=== PATIENT | female | born 1950 | race Caucasian/White ===

== ENCOUNTER 2024-07-15 12:23 | Observation (INO) ==
[2024-07-15 13:12] LABS: Basophils # (auto) 0.04 K/uL (0.00-0.20); Basophils % (auto) 0.5 %; Eosinophils # (auto) 0.05 K/uL (0.00-0.50); Eosinophils % (auto) 0.6 %; Hematocrit (blood only) 38.3 % (37.0-47.0); Hemoglobin 13.3 g/dl (12.0-16.0); Immature Granulocytes # (auto) 0.02 K/uL (0.01-0.20); Immature Granulocytes % (auto) 0.2 %; Lymphocytes # (auto) 1.52 K/uL (1.20-3.40); Lymphocytes % (auto) 17.3 %; Mean Corpuscular Hemoglobin 31.7 pg (25.0-34.0); Mean Corpuscular Hgb Conc 34.7 g/dL (32.0-36.0); Mean Corpuscular Volume 91.2 fL (80.0-100.0); Mean Platelet Volume 10.6 fL (9.4-12.4); Monocytes # (auto) 1.01 K/uL (0.11-0.59); Monocytes % (auto) 11.5 %; Neutrophils # (auto) 6.14 K/uL (1.40-6.50); Neutrophils % (auto) 69.9 %; Platelet Count 192 K/uL (130-400); RDW Coefficient of Variation 12.6 % (11.5-14.5); RDW Standard Deviation 42.3 fL (36.4-46.3); White Blood Count 8.78 K/ul (4.8-10.8)
[2024-07-15 13:28] LABS: Albumin Globulin Ratio 1.2 (0.9-2); Albumin Level 4.1 gm/dl (3.4-5.0); BUN Creatinine Ratio 14.1 (10-20); Bilirubin,Total 0.6 mg/dl (0.2-1.0); Creatinine Clr Calc Pharmacy 55.7 ml/min; Globulin 3.5 gm/dl (2.5-4.0); Potassium 3.6 mmol/L (3.5-5.1); Total Protein 7.6 gm/dl (6.0-8.3)
[2024-07-15 13:41] LABS: INR 0.9 (0.9-1.1); Partial Thromboplastin Time 26 Seconds (21-31); Prothrombin Time 10.1 Seconds (9.0-12.0)
[2024-07-15 13:54] LABS: Adenovirus PCR Not Detected (NotDetected); Bordetella parapertussis PCR Not Detected (NotDetected); Bordetella pertussis PCR Not Detected (NotDetected); Chlamydia pneumoniae PCR Not Detected (NotDetected); Coronavirus 229E PCR Not Detected (NotDetected); Coronavirus CoV-2 (COVID19)PCR Not Detected (NotDetected); Coronavirus HKU1 PCR Not Detected (NotDetected); Coronavirus NL63 PCR DETECTED (NotDetected); Coronavirus OC43PCR Not Detected (NotDetected); Human Metapneumovirus PCR Not Detected (NotDetected); Influenza A PCR Not Detected (NotDetected); Influenza B PCR Not Detected (NotDetected); Mycoplasma pneumoniae PCR Not Detected (NotDetected); Parainfluenza Virus 1 PCR Not Detected (NotDetected); Parainfluenza Virus 2 PCR Not Detected (NotDetected); Parainfluenza Virus 3 PCR Not Detected (NotDetected); Parainfluenza Virus 4 PCR Not Detected (NotDetected); Respiratory Syncytial VirusPCR Not Detected (NotDetected); Rhinovirus/Enterovirus PCR Not Detected (NotDetected)
--- NOTE | 2024-07-15 14:15 | XRay Report ---
XR chest 1V portable HISTORY: 73 years-old Female Chest pain, nonspecific COMPARISON: None TECHNIQUE: AP view of the chest FINDINGS: Cardiomediastinal and hilar silhouettes are within normal limits. No pneumothorax, pleural effusion, airspace consolidation or pulmonary edema. Bones of the chest appear grossly intact. IMPRESSION: No acute process. ACT 112: Negative or not required by law. The above report was generated using voice recognition software. It may contain grammatical, syntax o r spelling errors. Electronically signed by: Sincere Turner M.D. 07/15/2024 2:14 PM
--- NOTE | 2024-07-15 14:21 | Electrocardiogram Report ---
Test Reason : Blood Pressure : */* mmHG Vent. Rate : 123 BPM Atrial Rate : * BPM P-R Int : * ms QRS Dur : 80 ms QT Int : 310 ms P-R-T Axes : * 75 37 degrees QTcB Int : 443 ms Atrial flutter with rapid ventricular response with premature ventricular or aberrantly conducted com plexes Abnormal ECG When compared with ECG of 08-Sep-2021 11:02, Atrial flutter has replaced Sinus rhythm Vent. rate has increased by 47 bpm Confirmed by Gaudencio Leach ([id number]) on 07/15/2024 2:20:29 PM Referred By: REFERRED SELF Confirmed By: Gaudencio Leach
[2024-07-15] MEDS: OPTIRAY 320 125ml IV ONE (14:49)
--- NOTE | 2024-07-15 15:09 | CT Scan Report ---
CT ANGIOGRAM OF THE CHEST CLINICAL HISTORY: Syncope. COMPARISON STUDY: Chest radiograph performed earlier today. TECHNIQUE: Following the IV administration of 118 cc of Optiray 320, CT angiogram of the chest was pe rformed from the upper abdomen to the thoracic inlet utilizing the pulmonary embolus protocol. Images are reviewed in the axial, sagittal, and coronal planes. 3-D MIPS images are created and assessed. I V contrast was administered without complication. A dose lowering technique was utilized adhering to the principles of ALARA. CT DOSE: 273.47 mGy.cm FINDINGS: Thyroid: Unremarkable. Thoracic aorta: The caliber of the thoracic aorta is normal. No dissection is seen. Pulmonary vasculature: The caliber of the pulmonary trunk is normal. There are no filling defects elaine ntified in main, lobar, or segmental pulmonary branches to suggest pulmonary embolus. Heart: The heart is mildly enlarged. There is no pericardial effusion. Lungs and pleural spaces: The lungs and pleural spaces are clear. Subpleural biapical opacities repre sent scarring. Ground glass opacities within the lungs favor atelectasis. Mediastinum: There is no mediastinal lymphadenopathy. Arcelia: There is no hilar adenopathy. Axillae: There is no axillary lymphadenopathy. Upper abdomen: Visualized portions of the upper abdomen are unremarkable. Skeletal structures: No lytic or blastic bony lesions are seen. IMPRESSION: 1. No pulmonary emboli identified. 2. Mild cardiomegaly. 3. No acute traumatic findings within the chest. ACT 112: Negative or not required by law. Electronically signed by: Sreekanth Gonsalez M.D. 07/15/2024 3:08 PM
--- NOTE | 2024-07-15 15:29 | Emergency Department Note ---
Impression & Plan Syncope, Paroxysmal atrial fibrillation ED Provider Note NAME: KAMALJIT AVILA AGE: 73 SEX: F : 1950 ARRIVES VIA: Walk-In INFORMANT: Patient, ED PROVIDER(S): Vickie Lopez MD CHIEF COMPLAINT: Syncope x 3 HPI: This is 73-year-old female presenting for syncope. Patient states that she felt she had a cold starting Monday, 3 days ago. She started to feel better today. She went to the gym to go on the bicycle. She notes that she was barely able to do this. She came home and passed out for a total of 3 times. The last time her a catcher. She noted lightheaded and weak prior to each syncope. She does not think she hit her head. She is on blood thinners. She and her heart rate was elevated earlier as per her watch and feeling in her chest. She reports no shortness of breath at this time. Her Fitbit that she was in A-fib. The patient is never been in A-fib before. Patient notes that she went home and checked her blood pressure and it was in the 70s. She did drink k water order in an attempt to improve this. ROS: See above HPI for pertinent positives & negatives. A total of 10 systems reviewed and were otherwise negative. PAST MEDICAL HISTORY: See Below PAST SURGICAL HISTORY: See Below FAMILY HISTORY: See Below SOCIAL HISTORY: See Below HOME MEDICATIONS: See Below ALLERGIES: See Below VITALS: See Below PHYSICAL EXAMINATION: General: resting comfortably in no acute distress Head: Normocephalic and atraumatic Eyes: Normal inspection, extraocular muscles intact Ear, nose, throat: Normal external exam Neck: Normal range of motion Respiratory: lungs clear to auscultation bilaterally Cardiovascular: Regular rate/rhythm, no murmur GI: soft, nontender, no guarding or rebound Extremities: nontender, moves all extremities Neuro: The patient awake and alert, appropriately conversive, no focal deficits, symmetric faces Skin: Warm, dry, and intact this is MEDICAL DECISION MAKING: This is a 73-year-old female presenting for syncope. Patient has syncope 3 separate times today. She is felt ill with URI prodrome. Improved today but then had syncope x3. -First EKG here does show atrial fibrillation with RVR. -Patient's troponin which was sent at triage is slightly elevated at over 36 -With patient's symptoms of atrial fibrillation, troponin, syncope, will do a PE rule out however low likelihood of this without chest pain, hypoxia -Second EKG does show patient is now in sinus rhythm again. -Patient's PE scan is currently negative for pulm embolism. -No leukocytosis, anemia noted. Sodium is 131. Otherwise patient is positive for coronavirus NL 63 -At this time with patient having prodrome of URI, new onset of paroxysmal atrial fibrillation, syncope x 3, low blood pressure and elevated troponins, will discuss for admission with [facility] hospitalist team under Dr. Bushra Vladovinos for further workup. Differential diagnosis: Cardiogenic syncope, PE, dehydration, atrial fibrillation Independent History obtained from: Diagnostics interpreted by me: First ECG: ECG independently interpreted by me with atrial fibrillation with RVR at a rate of 123, QRS 80, QTc 433, no ST segment elevation consistent for STEMI Second ECG independently interpreted by me with normal sinus rhythm, rate of 69, normal axis, normal MN, normal QRS, normal QTc, no ST segment elevations consistent with STEMI criteria Cardiac Monitoring: An order was placed for continuous cardiac monitoring. The monitor shows a rate of 77 with sinus rhythm. Past Med/Surg History Problem List (Updated 07/15/24 @ 18:33 by Vickie Lopez MD) Paroxysmal atrial fibrillation (Acute) Syncope (Acute) Medical History (Updated 07/15/24 @ 18:33 by Vickie Lopez MD) History of basal cell carcinoma Age related osteoporosis Age-related macular degeneration Hyperlipidemia LDL goal <100 Primary open angle glaucoma Osteoporosis Surgical History (Updated 07/15/24 @ 16:57 by Nanci Alvarado PA-C) History of tubal ligation History of Mohs micrographic surgery for skin cancer History of hand surgery Family History (Updated 07/15/24 @ 16:58 by Nanci Alvarado PA-C) Other Glaucoma Rheumatoid arthritis Stroke Social History Smoking Status: Former smoker Preferred Language: [place] Feels Safe at Home: Yes Allergies Allergies Allergy/AdvReac Type Severity Reaction Status Date / Time Penicillins Allergy Hives Verified 07/15/24 16:55 Home Meds Home Medications Medication Instructions Recorded Confirmed alendronate 70 mg tablet 70 mg PO WK 07/15/24 07/15/24 brimonidine 0.15 % eye drops 1 drp ophthalmic (eye) TID 07/15/24 07/15/24 brinzolamide 1 %-brimonidine 0.2 % See Rx Instructions .Route .COMPLEX 07/15/24 07/15/24 eye drops,suspension (Simbrinza) eszopiclone 2 mg tablet 2 mg PO HS PRN Insomnia 07/15/24 07/15/24 latanoprostene bunod 0.024 % eye 1 drp ophthalmic (eye) HS 07/15/24 07/15/24 drops (Vyzulta) mv-mn-folic 200 mcg-vit K 15 1 cap PO BID 07/15/24 07/15/24 mcg-lutein 5 mg-zeaxanthin 1 mg capsule (PreserVision AREDS 2 Plus Multivit) rosuvastatin 5 mg tablet 5 mg PO DAILY 07/15/24 07/15/24 Previous Rx's Medication Instructions Recorded apixaban 5 mg tablet (Eliquis) 5 mg PO BID #60 tabs 07/15/24 metoprolol tartrate 25 mg tablet 12.5 mg (1/2 x 25 mg) PO BID 30 07/15/24 days #30 tabs Results & Data (ED) Vital Signs Vital Signs - 24 hr 07/15/24 12:26 07/15/24 14:02 07/15/24 14:45 Temperature 36.7 C Temperature Source Temporal Artery Scan Pulse Rate 94 H 73 Pulse Rate [Finger] 73 Respiratory Rate 19 18 Respiratory Effort / Characteristics Spontaneous Labored Non-Labored Spontaneous Respiratory Depth Normal Normal Respiratory Pattern Regular Regular Blood Pressure 105/71 Blood Pressure [Right Arm] 117/80 Blood Pressure Mean 82 Blood Pressure Mean [Right Arm] 92 Pulse Oximetry 99 100 Oxygen Delivery Method Room Air Room Air Sepsis Recent Fever Within 48 Hours No Sepsis New/Unexplained Change in Mental Status N/A Sepsis Action Taken by Nursing No Action Required 07/15/24 16:04 Temperature Temperature Source Pulse Rate Pulse Rate [Finger] 77 Respiratory Rate 18 Respiratory Effort / Characteristics Non-Labored Respiratory Depth Normal Respiratory Pattern Blood Pressure Blood Pressure [Right Arm] 137/84 Blood Pressure Mean Blood Pressure Mean [Right Arm] 101 Pulse Oximetry 95 Oxygen Delivery Method Room Air Sepsis Recent Fever Within 48 Hours Sepsis New/Unexplained Change in Mental Status Sepsis Action Taken by Nursing Laboratory Data 07/15/24 12:49 07/15/24 12:49 Lab Results 07/15/24 07/15/24 Range/Units 12:49 14:29 WBC 8.78 (4.8-10.8) K/ul RBC 4.20 (4.20-5.40) M/uL Hgb 13.3 (12.0-16.0) g/dl Hct 38.3 (37.0-47.0) % MCV 91.2 (80.0-100.0) fL MCH 31.7 (25.0-34.0) pg MCHC 34.7 (32.0-36.0) g/dL RDW Std Deviation 42.3 (36.4-46.3) fL RDW Coeff of Stephania 12.6 (11.5-14.5) % Plt Count 192 (130-400) K/uL MPV 10.6 (9.4-12.4) fL Immature Gran % (Auto) 0.2 % Neut % (Auto) 69.9 % Lymph % (Auto) 17.3 % [place] % (Auto) 11.5 % Eos % (Auto) 0.6 % Baso % (Auto) 0.5 % Neut # (Auto) 6.14 (1.40-6.50) K/uL Lymph # (Auto) 1.52 (1.20-3.40) K/uL [place] # (Auto) 1.01 H (0.11-0.59) K/uL Eos # (Auto) 0.05 (0.00-0.50) K/uL Baso # (Auto) 0.04 (0.00-0.20) K/uL Immature Gran # (Auto) 0.02 (0.01-0.20) K/uL PT 10.1 (9.0-12.0) Seconds INR 0.9 (0.9-1.1) APTT 26 (21-31) Seconds PTT Ratio 1.0 Sodium 131 L (136-145) mmol/L Potassium 3.6 (3.5-5.1) mmol/L Chloride 98 (98-107) mmol/L Carbon Dioxide 24 (21-32) mmol/L Anion Gap 9 (3-11) BUN 11 (6-23) mg/dl Creatinine 0.78 (0.6-1.2) mg/dl Est Cr Clr Drug Dosing 55.7 ml/min eGFR 80.65 BUN/Creatinine Ratio 14.1 (10-20) Glucose 146 H (70-99(Fasting)) mg/dl Calcium 9.0 (8.6-10.3) mg/dl Magnesium 2.3 (1.7-2.4) mg/dl Total Bilirubin 0.6 (0.2-1.0) mg/dl AST 30 (13-39) U/L ALT 28 (7-52) U/L Alkaline Phosphatase 62 (34-104) U/L Troponin I High Sens 36.0 H 33.4 H (0-14) pg/ml Total Protein 7.6 (6.0-8.3) gm/dl Albumin 4.1 (3.4-5.0) gm/dl Globulin 3.5 (2.5-4.0) gm/dl Albumin/Globulin Ratio 1.2 (0.9-2) TSH 2.374 (0.300-4.500) uIu/ml Adenovirus (PCR) Not Detected (NotDetected) B. pertussis DNA (PCR) Not Detected (NotDetected) B.parapertussis DNA PCR Not Detected (NotDetected) C. pneumoniae DNA (PCR) Not Detected (NotDetected) Coronavirus OC43 (PCR) Not Detected (NotDetected) Coronavirus HKU1 (PCR) Not Detected (NotDetected) Coronavirus 229E (PCR) Not Detected (NotDetected) SARS-CoV-2 (PCR) Not Detected (NotDetected) Coronavirus NL63 (PCR) DETECTED A (NotDetected) Human Metapneumovir PCR Not Detected (NotDetected) Influenza Type A (PCR) Not Detected (NotDetected) Influenza Type B (PCR) Not Detected (NotDetected) M. pneumoniae (PCR) Not Detected (NotDetected) Parainfluenza 1 (PCR) Not Detected (NotDetected) Parainfluenza 2 (PCR) Not Detected (NotDetected) Parainfluenza 3 (PCR) Not Detected (NotDetected) Parainfluenza 4 (PCR) Not Detected (NotDetected) RSV (PCR) Not Detected (NotDetected) Entero/Rhino (PCR) Not Detected (NotDetected) Administered Medications Discontinued Medications Ioversol (Optiray 320 125ml) 118 ml IV ONCE ONE Stop: 07/15/24 14:50 Last Admin: 07/15/24 14:49 Dose: 118 ml Documented By: [facility] Imaging Data Radiologist's Impression: Chest X-Ray 07/15/24 12:33 XR chest 1V portable HISTORY: 73 years-old Female Chest pain, nonspecific COMPARISON: None TECHNIQUE: AP view of the chest FINDINGS: Cardiomediastinal and hilar silhouettes are within normal limits. No pneumothorax, pleural effusion, airspace consolidation or pulmonary edema. Bones of the chest appear grossly intact. IMPRESSION: No acute process. ACT 112: Negative or not required by law. The above report was generated using voice recognition software. It may contain grammatical, syntax or spelling errors. Electronically signed by: Sincere Turner M.D. 07/15/2024 2:14 PM Chest CTA 07/15/24 14:21 CT ANGIOGRAM OF THE CHEST CLINICAL HISTORY: Syncope. COMPARISON STUDY: Chest radiograph performed earlier today. TECHNIQUE: Following the IV administration of 118 cc of Optiray 320, CT angiogram of the chest was performed from the upper abdomen to the thoracic inlet utilizing the pulmonary embolus protocol. Images are reviewed in the axial, sagittal, and coronal planes. 3-D MIPS images are created and assessed. IV contrast was administered without complication. A dose lowering technique was utilized adhering to the principles of ALARA. CT DOSE: 273.47 mGy.cm FINDINGS: Thyroid: Unremarkable. Thoracic aorta: The caliber of the thoracic aorta is normal. No dissection is seen. Pulmonary vasculature: The caliber of the pulmonary trunk is normal. There are no filling defects identified in main, lobar, or segmental pulmonary branches to suggest pulmonary embolus. Heart: The heart is mildly enlarged. There is no pericardial effusion. Lungs and pleural spaces: The lungs and pleural spaces are clear. Subpleural biapical opacities represent scarring. Ground glass opacities within the lungs favor atelectasis. Mediastinum: There is no mediastinal lymphadenopathy. Arcelia: There is no hilar adenopathy. Axillae: There is no axillary lymphadenopathy. Upper abdomen: Visualized portions of the upper abdomen are unremarkable. Skeletal structures: No lytic or blastic bony lesions are seen. IMPRESSION: 1. No pulmonary emboli identified. 2. Mild cardiomegaly. 3. No acute traumatic findings within the chest. ACT 112: Negative or not required by law. Electronically signed by: Sreekanth Gonsalez M.D. 07/15/2024 3:08 PM Carotid Doppler Study 07/15/24 16:04 EXAM: US Duplex Bilateral Extracranial Arteries INDICATION: Syncope TECHNIQUE: Real-time duplex ultrasound scan of the extracranial arteries integrating B-mode two-dimensional vascular structure, Doppler spectral analysis and color flow Doppler imaging. COMPARISON: No relevant prior studies available. FINDINGS: Right common carotid artery: Mild intimal thickening. Peak systolic velocity 84 cm/s. No occlusion or segmental stenosis on color flow and spectral Doppler imaging. Right internal carotid artery: Minimal plaque and intimal thickening. Peak systolic velocity 117 cm/s. No occlusion or segmental stenosis on color flow and spectral Doppler imaging. Right external carotid artery: No abnormality noted. No occlusion or segmental stenosis on color flow and spectral Doppler imaging. Right vertebral artery: No abnormality noted. Antegrade flow. Right ICA/CCA ratio: 1.4. Within normal limits. Left common carotid artery: Mild intimal thickening. Peak systolic velocity 84 cm/s. No occlusion or segmental stenosis on color flow and spectral Doppler imaging. Left internal carotid artery: Mild plaque noted. Peak systolic velocity 106 cm/s. No occlusion or segmental stenosis on color flow and spectral Doppler imaging. Left external carotid artery: No abnormality noted. No occlusion or segmental stenosis on color flow and spectral Doppler imaging. Left vertebral artery: No abnormality noted. Antegrade flow. Left ICA/CCA ratio: 1.1. Within normal limits. Lymph nodes: No abnormality noted. No lymphadenopathy. CAROTID STENOSIS REFERENCE USING IAC CRITERIA: Mild - <50% stenosis. ICA PSV is less than 180 cm/s and plaque or intimal thickening is visible. Moderate - 50-69% stenosis. ICA PSV is 180 to 230 cm/s and plaque is visible. Severe - 70-94% stenosis. ICA PSV is more than 230 cm/s and visible plaque with lumen narrowing is seen. Near occlusion - 95-99% stenosis. ICA PSV is variable and significant plaque with luminal narrowing is seen. Occluded - 100% stenosis. No flow identified. IMPRESSION: There is no hemodynamically significant internal carotid stenosis. ACT 112: N/A Electronically signed by Sol Gregorio 07-15-2024 5:11 PM Discharge Plan Visit Data Chief Complaint: Syncope Stated Complaint: SYNCOPE, AFIB, HYPOTENSION ED Provider: Vickie Lopez Discharge Problem: Syncope, Paroxysmal atrial fibrillation Patient Disposition: Admitted As Inpatient Condition: Good Discharge Instructions Interventions: ED Discharge Assessment Last Done: 07/15/24 18:13 Discharge Problem: Syncope Qualifiers: Syncope type: unspecified Qualified Code(s): R55 - Syncope and collapse
--- NOTE | 2024-07-15 16:31 | History & Physical Report ---
Date of Service July 15, 2024 Assessment & Plan (1) Syncope: (2) Paroxysmal atrial fibrillation: Admission and Anticipated Discharge Date Admission Date: This is a 73 y/o female with hyperlipidemia, primary open angle glaucoma, prior basal cell carcinoma, osteoporosis, and macular degeneration who presents for evaluation of syncope. Syncope likely secondary to episode of atrial fibrillation with RVR, triggered by current viral illness. Initial troponin mildly elevated at 36.0, repeat 33.4. Negative stress test one year ago. #Syncope #Paroxysmal atrial fibrillation - presented in atrial fibrillation with RVR, now in NSR - Check carotid duplex - Check orthostatics - TSH w/ reflex T4, mag If work-up negative, pt would prefer to be discharged for outpatient, which seems reasonable as no additional testing would be indicated at this time. Would discharge on metoprolol BID and Eliquis until seen by cardiology. Possible d/c later today pending above. Pt seen and reviewed with collaborating physician, Dr. Valdovinos. Plan of care discussed and as outlined above. Thom Alvarado PA-C History of Present Illness Chief Complaint: syncope Primary Care Provider: Mary Kenyon, This is a 73 y/o female with hyperlipidemia, primary open angle glaucoma, prior basal cell carcinoma, osteoporosis, and macular degeneration who presents for evaluation of syncope. Pt reports that she is typically very active at baseline reportedly having walked 6 million steps last year without chest pain or dyspnea. Over the last several days, she's had a bad cold but was starting to feel better. This morning, when she got up, she felt like she was dizzy then had a syncopal episode. Her caught her and reported that she was out for around 15 seconds. Attributes symptoms today to being sick. Has been drinking water to stay hydrated. Of note, she had a stress test last year with a hypertensive response so recommended to start on lisinopril. That night, she started with cold symptoms so thought elevated BP may be related to that. When she started the lisinopril, she developed episodes of low BP so her dose was decreased before ultimately being stopped. She is on a statin for hyperlipidemia. Saw cardiology 04/28/23 for LAIRD and abnormal EKG - recommended exercise stress echo. Stress Echo 07/28/23 - negative for inducible ischemia, exercise test terminated due to hypertensive BP response (peak 230/96) with patient having achieved target heart rate Resting Echo 07/28/23 - normal LV wall thickness and wall motion, LVEF 55-59%, LV diastolic dysfunction is moderately abnormal (grade II), no significant valvular heart disease. Allergies Allergy/AdvReac Type Severity Reaction Status Date / Time Penicillins Allergy Hives Verified 07/15/24 16:55 Home Medications Medication Instructions Recorded Confirmed Type alendronate 70 mg tablet 70 mg PO WK 07/15/24 07/15/24 History brimonidine 0.15 % eye drops 1 drp ophthalmic (eye) TID 07/15/24 07/15/24 History brinzolamide 1 %-brimonidine 0.2 % See Rx Instructions .Route .COMPLEX 07/15/24 07/15/24 History eye drops,suspension (Simbrinza) eszopiclone 2 mg tablet 2 mg PO HS PRN Insomnia 07/15/24 07/15/24 History latanoprostene bunod 0.024 % eye 1 drp ophthalmic (eye) HS 07/15/24 07/15/24 History drops (Vyzulta) mv-mn-folic 200 mcg-vit K 15 1 cap PO BID 07/15/24 07/15/24 History mcg-lutein 5 mg-zeaxanthin 1 mg capsule (PreserVision AREDS 2 Plus Multivit) rosuvastatin 5 mg tablet 5 mg PO DAILY 07/15/24 07/15/24 History Past Med/Surg History Problem List (Updated 07/15/24 @ 17:29 by Nanci Alvarado PA-C) Paroxysmal atrial fibrillation Syncope Medical History (Updated 07/15/24 @ 17:29 by Nanci Alvarado PA-C) History of basal cell carcinoma Age related osteoporosis Age-related macular degeneration Hyperlipidemia LDL goal <100 Primary open angle glaucoma Osteoporosis Surgical History (Updated 07/15/24 @ 16:57 by Nanci Alvarado PA-C) History of tubal ligation History of Mohs micrographic surgery for skin cancer History of hand surgery Family History (Updated 07/15/24 @ 16:58 by Nanci Alvarado PA-C) Other Glaucoma Rheumatoid arthritis Stroke Social History Smoking Status: Former smoker Preferred Language: Belgian Feels Safe at Home: Yes Review of Systems Review of Systems: All systems reviewed & are unremarkable except as noted in Subjective Physical Exam Physical Exam: Please see physician note for details of the physical exam. Results & Data Results & Data Vital Signs (Past 12 Hours) Vital Signs Temp Pulse Pulse Resp BP BP Pulse Ox 07/15/24 16:04 77 18 137/84 95 07/15/24 14:45 73 07/15/24 14:02 73 18 117/80 100 07/15/24 12:26 36.7 C 94 H 19 105/71 99 O2 Del Method 07/15/24 16:04 Room Air 07/15/24 14:45 07/15/24 14:02 Room Air 07/15/24 12:26 Room Air Laboratory Results Lab Results 07/15/24 07/15/24 Range/Units 12:49 14:29 WBC 8.78 (4.8-10.8) K/ul RBC 4.20 (4.20-5.40) M/uL Hgb 13.3 (12.0-16.0) g/dl Hct 38.3 (37.0-47.0) % MCV 91.2 (80.0-100.0) fL MCH 31.7 (25.0-34.0) pg MCHC 34.7 (32.0-36.0) g/dL RDW Std Deviation 42.3 (36.4-46.3) fL RDW Coeff of Stephania 12.6 (11.5-14.5) % Plt Count 192 (130-400) K/uL MPV 10.6 (9.4-12.4) fL Immature Gran % (Auto) 0.2 % Neut % (Auto) 69.9 % Lymph % (Auto) 17.3 % Alfalfa % (Auto) 11.5 % Eos % (Auto) 0.6 % Baso % (Auto) 0.5 % Neut # (Auto) 6.14 (1.40-6.50) K/uL Lymph # (Auto) 1.52 (1.20-3.40) K/uL Alfalfa # (Auto) 1.01 H (0.11-0.59) K/uL Eos # (Auto) 0.05 (0.00-0.50) K/uL Baso # (Auto) 0.04 (0.00-0.20) K/uL Immature Gran # (Auto) 0.02 (0.01-0.20) K/uL PT 10.1 (9.0-12.0) Seconds INR 0.9 (0.9-1.1) APTT 26 (21-31) Seconds PTT Ratio 1.0 Sodium 131 L (136-145) mmol/L Potassium 3.6 (3.5-5.1) mmol/L Chloride 98 (98-107) mmol/L Carbon Dioxide 24 (21-32) mmol/L Anion Gap 9 (3-11) BUN 11 (6-23) mg/dl Creatinine 0.78 (0.6-1.2) mg/dl Est Cr Clr Drug Dosing 55.7 ml/min eGFR 80.65 BUN/Creatinine Ratio 14.1 (10-20) Glucose 146 H (70-99(Fasting)) mg/dl Calcium 9.0 (8.6-10.3) mg/dl Total Bilirubin 0.6 (0.2-1.0) mg/dl AST 30 (13-39) U/L ALT 28 (7-52) U/L Alkaline Phosphatase 62 (34-104) U/L Troponin I High Sens 36.0 H 33.4 H (0-14) pg/ml Total Protein 7.6 (6.0-8.3) gm/dl Albumin 4.1 (3.4-5.0) gm/dl Globulin 3.5 (2.5-4.0) gm/dl Albumin/Globulin Ratio 1.2 (0.9-2) Adenovirus (PCR) Not Detected (NotDetected) B. pertussis DNA (PCR) Not Detected (NotDetected) B.parapertussis DNA PCR Not Detected (NotDetected) C. pneumoniae DNA (PCR) Not Detected (NotDetected) Coronavirus OC43 (PCR) Not Detected (NotDetected) Coronavirus HKU1 (PCR) Not Detected (NotDetected) Coronavirus 229E (PCR) Not Detected (NotDetected) SARS-CoV-2 (PCR) Not Detected (NotDetected) Coronavirus NL63 (PCR) DETECTED A (NotDetected) Human Metapneumovir PCR Not Detected (NotDetected) Influenza Type A (PCR) Not Detected (NotDetected) Influenza Type B (PCR) Not Detected (NotDetected) M. pneumoniae (PCR) Not Detected (NotDetected) Parainfluenza 1 (PCR) Not Detected (NotDetected) Parainfluenza 2 (PCR) Not Detected (NotDetected) Parainfluenza 3 (PCR) Not Detected (NotDetected) Parainfluenza 4 (PCR) Not Detected (NotDetected) RSV (PCR) Not Detected (NotDetected) Entero/Rhino (PCR) Not Detected (NotDetected) Diagnostic Findings Chest X-Ray 07/15/24 12:33 XR chest 1V portable HISTORY: 73 years-old Female Chest pain, nonspecific COMPARISON: None TECHNIQUE: AP view of the chest FINDINGS: Cardiomediastinal and hilar silhouettes are within normal limits. No pneumothorax, pleural effusion, airspace consolidation or pulmonary edema. Bones of the chest appear grossly intact. IMPRESSION: No acute process. ACT 112: Negative or not required by law. The above report was generated using voice recognition software. It may contain grammatical, syntax or spelling errors. Electronically signed by: Sincere Turner M.D. 07/15/2024 2:14 PM Chest CTA 07/15/24 14:21 CT ANGIOGRAM OF THE CHEST CLINICAL HISTORY: Syncope. COMPARISON STUDY: Chest radiograph performed earlier today. TECHNIQUE: Following the IV administration of 118 cc of Optiray 320, CT angiogram of the chest was performed from the upper abdomen to the thoracic inlet utilizing the pulmonary embolus protocol. Images are reviewed in the axial, sagittal, and coronal planes. 3-D MIPS images are created and assessed. IV contrast was administered without complication. A dose lowering technique was utilized adhering to the principles of ALARA. CT DOSE: 273.47 mGy.cm FINDINGS: Thyroid: Unremarkable. Thoracic aorta: The caliber of the thoracic aorta is normal. No dissection is seen. Pulmonary vasculature: The caliber of the pulmonary trunk is normal. There are no filling defects identified in main, lobar, or segmental pulmonary branches to suggest pulmonary embolus. Heart: The heart is mildly enlarged. There is no pericardial effusion. Lungs and pleural spaces: The lungs and pleural spaces are clear. Subpleural biapical opacities represent scarring. Ground glass opacities within the lungs favor atelectasis. Mediastinum: There is no mediastinal lymphadenopathy. Arcelia: There is no hilar adenopathy. Axillae: There is no axillary lymphadenopathy. Upper abdomen: Visualized portions of the upper abdomen are unremarkable. Skeletal structures: No lytic or blastic bony lesions are seen. IMPRESSION: 1. No pulmonary emboli identified. 2. Mild cardiomegaly. 3. No acute traumatic findings within the chest. ACT 112: Negative or not required by law. Electronically signed by: Sreekanth Gonsalez M.D. 07/15/2024 3:08 PM Medications Administered Discontinued Medications Ioversol (Optiray 320 125ml) 118 ml IV ONCE ONE Stop: 07/15/24 14:50 Last Admin: 07/15/24 14:49 Dose: 118 ml Documented By: KSF Supervising Physician Co-Signing Physician Notes I have seen and discussed the case with the collaborating advanced practitioner. I agree with the above H&P. I have reviewed and confirmed the patients medical history, the findings on physical examination, and the patients diagnosis and treatment plan with Jenny NICOLAS and agree with the information documented. Ms. Parker is a 73 yo woman admitted for syncope evaluation. Patient was noted to have a fib rvr with rates up to 120-140s but spontaneously converted to NSR Patient reports dealing with bad "cold" for over a week and feeling somewhat better until her syncopal episodes which have since resolved. PAtient denies LAIRD, SOB, palpitations GENERAL APPEARANCE: AxOx4, generally well-appearing f, no acute distress. HEENT: NC, AT. MMM. EOMI, clear conjunctiva on left, erythematous (chronic) on right, oropharynx clear. NECK: Supple without lymphadenopathy. No stiffness or restricted ROM. HEART: Normal rate and regular rhythm, normal S1/S1, no m/r/g LUNGS: CTAB, moving air well. No crackles or wheezes are heard. ABDOMEN: Soft, nontender, nondistended with good bowel sounds heard. BACK: No CVAT, no obvious deformity. EXTREMITIES: Without cyanosis, clubbing or edema. NEUROLOGICAL: Grossly nonfocal. Alert and oriented, moving all 4 extremities. CN not formally tested but appear grossly intact. Skin: Warm and dry without any rash. #New onset a fib rvr, now NSR no episodes previously reported Start metoprolol 12.5mg bid Start Apixban 5mg for CHadsVASC 2 with plan for discussion with pcp and cardiology as an op after holter monitor ECHO from 2023 without LVOT or valvular disease, stress test 2023 negative symptomatic management for coronavirus rest of plan as above I spent a total of 15 minutes coordinating, documenting, and providing care for this patient excluding time spent in the performance of separately billed services. All of the aforementioned completed outside of collaborating with the assigned advanced practitioner for a full treatment plan. I have reviewed the advanced practitioner's documentation, and I agree with, and take responsibility for the plan of care (1) Syncope Syncope type: unspecified Qualified Code(s): R55 - Syncope and collapse
--- NOTE | 2024-07-15 17:11 | Ultrasound Report ---
EXAM: US Duplex Bilateral Extracranial Arteries INDICATION: Syncope TECHNIQUE: Real-time duplex ultrasound scan of the extracranial arteries integrating B-mode two-dimensional vascular structure, Doppler spectral analysis and color flow Doppler imaging. COMPARISON: No relevant prior studies available. FINDINGS: Right common carotid artery: Mild intimal thickening. Peak systolic velocity 84 cm/s. No occlusion or segmental stenosis on color flow and spectral Doppler imaging. Right internal carotid artery: Minimal plaque and intimal thickening. Peak systolic velocity 117 cm/s. No occlusion or segmental stenosis on color flow and spectral Doppler imaging. Right external carotid artery: No abnormality noted. No occlusion or segmental stenosis on color flow and spectral Doppler imaging. Right vertebral artery: No abnormality noted. Antegrade flow. Right ICA/CCA ratio: 1.4. Within normal limits. Left common carotid artery: Mild intimal thickening. Peak systolic velocity 84 cm/s. No occlusion or segmental stenosis on color flow and spectral Doppler imaging. Left internal carotid artery: Mild plaque noted. Peak systolic velocity 106 cm/s. No occlusion or segmental stenosis on color flow and spectral Doppler imaging. Left external carotid artery: No abnormality noted. No occlusion or segmental stenosis on color flow and spectral Doppler imaging. Left vertebral artery: No abnormality noted. Antegrade flow. Left ICA/CCA ratio: 1.1. Within normal limits. Lymph nodes: No abnormality noted. No lymphadenopathy. CAROTID STENOSIS REFERENCE USING IAC CRITERIA: Mild - <50% stenosis. ICA PSV is less than 180 cm/s and plaque or intimal thickening is visible. Moderate - 50-69% stenosis. ICA PSV is 180 to 230 cm/s and plaque is visible. Severe - 70-94% stenosis. ICA PSV is more than 230 cm/s and visible plaque with lumen narrowing is seen. Near occlusion - 95-99% stenosis. ICA PSV is variable and significant plaque with luminal narrowing is seen. Occluded - 100% stenosis. No flow identified. IMPRESSION: There is no hemodynamically significant internal carotid stenosis. ACT 112: N/A Electronically signed by Sol Gregorio 07-15-2024 5:11 PM
[2024-07-15 17:44] LABS: Magnesium 2.3 mg/dl (1.7-2.4)
[2024-07-15] MEDS ORDERED: ACETAMINOPHEN 325 MG TAB PO PRN (18:12)
--- NOTE | 2024-07-15 18:16 | Discharge Summary ---
Date of Service July 15, 2024 Admission HPI Per Admitting Provider This is a 73 y/o female with hyperlipidemia, primary open angle glaucoma, prior basal cell carcinoma, osteoporosis, and macular degeneration who presents for evaluation of syncope. Pt reports that she is typically very active at baseline reportedly having walked 6 million steps last year without chest pain or dyspnea. Over the last several days, she's had a bad cold but was starting to feel better. This morning, when she got up, she felt like she was dizzy then had a syncopal episode. Her caught her and reported that she was out for around 15 seconds. Attributes symptoms today to being sick. Has been drinking water to stay hydrated. Of note, she had a stress test last year with a hypertensive response so recommended to start on lisinopril. That night, she started with cold symptoms so thought elevated BP may be related to that. When she started the lisinopril, she developed episodes of low BP so her dose was decreased before ultimately being stopped. She is on a statin for hyperlipidemia. Saw cardiology 04/28/23 for LAIRD and abnormal EKG - recommended exercise stress echo. Stress Echo 07/28/23 - negative for inducible ischemia, exercise test terminated due to hypertensive BP response (peak 230/96) with patient having achieved target heart rate Resting Echo 07/28/23 - normal LV wall thickness and wall motion, LVEF 55-59%, LV diastolic dysfunction is moderately abnormal (grade II), no significant valvular heart disease. Admission Exam Per Admitting Provider GENERAL APPEARANCE: AxOx4, generally well-appearing f, no acute distress. HEENT: NC, AT. MMM. EOMI, clear conjunctiva on left, erythematous (chronic) on right, oropharynx clear. NECK: Supple without lymphadenopathy. No stiffness or restricted ROM. HEART: Normal rate and regular rhythm, normal S1/S1, no m/r/g LUNGS: CTAB, moving air well. No crackles or wheezes are heard. ABDOMEN: Soft, nontender, nondistended with good bowel sounds heard. BACK: No CVAT, no obvious deformity. EXTREMITIES: Without cyanosis, clubbing or edema. NEUROLOGICAL: Grossly nonfocal. Alert and oriented, moving all 4 extremities. CN not formally tested but appear grossly intact. Skin: Warm and dry without any rash. Principal Diagnosis Syncope Discharge Data Allergies Allergy/AdvReac Type Severity Reaction Status Date / Time Penicillins Allergy Hives Verified 07/15/24 16:55 Consultations 07/15/24 15:58 ED Decision to Admit Stat Ordered Studies 07/15/24 14:21 CT for pulmonary embolism PE [CT angio chest PE protocol] Stat 07/15/24 16:04 US carotid doppler BI Stat Hospital Course (1) Syncope: Pt presented to the ED after syncopal event at home. She notes recent URI - [employer] in the ED was positive for coronavirus NL63. On initial presentation to the ED, pt was noted to be in atrial fibrillation with rate in the 120s to 140s but spontaneously converted to NSR. Carotid duplex were negative for stenosis. Orthostatics in the ED were normal. Syncope presumed secondary to transient atrial fibrillation with RVR likely triggered by viral URI. Initial troponin minimally elevated, decreased on repeat. Negative outpatient stress test in 2023 noted. (2) Paroxysmal atrial fibrillation: Likely triggered by viral URI. Spontaneously converted to NSR. Started metoprolol 12.5 mg bid. Starting apixaban 5 mg BID due to elevated [id number] score of 2. Will need to f/u with PCP and cardiology as outpatient for Zio patch or Holter. Total Time Total Time Spent Total Time Spent (In Minutes): 36 minutes Discharge Plan Discharge Items Patient Disposition: Home - Self-Care Reason For Visit: SYNCOPE Discharge Diagnosis: Paroxysmal atrial fibrillation Condition on Discharge: Good Activity: Resume your previous activity Bathing: No limitations Non-emergency contact: Primary Care Provider Call non-emergency contact if: you have any medication questions Follow-up/Referrals: Mary Kenyon, [Primary Care Provider] - Diet: Heart Healthy Addtl Attending Provider Instructions: You were admitted for syncope (passing out) and noted to have atrial fibrillation with rapid rate. Your heart rates went back to normal rhythm. Your evaluation was otherwise normal. You were started on Metoprolol 12.5 mg two times a day, your next dose is this evening You were started on Apixaban 5mg two times a day, your first dose is this evening You will need follow up with your PCP and Cardiology for continued evaluation of atrial fibrillation Pending Studies at Discharge: No Stand-Alone Forms: My [employer] [place] [employer] [place], Smoking Cessation Medications and DC Order Prescriptions: New metoprolol tartrate 25 mg Tablet 12.5 mg PO BID 30 Days Qty: 30 0RF Eliquis 5 mg tablet 5 mg PO BID Qty: 60 0RF Continued alendronate 70 mg tablet 70 mg PO WK brimonidine 0.15 % drops 1 drp ophthalmic (eye) TID rosuvastatin 5 mg tablet 5 mg PO DAILY eszopiclone 2 mg tablet 2 mg PO HS PRN (Reason: Insomnia) Simbrinza 1-0.2 % drops,suspension See Rx Instructions .ROUTE .COMPLEX Rx Instructions: take as directed by ophthalmology Vyzulta 0.024 % drops 1 drp ophthalmic (eye) HS PreserVision AREDS 2 Plus MV 200 mcg-15 mcg- 5 mg-1 mg Capsule 1 cap PO BID Discharge Orders: Discharge Order (Routine); Ordered 07/15/24 Ordered By: Bushra Valdovinos Admission Data Admit Date/Time: 07/15/24 16:49 Attending Provider: Bushra Valdovinos Admit Provider: Bushra Valdovinos Primary Care Provider: Mary Kenyon Other Providers: Bushra Valdovinos Supervising Physician Co-Signing Physician Notes I have seen and discussed the case with the collaborating advanced practitioner. I agree with the above DS. I have reviewed and confirmed the patients medical history, the findings on physical examination, and the patients diagnosis and treatment plan with DON NICOLAS and agree with the information documented. Patient with normal carotid US, history of recent normal ECHO, orthostats negative. elevated trop iso a fib rvr Discharge with PO metorpolol BID and apixaban bid. Follow up with pcp and cards. EXAM unchanged since admission, CV with RRR no MRG, lungs CTABL I spent a total of 10 minutes coordinating, documenting, and providing care for this patient excluding time spent in the performance of separately billed services. All of the aforementioned completed outside of collaborating with the assigned advanced practitioner for a full treatment plan. I have reviewed the advanced practitioner's documentation, and I agree with, and take responsibility for the plan of care
[2024-07-15 18:19] LABS: Thyroid Stimulating Hormone 2.374 uIu/ml (0.300-4.500)
--- OUTSIDE RECORDS SUMMARY | 2024-07-15 20:40 | External Medical Summary | Summary of Care ---
Author Name Unknown Organization [facility] [address] [facility] [address] Phone [phone] Care Team Providers Care Elastic Attacher Chainstitch Name Role Phone Mary Kenyon DO Primary Care Provider Encounter Details Date Type Department Care Team (Late st Contact Info) Description 05/09/2024 Population Health External Data Unspecified Department Allergies Active Allergy Reactions Criticality Noted Date Comments Amoxicillin 06/27/2023 Other Reaction(s): rash Penicillins Hives 04/26/2018 documented as of this encounter (statuses as of 05/09/2024) Medications Multiple Vitamins-Mineral s (MULTIVITAMIN ADULT) TABSIndications: Postmenopausal status, age-related Take 1 Tab by mouth daily. Active Calcium Citrate-Vitamin D 315-250 MG-UNIT Oral TabletIndication s:Postmenopausal status, age-related Take 1 Tab by mouth daily. Active Estradiol 0.1 MG/GM vaginal creamIndications :Vaginal dryness Administer 2 g into the vagina as needed. Active fluconazole (DIFLUCAN) 150 MG Tablet Take 1 Tablet by mouth as needed for Other (yeast infection). Active ibuprofen (MOTRIN) 200 MG Tablet Take 1 Tablet by mouth every 4 hours as needed for Pain. Active Latanoprostene Bunod 0.024 % Ophthalmic Solution 1 Drop at bedtime . 1 drop both eyes 9 Active Brimonidine Tartrate 0.15 % Ophthalmic Solution (Alphagan P) 1 Drop in the morning and 1 Drop at noon and 1 Drop before bedtime. R eye only. Active PreserVision AREDS 2+Multi Vit Oral Capsule Take 1 Capsule by mouth 2 times a day. Active Eszopiclone 2 MG Oral TabletIndication s:Primary insomnia Take 1 Tablet by mouth at bedtime as needed for Sleep. 30 Tablet 1 4 Active Alendronate Sodium 70 MG Oral Tablet (Fosamax)Indicat ions:Age-related osteoporosis without current pathological fracture TAKE 1 TABLET BY MOUTH ONCE WEEKLY FIRST THING IN THE MORNING ON AN EMPTY STOMACH WITH 8 OUNCES OF WATER WAIT 30 MINUTES BEFORE EATING, DRINKING OR TAKING OTHER MEDICATIONS 12 Tablet 2 4 Active Penciclovir 1 % External Cream (Denavir) Apply 1 Application topically to affected area every 2 hours while awake. Apply to shingles lesions as needed for outbreak 1.5 g 1 4 Active valACYclovir HCl 1 GM Oral Tablet (Valtrex) Take 0.5 Tablets by mouth in the morning and 0.5 Tablets before bedtime. For HSV outbreak. 20 Tablet 1 4 Active Lisinopril 10 MG Oral Tablet (Prinivil) Take 1 Tablet by mouth in the morning. 90 Tablet 1 4 Active LORazepam 0.5 MG Oral Tablet (Ativan)Indicati ons:Primary insomnia Take 0.5 Tablets by mouth daily as needed for Insomnia. 30 Tablet 1 4 Active Simbrinza 1-0.2 % Ophthalmic Suspension (Brinzolamide-Br imonidine) Instill into eye. Active Rosuvastatin Calcium 5 MG Oral Tablet (Crestor) Take 1 Tablet by mouth in the morning. 90 Tablet 3 5 Active Hospital, Clinic, or Other Facility Administered Medication Ordered Dose Route Frequency Start Date End Date Status lidocaine 2 % inj 6 mgIndications:Exudative age-related macular degeneration of left eye with active choroidal neovascularization (HCC) 6 mg IJ PRN 08/23/2022 Active Faricimab-svoa (Vabysmo) intravitreal inj 6 mgIndications:Exudative age-related macular degeneration of left eye with active choroidal neovascularization (HCC),Intermediate stage 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 6 mg IZ PRN 09/05/2023 09/04/2024 Active ROPivacaine (Naropin) inj 1.5 mgIndications:Exudative age-related macular degeneration of left eye with active choroidal neovascularization (HCC),Intermediate stage 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 1.5 mg IJ PRN 09/05/2023 09/04/2024 Active Faricimab-svoa (Vabysmo) prefilled syringe inj 6 mgIndications:Exudative age-related macular degeneration of left eye with active choroidal neovascularization (HCC) 6 mg IZ PRN 02/27/2024 02/26/2025 Active documented as of this encounter (statuses as of 05/09/2024) Active Problems Problem Noted Date Diagnosed Date Hyperlipidemia with target LDL less than 100 03/2024 Exudative age-related macula r degeneration of left eye with active choroidal neovascularization 04/25/2022 Exudative age-related macula r degeneration of left eye with active choroidal neovascularization 04/25/2022 Primary open angle glaucoma 04/25/2022 Persistent insomnia 04/07/2020 Postmenopausal atrophic vaginitis 04/07/2020 Age related osteoporosis 04/07/2020 BMI less than 19,adult 04/07/2020 Basal cell carcinoma (BCC) of ala nasi 9 documented as of this encounter (statuses as of 05/09/2024) Resolved Problems Problem Noted Date Diagnosed Date Resolved Date Encounter for examination fo r normal comparison and control in clinical research program 03/12/2018 11/18/2019 Overview (08/03/2020): DO NOT DELETE [facility] DETECT Study: Project # [id number], Sales Department Clerk: Beltran Gann, PhD. SUMMARY: Goal: Establish test characteristics (sensitivity, specificity, PPV, NPV) of a circulating tumor DNA (ctDNA)-based test for cancer. Hypothesis: Circulating tumor DNA (ctDNA) and elevated protein biomarkers (together, the marker panel) can be detected in asymptomatic individuals with early cancer. Specific Aim 1: Determine the prevalence of a positive marker panel test in a prospective clinical cohort of 10,000 asymptomatic women ages 65 to 75 years. Specific Aim 2: Determine the sensitivity, specificity, positive predictive value (PPV) and negative predictive value (NPV) of a marker panel test to identify histologically proven cancers that develop within 5-years of the marker panel evaluation. CONTACTS: During normal business hours, contact study staff at ; after hours Sales Department Clerk via the [facility] electric fork operator . Please contact study team before resolving/deleting from patients problem list. Study phone number: [phone]. Diagnosis changed due to Research Module. Go to Snapshot for study details. Encounter for examination fo r normal comparison and control in clinical research program 03/12/2018 12/16/2021 Overview (08/03/2020): DO NOT DELETE - [facility] Study: Project # [id number], Sales Department Clerk: Yonas Yates, MS, MPH. SUMMARY: Goal: Establish test characteristics (sensitivity, specificity, PPV, NPV) of a circulating tumor DNA (ctDNA)-based test for cancer. - Hypothesis: Circulating tumor DNA (ctDNA) and elevated protein biomarkers (together, the marker panel) can be detected in asymptomatic individuals with early cancer. - Specific Aim 1: Determine the prevalence of a positive marker panel test in a prospective clinical cohort of 10,000 asymptomatic women ages 65 to 75 years. - Specific Aim 2: Determine the sensitivity, specificity, positive predictive value (PPV) and negative predictive value (NPV) of a marker panel test to identify histologically proven cancers that develop within 5-years of the marker panel evaluation. - CONTACTS: During normal business hours, contact study staff at ; after hours Sales Department Clerk via the [facility] hospital electric fork operator . - Please contact study team before resolving/deleting from patients problem list. Study phone number: [phone]. Diagnosis changed due to Research Module. Go to Snapshot for study details. documented as of this encounter (statuses as of 05/09/2024) Immunizations Name Administration Dates Next Due COVID-19 mRNA, LNP-s, No Pre serve, 2-Dose Series (Moderna) 01/06/2023 COVID-19 mRNA, LNP-s, No Pre serve, 2-Dose Series (Entelo) 01/09/2021,06/01/2020,05/08/2020 COVID-19, LNP-s, No Preserve , Sandro-sucrose, Ages 12+ (Pfizer) 07/20/2021 COVID-19, MRNA-LNP, 24-25, P R, 30MCG/0.3ML, IM, 12YRS AND ABOVE (Pfizer-Comirnaty) 01/04/2024 COVID-19, MRNA-LNP, PF, 30 M CG/0.3 mL, 12 YRS AND ABOVE, IM (PFIZER-Comirnaty) 07/07/2023 COVID-19, mRNA, LNP-s, PF, B ooster, 100mcg/0.5mg (Moderna) 01/07/2023,12/24/2021 COVID-19, mRNA, LNR-S, Bival ent, PF, 10mcg/0.2 ml (Moderna) 6m to 5 years 12/24/2021 Pneumococcal Conjugate Vacc, 13 Valent (Prevnar) 02/23/2017 Pneumococcal Polysaccharide PPV23 (Pneumovax) 06/13/2018 Season Influenza, Quad, PF, Adjuvanted, 65+ Yrs, IM (FLUAD) 01/07/2020 Seasonal Influenza Virus Vac cine, Unspecified Formulation 01/21/2019 Seasonal Influenza, High Dos e, Trivalent, PF, IM (Fluzone HD) 01/31/2024 Seasonal Influenza, PF, 6 M & above, IM , (FluLaval or Fluzone) 02/01/2018 Seasonal Influenza, Quadriva lent Hd (Fluzone Hd) 01/02/2023,01/24/2022,01/04/2021 Seasonal Influenza, Trivalen t, Adjuvanted, 65+ YRS, PF, (Fluad) 01/21/2019 TDAP (age 10 and older)(Boostrix) 06/13/2018 Zoster Vaccine Recombinant (Shingrix) 09/17/2019 ,04/24/2019 documented as of this encounter Social History Tobacco Use Types Packs/Day Years Used Date Smoking Tobacco: Former Cigarettes Q uit: 04/26/1974 Smokeless Tobacco: Never Alcohol Use Standard Drinks/Week Comments Not Currently 0 (1 standard drink = 0.6 oz pur e alcohol) rare (maybe 3 drinks a year) PHQ-2 Answer Date Recorded PHQ Adult Total Score 1 01/05/2024 Hunger Vital Sign Answer Date Recorded Within the past 12 months, y ou worried that your food would run out before you got the money to buy more. Never true 05/01/19 25 Within the past 12 months, t he food you bought just didn't last and you didn't have money to get more. Never true 05/01/2024 Childcare Answer Date Recorded Do you feel overwhelmed with taking care of a child, family member or friend? No 05/01/2024 Does your family need help f inding childcare? (Household - for ages 0-17 years) Not on file 05/01/2024 Clothing Answer Date Recorded Have you been unable to get clothing when it was really needed? No 05/01/2024 Is your family able to get c lothes or diapers when needed? (Household - for ages 0-17 years) Not on file 05/01/2024 Personal Safety Answer Date Recorded Do you feel unsafe or have concerns for your saf ety? No 05/01/2024 Do you have concerns for you r family's safety? (Household - for ages 0-17 years) Not on file 05/01/2024 Utilities Answer Date Recorded Do you have trouble paying y our heating, water, or electric bill? No 05/01/2024 Is your family able to pay t he heat, water, or electric bill? (Household - for ages 0-17 years) Not on file 05/01/2024 Does your family have access to good internet? (Household - for ages 0-17 years) Not on file 05/01/2024 Employment Status Answer Date Recorded Are you unemployed or without regular income? No 05/01/2024 Does the household have a re gular source of income? (Household - for ages 0-17 years) Not on file 05/01/2024 Social Connections Answer Date Recorded How often do you feel lonely or isolated from th ose around you? Rarely 05/01/2024 Financial Resource Strain Answer Date R ecorded Do you have any trouble payi ng for your medications, or do you think you might in the future? No 05/01/2024 Does your family have troubl e paying for medicine? (Household - for ages 0-17 years) Not on file 05/01/2024 Transportation Needs Answer Date Record ed Do you have trouble getting a ride to medical visits or work? (Adult - for ages 18 years and over) Not on file 05/01/2024 Does your family have a hard time getting a ride to doctors visits? (Household - for ages 0-17 years) Not on file 05/01/2024 Has lack of transportation k ept you from medical appointments, meetings, work, or from getting things needed for daily living? Check all that apply. No 05/01/2024 Do you (or your family) have trouble finding or paying for a ride (transportation)? (Household - for ages 0-17 years) Not on file 05/01/2024 Housing Stability Answer Date Recorded Do you currently live in a s helter or have no steady place to sleep at night? No 05/01/2024 Do you think you are at risk of becoming homeless? (Adult - for ages 18 years and over) Not on file 05/01/2024 Does your family worry about paying for your home or becoming homeless? (Household - for ages 0-17 years) Not on file 0 05/01/2024 Are you homeless or worried that you might be in the future? No 05/01/2024 Are you (or your family) maris eless or worried that you might be in the future? (Household - for ages 0-17 years) Not on file Food Insecurity Answer Date Recorded Do you need food for this week? No 05/01/2024 Are you able to get enough f ood for your family? (Household - for ages 0-17 years) Not on file 05/01/2024 Does your family need food t his week? (Household - for ages 0-17 years) Not on file 05/01/2024 Do you always have enough fo od for your family? (Household - for ages 0-17 years) Not on file 05/01/2024 Comments No Sex and Gender Information Value Date Recorded Sex Assigned at Female 01/04/2021 3:18 AM EDT Legal Sex Female 6:55 AM EST Gender Identity Female 01/04/2021 3:18 AM EDT Sexual Orientation Straight 01/04/2021 3: 18 AM EDT documented as of this encounter Plan of Treatment Upcoming Encounters Date Type Department Care Team (Late st Contact Info) Description 05/28/2024 7:40 AM EST Office Visit Family Practice [facility] [address] [place] [address] Mary Kenyon DO [address] [facility] [place] [address] 06/03/2024 2:15 PM EST Office Visit Ophthalmology, [facility] [address] [place] [address] Dimitry Schneider DO [address] [place] [address] 06/19/2024 8:30 AM EST Imaging Radiology [facility] [address] [place] [id number] Scheduled Procedures Name Priority Associated Diagnoses Date/Ti me COLONOSCOPY FLEXIBLE PROXIMAL DIAGNOSTIC Recall History of colon polyps Health Maintenance Due Date Last Done Comments Cologuard 09/09/1996 Fecal Occult Blood Test 09/09/1996 Sigmoidoscopy 09/09/1996 DXA Scan 12/28/2023 12/27/2021, 12/16, 05/01/2019 COVID-19 Vaccine ( season) 2024 01/04/2024, 07/07/2023, 01/07/2023, Additional history exists Adult Wellness Visit 01/04/2025 01/05/2024, 01/02/2023, 11/24/2020 Depression Screening 01/04/2025 01/05/2024 Mammogram 02/06/2025 02/07/2024, 01/16, 02/01/2023, Additional history exists Lipid Panel 05/03/2028 05/03/2023, 04/17, 06/16/2020, Additional history exists DTap/Tdap Vaccines (2 - Td or Tdap) 06/13/2028 06/13/2018 Colonoscopy 07/14/2031 07/13/2021, 06/16, 04/05/2011 Colorectal Cancer Screening 07/14/2031 Pneumococcal Vaccine: 50+ Years Completed 06/13/2018, 02/23/2017 Zoster Vaccines Completed 09/17/2019, 04/24/2019 VITAMIN D LEVEL ONCE IN A LIFETIME-USE SMARTSET# [id number] Completed 12/24/2019, 04/27/2018 Influenza Vaccine (FLU shot) Completed , 01/02/2023, 01/24/2022, Additional history exists HPV (Gardasil) Vaccine Aged Out No lo nger eligible based on patient's age to complete this topic Hepatitis B Vaccine Aged Out No longe r eligible based on patient's age to complete this topic MENINGOCOCCAL (MENACTRA/MENVEO) Aged Out No longer eligible based on patient's age to complete this topic documented as of this encounter Medical Devices Implanted Type Area Dictaphone Operator Device Identifier Shelf Expiration Date Model / Serial / Lot Clip Quick 2.8mm 230cm - [id number] Implanted:Qty: 2 on 07/13/2021 by Tr Kim MD at [facility] [employer] [facility] 11/15/2023 [id number] / / Description:ascending colon documented as of this encounter Advance Directives Documents on File Type Date Recorded Patient Stoneworking Belt Sander Expl anation Advance Directives and Living Will 06/15/2022 ADVANCE DIRECTIVE / LIVING WILL Power of Separating Machine Operator 06/15/2022 POWER OF A TTORNEY Care Teams Elastic Attacher Chainstitch Relationship Specialty Start Date End Date Mary Kenyon DO [address] [place] [address] PCP - General Family Medicine 11/27/17 documented as of this encounter
--- OUTSIDE RECORDS SUMMARY | 2024-07-15 20:40 | External Medical Summary | Summary of Care ---
Author Name Unknown Organization [facility] Address [address] [facility] [place] [address] Phone [phone] Care Team Providers Care Chief Safety Officer Name Role Phone Mary Kenyon DO Primary Care Provider Encounter Details Date Type Department Care Team (Late st Contact Info) Description 07/15/2024 Orders Only Outcomes Research Department [address], [place] [id number] Loree Spicer CHRA MyCode Research Other*[id number] Allergies Active Allergy Reactions Criticality Noted Date Comments Amoxicillin 06/27/2023 Other Reaction(s): rash Penicillins Hives 04/26/2018 documented as of this encounter (statuses as of 07/15/2024) Medications Multiple Vitamins-Mineral s (MULTIVITAMIN ADULT) TABSIndications: [...] by mouth 2 times a day. Active Penciclovir 1 % External Cream (Denavir) Apply 1 Application topically to affected area every 2 hours while awake. Apply to shingles lesions as needed for outbreak 1.5 g 1 4 Active valACYclovir HCl 1 GM Oral Tablet (Valtrex) Take 0.5 Tablets by mouth in the morning and 0.5 Tablets before bedtime. For HSV outbreak. 20 Tablet 1 4 Active LORazepam 0.5 MG Oral Tablet (Ativan)Indicati ons:Primary insomnia Take 0.5 Tablets by mouth daily as needed for Insomnia. 30 Tablet 1 4 Active Simbrinza 1-0.2 % Ophthalmic Suspension (Brinzolamide-Br imonidine) Instill into eye. Active Rosuvastatin Calcium 5 MG Oral Tablet (Crestor) Take 1 Tablet by mouth in the morning. 90 Tablet 3 5 Active Alendronate Sodium 70 MG Oral Tablet (Fosamax)Indicat ions:Age-related osteoporosis without current pathological fracture TAKE 1 TABLET BY MOUTH ONCE WEEKLY FIRST THING IN THE MORNING ON AN EMPTY STOMACH WITH 8 OUNCES OF WATER WAIT 30 MINUTES BEFORE EATING, DRINKING OR TAKING OTHER MEDICATIONS 12 Tablet 3 5 Active Eszopiclone 2 MG Oral TabletIndication s:Primary insomnia Take 1 Tablet by mouth at bedtime as needed for Sleep. 30 Tablet 1 5 Active Hospital, Clinic, or Other Facility [...] as of this encounter (statuses as of 07/15/2024) Active Problems Problem Noted Date Diagnosed Date History of basal cell carcinoma (BCC) 05/28/2024 Hyperlipidemia with target LDL less than 100 03/2024 Exudative age-related macula r degeneration of left eye with active choroidal neovascularization 04/25/2022 Primary open angle glaucoma 04/25/2022 Persistent insomnia 04/07/2020 Postmenopausal atrophic vaginitis 04/07/2020 Age related osteoporosis 04/07/2020 BMI less than 19,adult 04/07/2020 documented as of this encounter (statuses as of 07/15/2024) Resolved Problems Problem Noted Date Diagnosed Date Resolved Date Exudative age-related macula r degeneration of left eye with active choroidal neovascularization 04/25/2022 05/28/2024 Basal cell carcinoma (BCC) of ala nasi 04/26/2018 05/28/2024 Encounter for examination fo r normal comparison and control in clinical research program 03/12/2018 11/18/2019 Overview (08/03/2020): DO NOT DELETE [facility] DETECT Study: Project # [id number], [employer]le[employer] Technical Operator: Beltran Gann, PhD. SUMMARY: Goal: Establish test [...] contact study staff at ; after hours Radiotelephone Technical Operator via the [facility] electric tripper machine operator . Please contact study team before resolving/deleting from patients problem list. Study phone number: [phone]. Diagnosis changed due to Research Module. Go to [employer] for study details. Encounter for examination fo r normal comparison and control in clinical research program 03/12/2018 12/16/2021 Overview (08/03/2020): DO NOT DELETE - [facility] DETECT Study: Project # [id number], [employer]le[employer] Technical Operator: Yonas Yates, MS, MPH. SUMMARY: Goal: Establish [...] contact study staff at ; after hours Radiotelephone Technical Operator via the [facility] hospital electric tripper machine operator . - Please contact study team before resolving/deleting from patients problem list. Study phone number: [phone]. Diagnosis changed due to Research Module. Go to [employer] for study details. documented as of this encounter (statuses as of 07/15/2024) Immunizations Name Administration Dates Next Due COVID-19 mRNA, LNP-s, No Pre serve, 2-Dose Series (Moderna) 01/06/2023 COVID-19 mRNA, LNP-s, No Pre serve, 2-Dose Series (Pfizer) 01/09/2021,06/01/2020,05/08/2020 COVID-19, LNP-s, No Preserve , Sandro-sucrose, Ages 12+ (Pfizer) 07/20/2021 COVID-19, MRNA-LNP, 24-25, P R, 30MCG/0.3ML, IM, 12YRS AND ABOVE ([facility]) 01/04/2024 COVID-19, MRNA-LNP, PF, 30 M CG/0.3 mL, 12 YRS AND ABOVE, IM ([facility]) 07/07/2023 COVID-19, mRNA, LNP-s, PF, B ooster, [...] ages 0-17 years) Not on file 05/01/2024 Food Insecurity Answer Date Recorded Within the past 12 months, y ou worried that your food would run out before you got the money to buy more. Never true 05/01/19 25 Within the past 12 months, t he food you bought just didn't last and you didn't have money to get more. Never true 05/01/2024 Do you need food for this week? No 05/01/2024 Comments No Sex and Gender Information Value Date Recorded Sex Assigned at Female 01/04/2021 3:18 AM EDT Legal Sex Female 6:55 AM EST Gender Identity Female 01/04/2021 3:18 AM EDT Sexual Orientation Straight 01/04/2021 3: 18 AM EDT documented as of this encounter Plan of Treatment Upcoming Encounters Date Type Department Care Team (Late st Contact Info) Description 07/23/2024 8:15 AM EDT Office Visit Ophthalmology, [facility] [address] [place] [id number] Dimitry Schneider, DO [address] [place] [address] 05/30/2025 7:20 AM EST Office Visit Family Practice [facility] [address] [facility] [place] [address] Mary Kenyon, DO [address] [facility] [place] [address] Scheduled Orders Name Type Priority Associated Diagnoses Orde r Schedule MYCODE SUBSEQUENT ADULT Lab Routine MyCode Research Other*[id number] Every 6 Months for 2 Occurrences starting 07/15/2024 until 08/04/2025 Scheduled Procedures Name Priority Associated Diagnoses Date/Ti me COLONOSCOPY FLEXIBLE PROXIMAL DIAGNOSTIC Recall History of colon polyps Health Maintenance Due Date Last Done Comments Cologuard 09/09/1996 Fecal Occult Blood Test 09/09/1996 Sigmoidoscopy 09/09/1996 COVID-19 Vaccine ( season) 2024 01/04/2024, 07/07/2023, 01/07/2023, Additional history exists Adult Wellness Visit 01/04/2025 01/05/2024, 01/02/2023, 11/24/2020 Depression Screening 01/04/2025 01/05/2024 Mammogram 02/06/2025 02/07/2024, 01/16, 02/01/2023, Additional history exists DXA Scan 06/19/2026 06/19/2024, 12/16, 12/27/2021, Additional history exists DTap/Tdap Vaccines (2 - Td or Tdap) 06/13/2028 06/13/2018 Lipid Panel 05/29/2029 05/29/2024, 04/17, 04/26/2022, Additional history exists Colonoscopy 07/14/2031 07/13/2021, 06/16, 04/05/2011 Colorectal Cancer Screening 07/14/2031 Pneumococcal Vaccine: 50+ Years Completed 06/13/2018, 02/23/2017 Zoster Vaccines Completed 09/17/2019, 04/24/2019 VITAMIN D LEVEL ONCE IN A LIFETIME-USE SMARTSET# [id number] Completed 12/24/2019, 04/27/2018 Influenza Vaccine (FLU shot) Completed , 01/02/2023, 01/24/2022, Additional history exists HPV (Gardasil) Vaccine Aged Out No lo nger eligible based on patient's age to complete this topic Hepatitis B Vaccine Aged Out No longe r eligible based on patient's age to complete this topic MENINGOCOCCAL (MENACTRA/MENVEO) Aged Out No longer eligible based on patient's age to complete this topic Meningitis B Vaccine (Bexsero/Trumemba) Aged Out No longer eligible based on patient's age to complete this topic documented as of this encounter Medical Devices Implanted Type Area Wet Char Conveyor Tender Device Identifier Shelf Expiration Date Model / Serial / Lot Clip Quick 2.8mm 230cm - [id number] Implanted:Qty: 2 on 07/13/2021 by Tr Kim MD at ENDOSCOPY [facility] 11/15/2023 -[id number] / / Description:ascending colon documented as of this encounter Visit Diagnoses Diagnosis MyCode Research Other*[id number] documented in this encounter Advance Directives Documents on File Type Date Recorded Patient Neon Sign Worker Expl anation Advance Directives and Living Will 06/15/2022 ADVANCE DIRECTIVE / LIVING WILL Power of Turbine Assembler 06/15/2022 POWER OF A TTORNEY Care Teams Chief Safety Officer Relationship Specialty Start Date End Date Mary Kenyon DO [address] [place] [address] PCP - General Family Medicine 11/27/17 documented as of this encounter
--- OUTSIDE RECORDS SUMMARY | 2024-07-15 20:40 | External Medical Summary | Summary of Care ---
Author Name Unknown Organization [facility] Address [address] [place] [address] Phone [phone] Care Team Providers Care Assembly Worker Name Role Phone Mary Kenyon DO Primary Care Provider Reason for Visit * Reason Comments eRx-Medication Refill Encounter Details Date Type Department Care Team (Late st Contact Info) Description 04/20/2024 Refill Family Practice [facility] [address] [facility] [place] [address] Mary Kenyon DO [address] [facility] [place] [address] Allergies Active Allergy Reactions Criticality Noted Date Comments Amoxicillin 06/27/2023 Other Reaction(s): rash Penicillins Hives 04/26/2018 documented as of this encounter (statuses as of 04/22/2024) Medications Multiple Vitamins-Mineral s (MULTIVITAMIN ADULT) TABSIndications: [...] for Insomnia. 30 Tablet 1 4 Active Rosuvastatin Calcium 5 MG Oral Tablet (Crestor) TAKE 1 TABLET BY MOUTH EVERY DAY IN THE MORNING 30 Tablet 1 4 Active Simbrinza 1-0.2 % Ophthalmic Suspension (Brinzolamide-Br imonidine) Instill into eye. Active Hospital, Clinic, or Other Facility Administered [...] as of this encounter (statuses as of 04/22/2024) Active Problems Problem Noted Date Diagnosed Date [...] as of this encounter (statuses as of 04/22/2024) Resolved Problems Problem Noted Date Diagnosed Date Resolved Date Encounter for examination fo r normal comparison and control in clinical research program 03/12/2018 11/18/2019 Overview (08/03/2020): DO NOT DELETE [facility] DETECT Study: Project # [id number], [employer] Executive Director: Beltran Gann, PhD. SUMMARY: Goal: Establish test [...] contact study staff at ; after hours [employer] Executive Director via the [facility] arc welding machine operator . Please contact study team before resolving/deleting from patients problem list. Study phone number: [phone]. Diagnosis changed due to Research Module. Go to [employer] for study details. Encounter for examination fo r normal comparison and control in clinical research program 03/12/2018 12/16/2021 Overview (08/03/2020): DO NOT DELETE - [facility] [place] Study: Project # [id number], [employer] Executive Director: Yonas Yates, MS, MPH. SUMMARY: Goal: Establish [...] contact study staff at ; after hours [employer] Executive Director via the [facility] arc welding machine operator . - Please contact study team before resolving/deleting from patients problem list. Study phone number: [phone]. Diagnosis changed due to Research Module. Go to [employer] for study details. documented as of this encounter (statuses as of 04/22/2024) Immunizations Name Administration Dates Next Due COVID-19 mRNA, LNP-s, No Pre serve, 2-Dose Series (Moderna) 01/06/2023 COVID-19 mRNA, LNP-s, No Pre serve, 2-Dose Series (Pfizer) 01/09/2021,06/01/2020,05/08/2020 COVID-19, LNP-s, No Preserve , Sandro-sucrose, Ages 12+ (Pfizer) 07/20/2021 COVID-19, MRNA-LNP, 24-25, P R, 30MCG/0.3ML, IM, 12YRS AND ABOVE ([facility]) 01/04/2024 COVID-19, MRNA-LNP, PF, 30 M CG/0.3 mL, 12 YRS AND ABOVE, IM ([facility]) 07/07/2023 COVID-19, mRNA, LNP-s, PF, B ooster, [...] the money to buy more. Never true 12/27/19 23 Within the past 12 months, t he food you bought just didn't last and you didn't have money to get more. Never true 12/26/2022 Childcare Answer Date Recorded Do you feel overwhelmed with taking care of a child, family member or friend? No 12/26/2022 Does your family need help f inding childcare? (Household - for ages 0-17 years) Not on file 12/26/2022 Clothing Answer Date Recorded Have you been unable to get clothing when it was really needed? No 12/26/2022 Is your family able to get c lothes or diapers when needed? (Household - for ages 0-17 years) Not on file 12/26/2022 Personal Safety Answer Date Recorded Do you feel unsafe or have concerns for your saf ety? No 12/26/2022 Do you have concerns for you r family's safety? (Household - for ages 0-17 years) Not on file 12/26/2022 Utilities Answer Date Recorded Do you have trouble paying y our heating, water, or electric bill? No 12/26/2022 Is your family able to pay t he heat, water, or electric bill? (Household - for ages 0-17 years) Not on file 12/26/2022 Does your family have access to good internet? (Household - for ages 0-17 years) Not on file 12/26/2022 Employment Status Answer Date Recorded Are you unemployed or without regular income? No 12/26/2022 Does the household have a re gular source of income? (Household - for ages 0-17 years) Not on file 12/26/2022 Social Connections Answer Date Recorded How often do you feel lonely or isolated from th ose around you? Rarely 12/26/2022 Financial Resource Strain Answer Date R ecorded Do you have any trouble payi ng for your medications, or do you think you might in the future? No 12/26/2022 Does your family have troubl e paying for medicine? (Household - for ages 0-17 years) Not on file 12/26/2022 Transportation Needs Answer Date Record ed READ ONLY Do you have troubl e getting a ride to medical visits or work? Never True 12/26/2022 Does your family have a hard time getting a ride to doctors visits? (Household - for ages 0-17 years) Not on file 12/26/2022 Has lack of transportation k ept you from medical appointments, meetings, work, or from getting things needed for daily living? Check all that apply. (Adult - for ages 18 years and over) Not on file 12/26/2022 Do you (or your family) have trouble finding or paying for a ride (transportation)? (Household - for ages 0-17 years) Not on file 12/26/2022 Housing Stability Answer Date Recorded Do you currently live in a s helter or have no steady place to sleep at night? No 12/26/2022 READ ONLY Do you think you a re at risk of becoming homeless? No 12/26/2022 Does your family worry about paying for your home or becoming homeless? (Household - for ages 0-17 years) Not on file 0 12/26/2022 Are you homeless or worried that you might be in the future? (Adult - for ages 18 years and over) Not on file Are you (or your family) maris eless or worried that you might be in the future? (Household - for ages 0-17 years) Not on file Food Insecurity Answer Date Recorded Do you need food for this week? No 12/26/2022 Are you able to get enough f ood for your family? (Household - for ages 0-17 years) Not on file 12/26/2022 Does your family need food t his week? (Household - for ages 0-17 years) Not on file 12/26/2022 Do you always have enough fo od for your family? (Household - for ages 0-17 years) Not on file 12/26/2022 Comments No Sex and Gender Information Value Date Recorded Sex Assigned at Female 01/04/2021 3:18 AM EDT Legal Sex Female 6:55 AM EST Gender Identity Female 01/04/2021 3:18 AM EDT Sexual Orientation Straight 01/04/2021 3: 18 AM EDT documented as of this encounter Miscellaneous Notes * Telephone Encounter - Adri Lloyd NA - 04/22/2024 12:13 PM ESTRefused Prescriptions: Disp Refills Rosuvastatin Calcium 5 MG Oral Tablet [Pha*30 Tab*1 Sig: TAKE 1TABLET BY MOUTH EVERY DAY IN THE MORNINGRefused By: JOS LLOYDeason for Refusal: Duplicate Request documented in this encounter Plan of Treatment Upcoming Encounters Date Type Department Care Team (Late st Contact Info) Description 06/19/2024 8:30 AM EST Imaging Radiology [facility] [address] [place] [address] Scheduled Procedures Name Priority Associated Diagnoses Date/Ti [...] D LEVEL ONCE IN A LIFETIME-USE SMARTSET# [id number] Completed 12/24/2019, 04/27/2018 Influenza Vaccine (FLU shot) [...] this encounter Medical Devices Implanted Type Area Slice Cutting Machine Operator Helper Device Identifier Shelf Expiration Date Model / Serial / Lot Clip Quick 2.8mm 230cm - [id number] Implanted:Qty: 2 on 07/13/2021 by Tr Kim MD at ENDOSCOPY [facility] [employer] 11/15/2023 [id number] / / Description:ascending colon documented as of this encounter Advance Directives Documents on File Type Date Recorded Patient Wet Wash Assembler Expl anation Advance Directives and Living Will 06/15/2022 ADVANCE DIRECTIVE / LIVING WILL Power of Animal Laboratory Helper 06/15/2022 POWER OF A TTORNEY Care Teams Assembly Worker Relationship Specialty Start Date End Date Mary Kenyon DO [address] [place] [address] PCP - General Family Medicine 11/27/17 documented as of this encounter
--- OUTSIDE RECORDS SUMMARY | 2024-07-15 20:40 | External Medical Summary | Summary of Care ---
Author Name Unknown Organization [facility] Address [address] [facility] [address] Phone [phone] Care Team Providers Care Hand Sizer Name Role Phone Mary Kenyon DO Primary Care Provider Encounter Details Date Type Department Care Team (Late st Contact Info) Description 06/04/2024 Orders Only Family Practice [facility] [address] [facility] [place] [address] Mary Kenyon DO [address] [facility] [place] [address] Allergies Active Allergy Reactions Criticality Noted Date Comments Amoxicillin 06/27/2023 Other Reaction(s): rash Penicillins Hives 04/26/2018 documented as of this encounter (statuses as of 06/04/2024) Medications Multiple Vitamins-Mineral s (MULTIVITAMIN ADULT) TABSIndications: [...] as of this encounter (statuses as of 06/04/2024) Active Problems Problem Noted Date Diagnosed Date [...] as of this encounter (statuses as of 06/04/2024) Resolved Problems Problem Noted Date Diagnosed Date Resolved Date Exudative age-related macula r degeneration of left eye with active choroidal neovascularization 04/25/2022 05/28/2024 Basal cell carcinoma (BCC) of ala nasi 04/26/2018 05/28/2024 Encounter for examination fo r normal comparison and control in clinical research program 03/12/2018 11/18/2019 Overview (08/03/2020): DO NOT DELETE [facility] DETECT Study: Project # [id number], Administrative Support Technician: Beltran Gann, PhD. SUMMARY: Goal: Establish test [...] contact study staff at ; after hours Administrative Support Technician via the [facility] double cut off saw operator . Please contact study team before resolving/deleting from patients problem list. Study phone number: [phone]. Diagnosis changed due to Research Module. Go to [employer] for study details. Encounter for examination fo r normal comparison and control in clinical research program 03/12/2018 12/16/2021 Overview (08/03/2020): DO NOT DELETE - [facility] Study: Project # [id number], Administrative Support Technician: Yonas Yates, MS, MPH. SUMMARY: Goal: Establish [...] contact study staff at ; after hours Administrative Support Technician via the [facility] double cut off saw operator . - Please contact study team before resolving/deleting from patients problem list. Study phone number: [phone]. Diagnosis changed due to Research Module. Go to [employer] for study details. documented as of this encounter (statuses as of 06/04/2024) Immunizations Name Administration Dates Next Due COVID-19 mRNA, LNP-s, No Pre serve, 2-Dose Series (Moderna) 01/06/2023 COVID-19 mRNA, LNP-s, No Pre serve, 2-Dose Series (Pfizer) 01/09/2021,06/01/2020,05/08/2020 COVID-19, LNP-s, No Preserve , Sandro-sucrose, Ages 12+ (Pfizer) 07/20/2021 COVID-19, MRNA-LNP, 24-25, P R, 30MCG/0.3ML, IM, 12YRS AND ABOVE ([facility]) 01/04/2024 COVID-19, MRNA-LNP, PF, 30 M CG/0.3 mL, 12 YRS AND ABOVE, IM ([facility]) 07/07/2023 COVID-19, mRNA, LNP-s, PF, B ooster, [...] No 05/01/2024 Does the household have a [facility] source of income? (Household - for ages [...] Description 06/19/2024 8:30 AM EST Imaging Radiology [facility] [address] [place] [phone] 07/23/2024 8:15 AM EDT Office Visit Ophthalmology, [facility] [address] [place] [address] Dimitry Schneider, DO [address] [place] [address] 05/30/2025 7:20 AM EST Office Visit Family Practice [facility] [address] [facility] [place] [address] Mary Kenyon, DO [address] [facility] [place] [address] Scheduled Procedures Name Priority Associated Diagnoses Date/Ti [...] 02/06/2025 02/07/2024, 01/16, 02/01/2023, Additional history exists DTap/Tdap Vaccines (2 - Td or Tdap) 06/13/2028 06/13/2018 Lipid Panel 05/29/2029 05/29/2024, 04/17, 04/26/2022, Additional history exists Colonoscopy 07/14/2031 07/13/2021, 06/16, 04/05/2011 Colorectal Cancer Screening 07/14/2031 Pneumococcal Vaccine: 50+ Years Completed 06/13/2018, 02/23/2017 Zoster Vaccines Completed 09/17/2019, 04/24/2019 VITAMIN D LEVEL ONCE IN A LIFETIME-USE SMARTSET# [id number] Completed 12/24/2019, 04/27/2018 Influenza Vaccine (FLU shot) [...] this encounter Medical Devices Implanted Type Area Stone Repairer Device Identifier Shelf Expiration Date Model / Serial / Lot Clip Quick 2.8mm 230cm - [id number] Implanted:Qty: 2 on 07/13/2021 by Tr Kim MD at ENDOSCOPY [facility] [facility] 11/15/2023 [id number] / / Description:ascending colon documented as of this encounter Procedures Procedure Name Priority Date/Time Associated Diagnosis Comments CHEMISTRY-OUTSIDE Routine 05/29/2024 documented in this encounter Results * (ABNORMAL) CHEMISTRY-OUTSIDE (05/29/2024) Not all results display below - see scan for full detail OUTSIDE LAB (SEE SCANNED REPORT) Comment:SCAN INCL: LIPIDS, A POLIPOPROTEIN B,CMP,LIPOPROTEIN CREATININE 0.57(A) 0.60 - 1.00 MG/DL OUTSIDE LAB (SEE SCANNED REPORT) EGFR 96 OUTSIDE LA B (SEE SCANNED REPORT) POTASSIUM 4.3 3.5 - 5.3 MMOL/L OUTSIDE LAB (SEE SCANNED REPORT) GLUCOSE 91 65 - 99 MG/DL OUTSIDE LAB (SEE SCANNED REPORT) HOURS FASTING OUTSID E LAB (SEE SCANNED REPORT) TRIGLYCERIDES-OUTS CHRISSY LAB 85 <150 MG/DL OUTSIDE LAB (SEE SCANNED REPORT) CHOLESTEROL-OUTSID E LAB 172 <200 MG/DL OUTSIDE LAB (SEE SCANNED REPORT) HDL-OUTSIDE LAB 65 OUTS CHRISSY LAB (SEE SCANNED REPORT) CHOL/HDL RATIO-OUTSIDE LAB 2.6 OUTSIDE LA B (SEE SCANNED REPORT) LDL (CALCULATED)-OUTSI DE LAB 89 <100 MG/DL OUTSIDE LAB (SEE SCANNED REPORT) LDL (DIRECT MEASURE)-OUTSIDE LAB OUTSIDE LAB (SEE SCANNED REPORT) HEMOGLOBIN, G1C-QNGBSMU LAB OUTSIDE LAB (SEE SCANNED REPORT) PHOSPHORUS-OUTSIDE LAB OUTSIDE LAB (SEE SCANNED REPORT) PTH-OUTSIDE LAB OUTS CHRISSY LAB (SEE SCANNED REPORT) MICROALBUMIN RATIO-OUTSIDE LAB OUTSIDE LA B (SEE SCANNED REPORT) PROTEIN, UA-OUTSIDE LAB OUTSIDE LAB (SEE SCANNED REPORT) HGB OUTSIDE LA B (SEE SCANNED REPORT) 05/29/2024 us Mary Kenyon DO LABORATORY Final R esult OUTSIDE LAB (SEE SCANNED REPORT) documented in this encounter Advance Directives Documents on File Type Date Recorded Patient Retail Special Event Associate Expl anation Advance Directives and Living Will 06/15/2022 ADVANCE DIRECTIVE / LIVING WILL Power of Court Recording Monitor 06/15/2022 POWER OF A TTORNEY Care Teams Hand Sizer Relationship Specialty Start Date End Date Mary Kenyon DO [address] [place] [address] PCP - General Family Medicine 11/27/17 documented as of this encounter
--- OUTSIDE RECORDS SUMMARY | 2024-07-15 20:40 | External Medical Summary | Summary of Care ---
Author Name Unknown Organization [facility] [address] [facility] [address] Phone [phone] Care Team Providers Care Spray Gunner Name Role Phone Mary Kenyon DO Primary Care Provider Encounter Details Date Type Department Care Team (Late st Contact Info) Description 05/30/2024 Orders Only PATIENT PORTAL DO NOT DELETE THIS DEPT USED BY DANIEL MARTINEZ [id number] Allergies Active Allergy Reactions Criticality Noted Date Comments Amoxicillin 06/27/2023 Other Reaction(s): rash Penicillins Hives 04/26/2018 documented as of this encounter (statuses as of 05/30/2024) Medications Multiple Vitamins-Mineral s (MULTIVITAMIN ADULT) TABSIndications: [...] as of this encounter (statuses as of 05/30/2024) Active Problems Problem Noted Date Diagnosed Date [...] as of this encounter (statuses as of 05/30/2024) Resolved Problems Problem Noted Date Diagnosed Date Resolved Date Exudative age-related macula r degeneration of left eye with active choroidal neovascularization 04/25/2022 05/28/2024 Basal cell carcinoma (BCC) of ala nasi 04/26/2018 05/28/2024 Encounter for examination fo r normal comparison and control in clinical research program 03/12/2018 11/18/2019 Overview (08/03/2020): DO NOT DELETE [facility] DETECT Study: Project # [id number], Cheese Cooker: Beltran Gann, PhD. SUMMARY: Goal: Establish test [...] contact study staff at ; after hours Cheese Cooker via the [facility] quick print operator . Please contact study team before resolving/deleting from patients problem list. Study phone number: [phone]. Diagnosis changed due to Research Module. Go to Snapshot for study details. Encounter for examination fo r normal comparison and control in clinical research program 03/12/2018 12/16/2021 Overview (08/03/2020): DO NOT DELETE - [facility] DETECT Study: Project # [id number], Cheese Cooker: Yonas Yates, MS, MPH. SUMMARY: Goal: Establish [...] contact study staff at ; after hours Cheese Cooker via the [facility] quick print operator . - Please contact study team before resolving/deleting from patients problem list. Study phone number: [phone]. Diagnosis changed due to Research Module. Go to Snapshot for study details. documented as of this encounter (statuses as of 05/30/2024) Immunizations Name Administration Dates Next Due COVID-19 mRNA, LNP-s, No Pre serve, 2-Dose Series (Moderna) 01/06/2023 COVID-19 mRNA, LNP-s, No Pre serve, 2-Dose Series (Pfizer) 01/09/2021,06/01/2020,05/08/2020 COVID-19, LNP-s, No Preserve , Sandro-sucrose, Ages 12+ (Pfizer) 07/20/2021 COVID-19, MRNA-LNP, 24-25, P R, 30MCG/0.3ML, IM, 12YRS AND ABOVE ([employer]-ComirnatHuman[employer]ric Performance) 01/04/2024 COVID-19, MRNA-LNP, PF, 30 M CG/0.3 mL, 12 YRS AND ABOVE, IM ([employer]-Comirnaty) 07/07/2023 COVID-19, mRNA, LNP-s, PF, B ooster, [...] Care Team (Late st Contact Info) Description 06/03/2024 2:15 PM EST Office Visit Ophthalmology, [facility] [address] [place] [phone] Dimitry Schneider, DO [address] [place] [address] 06/19/2024 8:30 AM EST Imaging Radiology [facility] [address] [place] [phone] 05/30/2025 7:20 AM EST Office Visit [facility] [address] [facility] [place] [address] Mary Kenyon, [address] [facility] [place] [address] Scheduled Procedures Name Priority Associated Diagnoses Date/Ti [...] D LEVEL ONCE IN A LIFETIME-USE SMARTSET# [id number] Completed 12/24/2019, 04/27/2018 Influenza Vaccine (FLU shot) [...] this encounter Medical Devices Implanted Type Area Dry Cleaning Checker Device Identifier Shelf Expiration Date Model / Serial / Lot Clip Quick 2.8mm 230cm - [id number] Implanted:Qty: 2 on 07/13/2021 by Tr Kim MD at ENDOSCOPY [facility] [employer] 11/15/2023 [id number] / / Description:ascending colon documented as of this encounter Advance Directives Documents on File Type Date Recorded Patient Long Term Acute Care Registered Nurse Expl anation Advance Directives and Living Will 06/15/2022 ADVANCE DIRECTIVE / LIVING WILL Power of Warehouse Logistics Coordinator 06/15/2022 POWER OF A TTORNEY Care Teams Spray Gunner Relationship Specialty Start Date End Date Mary Kenyon DO [address] [place] [address] PCP - General Family Medicine 11/27/17 documented as of this encounter
--- OUTSIDE RECORDS SUMMARY | 2024-07-15 20:40 | External Medical Summary | Summary of Care ---
Author Name Unknown Organization [facility] Address [address] [place] [place] [place] [address] Phone [phone] Care Team Providers Care Estate Planning Counselor Name Role Phone Mary Kenyon DO Primary Care Provider Reason for Visit * Reason Comments Physical-Exam Encounter Details Date Type Department Care Team (Latest Contact Info) Description 05/28/2024 7:40 AM EST Office Visit Family [facility] [place] [address] [facility] [place] [address] Mary Kenyon DO [address] [facility] [place] [address] Age-related osteoporosis without current pathological fracture*; Exudative age-related macular degeneration of left eye with active choroidal neovascularization (HCC); Hyperlipidemia with target LDL less than 100; Persistent insomnia; Primary open angle glaucoma (POAG) of both eyes, moderate stage; Postmenopausal atrophic vaginitis; History of basal cell carcinoma (BCC) Allergies Active Allergy Reactions Criticality Noted Date Comments Amoxicillin 06/27/2023 Other Reaction(s): rash Penicillins Hives 04/26/2018 documented as of this encounter (statuses as of 05/28/2024) Medications Multiple Vitamins-Mineral s (MULTIVITAMIN ADULT) TABSIndications: [...] at bedtime . 1 drop both eyes 09/27/19 19 Active Brimonidine Tartrate 0.15 % Ophthalmic Solution [...] as needed for Sleep. 30 Tablet 1 09/18/19 24 Active Alendronate Sodium 70 MG Oral Tablet (Fosamax)Indicat ions:Age-related osteoporosis without current pathological fracture TAKE 1 TABLET BY MOUTH ONCE WEEKLY FIRST THING IN THE MORNING ON AN EMPTY STOMACH WITH 8 OUNCES OF WATER WAIT 30 MINUTES BEFORE EATING, DRINKING OR TAKING OTHER MEDICATIONS 12 Tablet 2 10/23/19 24 Active Penciclovir 1 % External Cream (Denavir) Apply 1 Application topically to affected area every 2 hours while awake. Apply to shingles lesions as needed for outbreak 1.5 g 1 01/05/20 24 Active valACYclovir HCl 1 GM Oral Tablet (Valtrex) Take 0.5 Tablets by mouth in the morning and 0.5 Tablets before bedtime. For HSV outbreak. 20 Tablet 1 01/05/20 24 Active LORazepam 0.5 MG Oral Tablet (Ativan)Indicati ons:Primary insomnia Take 0.5 Tablets by mouth daily as needed for Insomnia. 30 Tablet 1 03/06/20 24 Active Simbrinza 1-0.2 % Ophthalmic Suspension (Brinzolamide-Br imonidine) Instill into eye. Active Rosuvastatin Calcium 5 MG Oral Tablet (Crestor) Take 1 Tablet by mouth in the morning. 90 Tablet 3 04/23/19 25 Active Lisinopril 10 MG Oral Tablet (Prinivil) Take 1 Tablet by mouth in the morning. 90 Tablet 1 01/13/20 24 025 Discontin ued(Medic ation List Clean Up) Hospital, Clinic, or Other Facility Administered Medication [...] as of this encounter (statuses as of 05/28/2024) Active Problems Problem Noted Date Diagnosed Date [...] as of this encounter (statuses as of 05/28/2024) Resolved Problems Problem Noted Date Diagnosed Date Resolved Date Exudative age-related macula r degeneration of left eye with active choroidal neovascularization 04/25/2022 05/28/2024 Basal cell carcinoma (BCC) of ala nasi 04/26/2018 05/28/2024 Encounter for examination fo r normal comparison and control in clinical research program 03/12/2018 11/18/2019 Overview (08/03/2020): DO NOT DELETE [facility] DETECT Study: Project # [id number], Researcher: Beltran Gann, PhD. SUMMARY: Goal: Establish test [...] contact study staff at ; after hours Researcher via the [facility] web press operator assistant . Please contact study team before resolving/deleting from patients problem list. Study phone number: [phone]. Diagnosis changed due to Research Module. Go to Snapshot for study details. Encounter for examination fo r normal comparison and control in clinical research program 03/12/2018 12/16/2021 Overview (08/03/2020): DO NOT DELETE - [facility] DETECT Study: Project # [id number], Researcher: Yonas Yates, MS, MPH. SUMMARY: Goal: Establish [...] contact study staff at ; after hours Researcher via the [facility] web press operator assistant . - Please contact study team before resolving/deleting from patients problem list. Study phone number: [phone]. Diagnosis changed due to Research Module. Go to Snapshot for study details. documented as of this encounter (statuses as of 05/28/2024) Immunizations Name Administration Dates Next Due COVID-19 mRNA, LNP-s, No Pre serve, 2-Dose Series (Moderna) 01/06/2023 COVID-19 mRNA, LNP-s, No Pre serve, 2-Dose Series (Pfizer) 01/09/2021,06/01/2020,05/08/2020 COVID-19, LNP-s, No Preserve , Sandro-sucrose, Ages 12+ (Pfizer) 07/20/2021 COVID-19, MRNA-LNP, 24-25, P R, 30MCG/0.3ML, IM, 12YRS AND ABOVE ([employer]-Comirnaty) 01/04/2024 COVID-19, MRNA-LNP, PF, 30 M CG/0.3 mL, 12 YRS AND ABOVE, IM ([employer]-Comirnaty) 07/07/2023 COVID-19, mRNA, LNP-s, PF, B ooster, [...] money to buy more. Never true 05/01/19 Within the past 12 months, t he [...] AM EDT documented as of this encounter Last Filed Vital Signs Vital Sign Reading Time Taken Comments Blood Pressure 124/76 05/28/2024 7:50 AM EST Pulse 66 05/28/2024 7:50 AM EST Temperature 35.7 C (96.3 F) 05/28/2024 7:50 AM ES T Respiratory Rate 16 05/28/2024 7:50 AM EST Oxygen Saturation 100% 05/28/2024 7:50 AM EST Inhaled Oxygen Concentration - - Weight 52.8 kg (116 lb 6.4 oz) 05/28/2024 7:50 A M EST Height 168 cm (5' 6.14") 05/28/2024 7:50 AM EST Body Mass Index 18.71 05/28/2024 7:50 AM EST documented in this encounter Progress Notes * Mary Kenyon, - 05/28/2024 7:56 AM EST Images from the original note were not included. Subjective Joyce Parker is a 73 year old female that presents for Physical-Exam Patient's past medical, surgical, family, and social history were reviewed. Medications, allergies, immunizations, and health care maintenance screenings were also reviewed. History of Present Illness Joyce Parker is a 73 year old female with hypertension who presents with concerns about blood pressure management. She initially started blood pressure medication after experiencing lightheadedness and a treadmill test that was stopped due to her blood pressure reaching 230/90 mmHg. She recalls feeling unwell with a heavy cold following the test, which may have contributed to the elevated readings. Currently, she does not experience lightheadedness or dizziness when standing, except during episodes of low blood pressure readings. Initially, she was on 10 mg of lisinopril, which was reduced to 5 mg after a Medicare wellness check suggested the higher dose might be excessive. She monitors her blood pressure at home using an Omron cuff. On 10 mg, her readings were stable, but after reducing to 5 mg, she experienced occasional low readings, such as 'seventy something over fifty or forty something', particularly at night whilerelaxing. She stopped the medication at the end of April to observe her blood pressure without it, noting it was 'sort of normal' but would occasionally drop when sitting down. She resumed the medication upon returning from a trip. Her blood pressure is 'really salt sensitive', and she has been consuming more salt while on medication, assuming it would not affect her due to the medication. She is conscious of her hydration and exercise, attending the gym three times a week, where she rides a bike and uses a treadmill. Her family history includes a younger sister with severe heart disease and multiple coronary arteryblockages, attributed to genetic factors, and a sister with Meniere's disease and recent meningitis. Her mother had rheumatoid arthritis and lupus, and her father had glaucoma. Objective Vitals: 05/28/24 0750 Temp: 96.3 F (35.7 C) Pulse: 66 Resp: 16 SpO2: 100% BP: 124/76 BMI: 18.71 Physical Exam VITALS: BP- 125/81 CHEST: Normal breath sounds General: alert, healthy, and no distress Head: Normocephalic, No masses, lesions, tenderness or abnormalities Eye Exam: PERRLA, extraocular movements intact, conjunctiva are pink and non- injected, sclera clear Ears: External ears normal, Canals clear, TM's Normal Nose: no mucosal erythema, no mucosal edema, no purulent discharge Oropharynx: no exudate, no erythema, lips, buccal mucosa, and tongue normal, and mucous membranes are moist Neck: supple, no adenopathy, no bruits, thyroid normal size, non-tender, without nodularity Lymph: no palpable lymphadenopathy Heart: regular rate & rhythm, no murmur, and no gallops Lungs: chest symmetric with normal AP diameter, no chest deformities noted, no chest wall tenderness, lungs clear to auscultation Pulses: carotid=2/4 w/o bruits Abdomen: abdomen soft, non-tender, normal bowel sounds, and no masses or organomegaly Extremities: less than 2 second capillary refill, no joint deformities, effusion, or inflammation Neuro Exam: alert & oriented x 3 with fluent speech, no focal motor/sensory deficits, gait normal, reflexes normal and symmetric I have reviewed the following results: Results DIAGNOSTIC Treadmill stress test: Blood pressure reached 230/90 mmHg Echocardiogram: Diastolic dysfunction, normal EF Latest Reference Range & Units 04/26/22 07:47 02/01/23 09:04 04/25/23 09:47 05/03/23 07:14 07/28/23 09:16 07/28/23 10:26 08/28/23 12:46 02/07/24 08:18 Triglycerides <=174 mg/dL 74 92 Cholesterol <200 mg/dL 229 (H) 239 (H) Non-HDL Cholesterol <=159 mg/dL 151 163 (H) HDL Cholesterol >49 mg/dL 78 76 LDL Cholesterol <=129 mg/dL 136 (H) 145 (H) SODIUM 135 - 146 mmol/L 137 136 POTASSIUM 3.5 - 5.1 mmol/L 4.4 4.2 CHLORIDE 98 - 107 mmol/L 98 99 CO2 22 - 32 mmol/L 27 26 BUN 6 - 20 mg/dL 12 17 CREATININE 0.5 - 1.0 mg/dL 0.6 0.7 EGFR >=60 mL/min >90 >90 ANION GAP 7 - 15 mmol/L 12 11 GLUCOSE 70 - 120 mg/dL 90 89 CALCIUM 8.4 - 10.2 mg/dL 9.4 9.2 Protein 6.0 - 8.3 g/dL 6.9 CBC Rpt WBC 4.00 - 10.80 K/uL 5.04 RBC 3.85 - 5.15 M/uL 4.23 HGB 12.0 - 15.3 g/dL 13.3 HCT 36.0 - 45.2 % 39.8 MCV 81.5 - 97.5 fL 94.1 MCH 27.0 - 34.0 pg 31.4 MCHC 32.0 - 36.0 g/dL 33.4 RDW 11.5 - 15.5 % 12.9 PLT 140 - 400 K/uL 234 MPV 6.6 - 11.1 fL 9.4 CBC WITH WBC DIFFERENTIAL Rpt ! Absolute Neutrophils 1.80 - 7.70 K/uL 2.30 Absolute Lymphocytes 1.00 - 4.80 K/ul 1.98 Absolute Monocytes 0.00 - 1.10 K/uL 0.57 Absolute Eosinophils 0.00 - 0.70 K/uL 0.16 Absolute Basophils 0.00 - 0.20 K/uL 0.03 Albumin 3.8 - 5.0 g/dL 4.4 AST 10 - 35 U/L 22 ALT 10 - 35 U/L 17 Alkaline Phosphatase 35 - 130 U/L 67 Bilirubin, Total <=1.2 mg/dL 0.4 MAMMOGRAM SCREENING LATRICE BILATERAL Rpt Rpt EKG Rpt ECHO, STRESS (EXERCISE) W/ PHYSICIAN Rpt US AAA SCREEN, VASCULAR LAB Rpt Assessment and Plan Assessment & Plan Hypertension Patient was previously on Lisinopril 10mg daily, but reduced to 5mg due to concerns of low blood pressure readings at home. Patient has since stopped the medication and reports occasional readings inthe 120s/80s. No symptoms of lightheadedness or dizziness reported. -Discontinue Lisinopril given the patient's normal blood pressure readings and episodes of low blood pressure. -Encourage patient to continue monitoring blood pressure at home. Hyperlipidemia Patient is currently on Rosuvastatin. No reported issues with the medication. -Continue Rosuvastatin. -Order lipid panel to assess current control. Family History of Coronary Artery Disease Patient's sister has severe heart disease with multiple coronary artery blockages. Patient inquiredabout LPA testing. -Consider LPA testing given the family history of severe coronary artery disease. Osteoporosis Patient has been on Fosamax for 5 years and has a DEXA scan scheduled for June. -Continue Fosamax until DEXA scan results are available. -Plan treatment based on DEXA scan results. Preventive Health Patient inquired about RSV vaccine. -Recommend RSV vaccine, timing to be determined based on vaccine availability and RSV season. General Health Maintenance -Continue regular exercise, focusing on safe activities given the patient's glaucoma and wet AMD. -Continue regular follow-ups with dermatology. -Order routine blood work, patient to fast for 12 hours prior to testing. Age-related osteoporosis without current pathological fracture (Primary) Exudative age-related macular degeneration of left eye with active choroidal neovascularization (HCC) Hyperlipidemia with target LDL less than 100 - LIPID PANEL WITH DIRECT LDL IF TG IS HIGH; Future; Expected date: 05/28/2024 - COMPREHENSIVE METABOLIC PANEL; Future; Expected date: 05/28/2024 - LIPOPROTEIN (A); Future; Expected date: 05/28/2024 - APOLIPOPROTEIN B; Future; Expected date: 05/28/2024 Persistent insomnia Primary open angle glaucoma (POAG) of both eyes, moderate stage Postmenopausal atrophic vaginitis History of basal cell carcinoma (BCC) Wrap-Up Follow-up: Return in about 1 year (around 05/28/2025). | Check-out note: Print lab orders Time: I spent a total of 30-39 minutes (exact time 30 mins) on the date of service in preparation, delivery, and documentation of the care provided to Joyce Parker excluding any time spent in the performance of separately billed services. Text in this note was generated using an ambient documentation service. I discussed the use of a device to record and summarize our discussion today. All persons present during the encounter consented to its use. Mary Kenyon DO documented in this encounter Nursing Notes * Bina Reid LPN - 05/28/2024 7:50 AM EST Joyce Parker presents for annual physical exam and to discuss BP. Stopped taking Lisinopril because BP's were running low. Medications & HM reviewed. documented in this encounter Plan of Treatment Upcoming Encounters Date Type Department Care Team (Late st Contact Info) Description 06/03/2024 2:15 PM EST Office Visit Ophthalmology, [facility] [address] [place] [address] Dimitry Schneider DO [address] [place] [address] 06/19/2024 8:30 AM EST Imaging Radiology [facility] [address] [place] [phone] 05/30/2025 7:20 AM EST Office Visit Family Practice [facility] [place] [address] [facility] [place] [address] Mary Kenyon, [address] [facility] [place] [address] Scheduled Orders Name Type Priority Associated Diagnoses Orde r Schedule LIPID PANEL WITH DIRECT LDL IF TG IS HIGH Lab Routine Hyperlipidemia with target LDL less than 100 Expected: 05/28/2024, Expires: 05/28/2025 COMPREHENSIVE METABOLIC PANEL Lab Routine Hyperlipidemia with target LDL less than 100 Expected: 05/28/2024 (Approximate), Expires: 05/28/2025 LIPOPROTEIN (A) Lab Routine Hyperlipidemia with target LDL less than 100 Expected: 05/28/2024, Expires: 05/28/2025 APOLIPOPROTEIN B Lab Routine Hyperlipidemia with target LDL less than 100 Expected: 05/28/2024, Expires: 05/28/2025 Scheduled Procedures Name Priority Associated Diagnoses Date/Ti [...] D LEVEL ONCE IN A LIFETIME-USE SMARTSET# [id number] Completed 12/24/2019, 04/27/2018 Influenza Vaccine (FLU shot) [...] this encounter Medical Devices Implanted Type Area Fertilizing Machine Operator Device Identifier Shelf Expiration Date Model / Serial / Lot Clip Quick 2.8mm 230cm - [id number] Implanted:Qty: 2 on 07/13/2021 by Tr Kim MD at ENDOSCOPY [facility] [employer] [facility] 11/15/2023 [id number] / / Description:ascending colon documented as of this encounter Visit Diagnoses Diagnosis Age-related osteoporosis without current pathological fracture- Primary Senile osteoporosis Exudative age-related macular degeneration of left eye with active choroidal neovascularization (HCC) Hyperlipidemia with target LDL less than 100 Other and unspecified hyperlipidemia Persistent insomnia Persistent disorder of initiating or maintaining sleep Primary open angle glaucoma (POAG) of both eyes, moderate stage Postmenopausal atrophic vaginitis History of basal cell carcinoma (BCC) documented in this encounter Advance Directives Documents on File Type Date Recorded Patient Banking Specialist Expl anation Advance Directives and Living Will 06/15/2022 ADVANCE DIRECTIVE / LIVING WILL Power of Filtration Operator 06/15/2022 POWER OF A TTORNEY Care Teams Estate Planning Counselor Relationship Specialty Start Date End Date Mary Kenyon DO [address] [place] [address] PCP - General Family Medicine 11/27/17 documented as of this encounter
--- OUTSIDE RECORDS SUMMARY | 2024-07-15 20:40 | External Medical Summary | Summary of Care ---
Author Name Unknown Organization [facility] Address [address] [place] [address] Phone [phone] Care Team Providers Care Wrapper Layer Name Role Phone Mary Kenyon DO Primary Care Provider Reason for Visit * Reason Onset Date Comments Appointment 04/29/2024 Encounter Details Date Type Department Care Team (Late st Contact Info) Description 04/29/2024 Telephone Ophthalmology, [facility] [address] [facility] [place] [address] Services, Scheduling [address] [place] [address] Appointment Allergies Active Allergy Reactions Criticality Noted Date Comments Amoxicillin 06/27/2023 Other Reaction(s): rash Penicillins Hives 04/26/2018 documented as of this encounter (statuses as of 04/29/2024) Medications Multiple Vitamins-Mineral s (MULTIVITAMIN ADULT) TABSIndications: [...] as of this encounter (statuses as of 04/29/2024) Active Problems Problem Noted Date Diagnosed Date [...] as of this encounter (statuses as of 04/29/2024) Resolved Problems Problem Noted Date Diagnosed Date Resolved Date Encounter for examination fo r normal comparison and control in clinical research program 03/12/2018 11/18/2019 Overview (08/03/2020): DO NOT DELETE [facility] DETECT Study: Project # [id number], Architectural Renderer: Beltran Gann, PhD. SUMMARY: Goal: Establish test [...] contact study staff at ; after hours Architectural Renderer via the [facility] coin wrapping machine operator . Please contact study team before resolving/deleting from patients problem list. Study phone number: [phone]. Diagnosis changed due to Research Module. Go to Snapshot for study details. Encounter for examination fo r normal comparison and control in clinical research program 03/12/2018 12/16/2021 Overview (08/03/2020): DO NOT DELETE - [facility] Study: Project # [id number], Architectural Renderer: Yonas Yates, MS, MPH. SUMMARY: Goal: Establish [...] contact study staff at ; after hours Architectural Renderer via the [facility] coin wrapping machine operator . - Please contact study team before resolving/deleting from patients problem list. Study phone number: [phone]. Diagnosis changed due to Research Module. Go to [employer] for study details. documented as of this encounter (statuses as of 04/29/2024) Immunizations Name Administration Dates Next Due COVID-19 mRNA, LNP-s, No Pre serve, 2-Dose Series (Moderna) 01/06/2023 COVID-19 mRNA, LNP-s, No Pre serve, 2-Dose Series (Pfizer) 01/09/2021,06/01/2020,05/08/2020 COVID-19, LNP-s, No Preserve , Sandro-sucrose, Ages 12+ (Pfizer) 07/20/2021 COVID-19, MRNA-LNP, 24-25, P R, 30MCG/0.3ML, IM, 12YRS AND ABOVE ([facility]) 01/04/2024 COVID-19, MRNA-LNP, PF, 30 M CG/0.3 mL, 12 YRS AND ABOVE, IM ([facility]) 07/07/2023 COVID-19, mRNA, LNP-s, PF, B ooster, [...] No 12/26/2022 Does the household have a [facility] hospit[facility] source of income? (Household - for [...] encounter Miscellaneous Notes * Telephone Encounter - Mirta Trammell, TOL[facility] - 04/29/2024 12:10 PM EST Spoke with patient she is scheduled for 06/03/24 @ 2:15pm * Telephone Encounter - Chelsea Acosta OSA - 04/29/2024 10:21 AM EST Pt calling to schedule her 5-[address] Schneider pt stated around May 23 documented in this encounter Plan of Treatment Upcoming Encounters Date Type Department Care Team (Late st Contact Info) Description 05/20/2024 10:40 AM EST Office Visit Family Practice [facility] [address] [place] [address] Mary Kenyon DO [address] [facility] [place] [address] 06/03/2024 2:15 PM EST Office Visit Ophthalmology, [facility] [address] [place] [address] Dimitry Schneider, DO [address] [place] [address] 06/19/2024 8:30 AM EST Imaging Radiology [facility] [address] [place] [id number] Scheduled Procedures Name Priority Associated Diagnoses Date/Ti [...] D LEVEL ONCE IN A LIFETIME-USE SMARTSET# 70080 Completed 12/24/2019, 04/27/2018 Influenza Vaccine (FLU shot) [...] this encounter Medical Devices Implanted Type Area Rental Sales Associate Device Identifier Shelf Expiration Date Model / Serial / Lot Clip Quick 2.8mm 230cm - [id number] Implanted:Qty: 2 on 07/13/2021 by Tr Kim MD at ENDOSCOPY [facility] [employer] 11/15/2023 [id number] / / Description:ascending colon documented as of this encounter Advance Directives Documents on File Type Date Recorded Patient Mains And Service Supervisor Expl anation Advance Directives and Living Will 06/15/2022 ADVANCE DIRECTIVE / LIVING WILL Power of Evening Anchor 06/15/2022 POWER OF A TTORNEY Care Teams Wrapper Layer Relationship Specialty Start Date End Date Mary Kenyon DO [address] [place] [address] PCP - General Family Medicine 11/27/17 documented as of this encounter
--- OUTSIDE RECORDS SUMMARY | 2024-07-15 20:40 | External Medical Summary | Summary of Care ---
Author Name Unknown Organization [facility] Address [address] [place] [address] Phone [phone] Care Team Providers Care Assistant County Engineer Name Role Phone Mary Kenyon DO Primary Care Provider Encounter Details Date Type Department Care Team (Late st Contact Info) Description 06/04/2024 Orders Only Family Practice [facility] [address] [facility] [place] [address] Mary Kenyon DO [address] [facility] [place] [address] Allergies Active Allergy Reactions Criticality Noted Date Comments Amoxicillin 06/27/2023 Other Reaction(s): rash Penicillins Hives 04/26/2018 documented as of this encounter (statuses as of 06/13/2024) Medications Multiple Vitamins-Mineral s (MULTIVITAMIN ADULT) TABSIndications: [...] as of this encounter (statuses as of 06/13/2024) Active Problems Problem Noted Date Diagnosed Date [...] as of this encounter (statuses as of 06/13/2024) Resolved Problems Problem Noted Date Diagnosed Date Resolved Date Exudative age-related macula r degeneration of left eye with active choroidal neovascularization 04/25/2022 05/28/2024 Basal cell carcinoma (BCC) of ala nasi 04/26/2018 05/28/2024 Encounter for examination fo r normal comparison and control in clinical research program 03/12/2018 11/18/2019 Overview (08/03/2020): DO NOT DELETE [facility] DETECT Study: Project # [id number], Diet Aide: Beltran Gann, PhD. SUMMARY: Goal: Establish test [...] contact study staff at ; after hours Diet Aide via the [facility] turn machine operator . Please contact study team before resolving/deleting from patients problem list. Study phone number: [phone]. Diagnosis changed due to Research Module. Go to Snapshot for study details. Encounter for examination fo r normal comparison and control in clinical research program 03/12/2018 12/16/2021 Overview (08/03/2020): DO NOT DELETE - [facility] Study: Project # [id number], Diet Aide: Yonas Yates, MS, MPH. SUMMARY: Goal: Establish [...] contact study staff at ; after hours Diet Aide via the [facility] turn machine operator . - Please contact study team before resolving/deleting from patients problem list. Study phone number: [phone]. Diagnosis changed due to Research Module. Go to [employer] for study details. documented as of this encounter (statuses as of 06/13/2024) Immunizations Name Administration Dates Next Due COVID-19 mRNA, LNP-s, No Pre serve, 2-Dose Series (Moderna) 01/06/2023 COVID-19 mRNA, LNP-s, No Pre serve, 2-Dose Series (Pfizer) 01/09/2021,06/01/2020,05/08/2020 COVID-19, LNP-s, No Preserve , Sandro-sucrose, Ages 12+ (Pfizer) 07/20/2021 COVID-19, MRNA-LNP, 24-25, P R, 30MCG/0.3ML, IM, 12YRS AND ABOVE ([facility]) 01/04/2024 COVID-19, MRNA-LNP, PF, 30 M CG/0.3 mL, 12 YRS AND ABOVE, IM ([facility]) 07/07/2023 COVID-19, mRNA, LNP-s, PF, B ooster, [...] No 05/01/2024 Does the household have a [facility] source of income? (Household - for [...] Description 06/19/2024 8:30 AM EST Imaging Radiology [facility] [address] [place] [id number] 07/23/2024 8:15 AM EDT Office Visit Ophthalmology, [facility] [address] [place] [address] Dimitry Schneider, DO [address] [place] [address] 05/30/2025 7:20 AM EST Office Visit Family Practice [facility] [address] [facility] [place] [address] Mary Kenyon, DO [address] [facility] [place] [address] Scheduled Procedures Name Priority Associated Diagnoses Date/Ti [...] D LEVEL ONCE IN A LIFETIME-USE SMARTSET# 99477 Completed 12/24/2019, 04/27/2018 Influenza Vaccine (FLU shot) [...] this encounter Medical Devices Implanted Type Area Shingles Roofer Helper Device Identifier Shelf Expiration Date Model / Serial / Lot Clip Quick 2.8mm 230cm - [id number] Implanted:Qty: 2 on 07/13/2021 by Tr Kim MD at ENDOSCOPY [facility] [employer] [facility] 11/15/2023 [id number] / / Description:ascending colon documented [...] LAB OUTSIDE LAB (SEE SCANNED REPORT) HEMOGLOBIN, [id number] LAB OUTSIDE LAB (SEE SCANNED REPORT) PHOSPHORUS-OUTSIDE [...] Documents on File Type Date Recorded Patient Manager Medicare Marketing Expl anation Advance Directives and Living Will 06/15/2022 ADVANCE DIRECTIVE / LIVING WILL Power of Ballistics Tester 06/15/2022 POWER OF A TTORNEY Care Teams Assistant County Engineer Relationship Specialty Start Date End Date Mary Kenyon DO [address] [place] [address] PCP - General Family Medicine 11/27/17 documented as of this encounter
--- OUTSIDE RECORDS SUMMARY | 2024-07-15 20:40 | External Medical Summary | Summary of Care ---
Author Name Unknown Organization [facility] Address [address] [place] [address] Phone [phone] Care Team Providers Care Photographic Processor Name Role Phone Mary Kenyon DO Primary Care Provider Reason for Visit * Reason Comments eRx-Medication Refill Encounter Details Date Type Department Care Team (Late st Contact Info) Description 04/22/2024 Refill Family Practice [facility] [address] [facility] [place] [address] Mary Kenyon DO [address] [facility] [place] [address] Allergies Active Allergy Reactions Criticality Noted Date Comments Amoxicillin 06/27/2023 Other Reaction(s): rash Penicillins Hives 04/26/2018 documented as of this encounter (statuses as of 04/24/2024) Medications Multiple Vitamins-Mineral s (MULTIVITAMIN ADULT) TABSIndications: [...] as of this encounter (statuses as of 04/24/2024) Active Problems Problem Noted Date Diagnosed Date [...] as of this encounter (statuses as of 04/24/2024) Resolved Problems Problem Noted Date Diagnosed Date Resolved Date Encounter for examination fo r normal comparison and control in clinical research program 03/12/2018 11/18/2019 Overview (08/03/2020): DO NOT DELETE [facility] DETECT Study: Project # [id number], Field Contact Technician: Beltran Gann, PhD. SUMMARY: Goal: Establish [...] contact study staff at ; after hours Field Contact Technician via the [facility] slurry plant operator . Please contact study team before resolving/deleting from patients problem list. Study phone number: [phone]. Diagnosis changed due to Research Module. Go to Snapshot for study details. Encounter for examination fo r normal comparison and control in clinical research program 03/12/2018 12/16/2021 Overview (08/03/2020): DO NOT DELETE - [facility] [place] Study: Project # [id number], Field Contact Technician: Yonas Yates, MS, MPH. SUMMARY: Goal: [...] contact study staff at ; after hours Field Contact Technician via the [facility] slurry plant operator . - Please contact study team before resolving/deleting from patients problem list. Study phone number: [phone]. Diagnosis changed due to Research Module. Go to [employer] for study details. documented as of this encounter (statuses as of 04/24/2024) Immunizations Name Administration Dates Next Due COVID-19 mRNA, LNP-s, No Pre serve, 2-Dose Series (Moderna) 01/06/2023 COVID-19 mRNA, LNP-s, No Pre serve, 2-Dose Series (Pfizer) 01/09/2021,06/01/2020,05/08/2020 COVID-19, LNP-s, No Preserve , Sandro-sucrose, Ages 12+ (Pfizer) 07/20/2021 COVID-19, MRNA-LNP, 24-25, P R, 30MCG/0.3ML, IM, 12YRS AND ABOVE ([facility]) 01/04/2024 COVID-19, MRNA-LNP, PF, 30 M CG/0.3 mL, 12 YRS AND ABOVE, IM ([facility]) 07/07/2023 COVID-19, mRNA, LNP-s, [...] encounter Miscellaneous Notes * Telephone Encounter - Fernando Armendariz, [facility] - 04/24/2024 11:44 AM EST Refused Prescriptions: Disp Refills Rosuvastatin Calcium 5 MG Oral Tablet (Cre*30 Tab*1 Sig: TAKE 1TABLET BY MOUTH EVERY DAY IN THE MORNINGRefused By: FERNANDO ARMENDARIZReason for Refusal: Too soonReason for Refusal Comment: refills sent 04/23/24 90 DSx 3 rfs Electronically signed by Fernando Armendariz, [facility] at 04/24/2024 11:44 AM EST documented in this encounter Plan of Treatment Upcoming Encounters Date Type Department Care Team (Late st Contact Info) Description 06/19/2024 8:30 AM EST Imaging Radiology [facility] [address] [place] [address] Scheduled Procedures Name Priority Associated [...] D LEVEL ONCE IN A LIFETIME-USE SMARTSET# [id number] Completed 12/24/2019, 04/27/2018 Influenza Vaccine (FLU shot) [...] this encounter Medical Devices Implanted Type Area Vest Presser Device Identifier Shelf Expiration Date Model / Serial / Lot Clip Quick 2.8mm 230cm - [id number] Implanted:Qty: 2 on 07/13/2021 by Tr Kim MD at [facility]COPY [facility] [employer] [facility] 11/15/2023 -[id number] / / Description:ascending colon documented as of this encounter Advance Directives Documents on File Type Date Recorded Patient Parking Meter Mechanic Expl anation Advance Directives and Living Will 06/15/2022 ADVANCE DIRECTIVE / LIVING WILL Power of Patient Svcs Mgr 06/15/2022 POWER OF A TTORNEY Care Teams Photographic Processor Relationship Specialty Start Date End Date Mary Kenyon DO [address] [place] [address] PCP - General Family Medicine 11/27/17 documented as of this encounter
--- OUTSIDE RECORDS SUMMARY | 2024-07-15 20:40 | External Medical Summary | Summary of Care ---
Author Name Unknown Organization [facility] Address [address] [place] [address] Phone [phone] Care Team Providers Care Women'S Garment Fitter Name Role Phone Mary Kenyon DO Primary Care Provider Reason for Visit * Reason Comments Follow Up 6-8 week follow up * Clinic-administered Medications (Within 10 days (routine)) - Authorized Specialty Diagnoses / Procedures Referred By Apollo sylvester Referred To Contact Ophthalmology Diagnoses Exudative age-related macular degeneration, left eye, with active choroidal neovascularization (HCC) Procedures MA INJECTION, FARICIMAB-SVOA, 0.1 MG MA INTRAVITREAL NJX PHARMACOLOGIC AGT SPX Dimitry Schneider DO [address] [address] Phone: tel: fax: Ophthalmology, [facility] [address] [facility] [place] [address] Phone: tel: fax: Referral ID Status Reason Start Date Expiration Date V isits Requested Visits Authorized [id number] Authorized Precert 05/13/2024 05/12/2025 [id number] Encounter Details Date Type Department Care Team (Late st Contact Info) Description 06/03/2024 2:15 PM EST Office Visit Ophthalmology, [facility] [address] [facility] [place] [address] Dimitry Schneider DO [address] [place] [address] Exudative age-related macular degeneration of left eye with active choroidal neovascularization (HCC)* Allergies Active Allergy Reactions Criticality Noted Date [...] 04/25/2022 05/28/2024 Basal cell carcinoma (BCC) of jewels urrutiai 04/26/2018 05/28/2024 Encounter for examination fo r normal comparison and control in clinical research program 03/12/2018 11/18/2019 Overview (08/03/2020): DO NOT DELETE [employer] DETECT Study: Project # [id number], Boiler Washer: Beltran Gann, PhD. SUMMARY: Goal: Establish test [...] contact study staff at ; after hours Boiler Washer via the [facility] hospital single ending machine operator . Please contact study team before resolving/deleting from patients problem list. Study phone number: [phone]. Diagnosis changed due to Research Module. Go to Snapshot for study details. Encounter for examination fo r normal comparison and control in clinical research program 03/12/2018 12/16/2021 Overview (08/03/2020): DO NOT DELETE - [employer] DETECT Study: Project # [id number], Boiler Washer: Yonas Yates, MS, MPH. SUMMARY: Goal: Establish [...] contact study staff at ; after hours Boiler Washer via the [facility] hospital single ending machine operator . - Please contact study team before resolving/deleting from patients problem list. Study phone number: [phone]. Diagnosis changed due to Research Module. Go [...] P R, 30MCG/0.3ML, IM, 12YRS AND ABOVE (Cream Style-Comirnaty) 01/04/2024 COVID-19, MRNA-LNP, PF, 30 M CG/0.3 mL, 12 YRS AND ABOVE, IM (ArmedZilla-Comirnaty) 07/07/2023 COVID-19, mRNA, LNP-s, PF, B ooster, [...] 05/01/2024 Does the household have a re lar source of income? (Household - for ages [...] AM EDT documented as of this encounter Progress Notes * Dimitry Schneider, DO - 06/03/2024 2:15 PM EST [facility] [place] Nursing Notes: Adri Brunson LPN 06/03/24 1417 Signed Joyce Parker is a 73 year old year old female who presents for AMD. Last Office Visit: 04/11/2024 (in office), Visit date not found (telemedicine) Patient currently states "The right eye has more impingement on the vision with glaucoma. Saw time recorder on Monday" Are you diabetic? No Do you drive? yes OCT image(s) of left eye acquired and filed/scanned into chart. Base Eye Exam Visual Acuity (Snellen - Linear) Right Left Dist sc 20/20 -1 20/30 -1 Tonometry (Tonopen, 2:16 PM) Right Left Pressure 22 19 Tonometry #2 (Tonopen, 2:16 PM) Right Left Pressure 19 Pupils Pupils APD Right PERRL None Left PERRL None Visual Brown (Counting fingers) Right Left Full Full Extraocular Movement Right Left Full, Ortho Full, Ortho Neuro/Psych Oriented x3: Yes Dilation Both eyes: 0.5% Proparacaine @ 2:15 PM Dilation #2 Left eye: 1.0% Mydriacyl, 2.5% Phenylephrine @ 2:15 PM Dilation Comments Patient cautioned that effects of dilation may last 2-7 hours dependant upon individual reaction. It was discussed that driving while dilated is not recommended. EXTERNAL: The ocular adnexae are unremarkable. SLE: Lids/Lashes: wnl OU Conjunctiva/Sclera: quiet OU Cornea: clear OU Anterior Chamber: deep and quiet OU Iris: normal OU; no NVI OU Lens: PCIOL OU; yag cap OU Dilated fundus exam OD: 11/22/2023 : vitreous: clear optic nerve: 0.6, no edema/pallor/NVD macula: drusen vessels: wnl periphery: wnl, no RT/RD Dilated fundus exam OS: vitreous: clear, large floater optic nerve: 0.6, no edema/pallor/NVD macula: drusen; srgrey membrane vessels: wnl periphery: wnl, no RT/RD OCT Interpretation: OD: 11/22/2023: drusen, no cme/srfluid--stable OS: drusen, +PED w/ trace trace fluid--improved, prior prior STABLE, prior STABLE, prior no sig change, prior improved 33um prior mild worse, prior STABLE, prior no change, prior improved 38um prior worse 54um prior improved 119um, prior worse 94um, prior improved 131um A/P: 1. Age-Related Macular Degeneration OD: dry -recommend AREDS2 MVI as directed and Amsler grid qday OS: wet -Avastin OS (05/30/22, 04/20/22, 03/15/22) -worse at 5.5 weeks -can only go 4 weeks on Avastin -Eylea 06/27/22 -worse at 4 weeks -Avastin (07/26/22) -Vabysmo 04/11/24, 02/27/24, 01/08/24, 11/22/23, 10/11/23, 09/05/23, 08/07/13, 06/27/23, 05/23/23, 04/21/23, 03/14/23, 02/14/23, 01/05/23, 12/08/22, 11/09/22, 09/27/22, 08/23/2022 --mildly improved -6 weeks, trace persistent fluid 2. Glaucoma OU -on drop, followed by Dr. Tang 3. Pseudophakia OU -stable F/u 6-8 weeks dilate and OCT OS Dimitry Schneider DO CC: PARS CC: Schuyler Tang, OD CC: PCP: Mary Kenyon, TIMEOUT PROCEDURE: correct patient identity-YES correct procedure and consent-YES verified side and site-YES correct patient position-YES all necessary equipment/prior studies present-YES reviewed special requirements of this patient-YES PROCEDURE: Intravitreal injection of Vabysmo (faricimab) 6mg OS INFORMED CONSENT: Risks, benefits and alternatives have been discussed with the patient. Risks include, but are not limited to: retinal tears, detachments, hemorrhage, glaucoma, infection, cataracts, need for more procedures and the potential risk of arterial thromboembolic events following use of intravitreal VEGF inhibitors defined as nonfatal stroke, nonfatal myocardial infarction or vascular . Patient is aware of these risks and consents to the procedure. DESCRIPTION OF PROCEDURE: The procedure site was confirmed. Topical proparacaine was applied to the surface of the eye after which subconjunctival anesthetic was administered. The area was prepped in the standard aseptic manner with 5% Betadine solution. An eyelid speculum was placed and 6mg (0.05 ml) of Vabysmo was injected 3.75 mm posterior to the limbus into the midvitreous cavity with a 30 gauge short needle. The eye speculum was removed, Betadine was flushed from the eye and optic nerve perfusion was insured. The patient tolerated the procedure without difficulty and was given followup instructions and instructedto use ophthalmic ointment 3x/day as needed. Dimitry Schneider DO, performed the procedure in its entirety. documented in this encounter Nursing Notes * Adri Brunson LPN - 06/03/2024 2:34 PM EST Joyce Parker to receive 18 Vabysmo 6mg Injection of the Left eye. Correct eye confirmed with patient and marked by Dimitry Schneider DO Vabysmo 6mg lot # [id number] Exp. Date: 07/2025 * Adri Brunson LPN - 06/03/2024 2:06 PM EST Joyce Parker is a 73 year old year old female who presents for AMD. Last Office Visit: 04/11/2024 (in office), Visit date not found (telemedicine) Patient currently states "The right eye has more impingement on the vision with glaucoma. Saw time recorder on Monday" Are you diabetic? No Do you drive? yes OCT image(s) of left eye acquired and filed/scanned into chart. documented in this encounter Plan of Treatment Upcoming Encounters Date Type Department Care Team (Late st Contact Info) Description 06/19/2024 8:30 AM EST Imaging Radiology [facility] [address] [place] [address] 07/23/2024 8:15 AM EDT Office Visit Ophthalmology, [facility] [address] [place] [address] Dimitry Schneider, DO [address] [place] [address] 05/30/2025 7:20 AM EST Office Visit Family Practice [facility] [address] [facility] [place] [address] Mary Kenyon DO [address] [facility] [place] [address] Scheduled Orders Name Type Priority Associated Diagnoses Orde r Schedule RETINA SCAN DIAGNOSTIC IMAGE, POSTERIOR Procedures Routine Exudative age-related macular degeneration of left eye with active choroidal neovascularization (HCC) Ordered: 06/03/2024 Scheduled Procedures Name Priority Associated Diagnoses Date/Ti [...] D LEVEL ONCE IN A LIFETIME-USE SMARTSET# [id number] Completed 12/24/2019, 04/27/2018 Influenza Vaccine (FLU shot) [...] this encounter Medical Devices Implanted Type Area Hand Fur Cleaner Device Identifier Shelf Expiration Date Model / Serial / Lot Clip Quick 2.8mm 230cm - [id number] Implanted:Qty: 2 on 07/13/2021 by Tr Kim MD at ENDOSCOPY [facility] [employer] 11/15/2023 [id number] / / Description:ascending colon documented as of this encounter Visit Diagnoses Diagnosis Exudative age-related macular degeneration of left eye with active choroidal neovascularization (HCC)- Primary documented in this encounter Administered Medications Active Administered Medications - up to 3 most recent administrations Medication Order MAR Action Action Date Dose Rate Site Faricimab-svoa (Vabysmo) prefilled syringe inj 6 mg 6 mg, Intravitreal, PRN Other, Starting on Mon02/27/24 at 0832, Until Mon02/26/25 at 0831, For 365 days, Each syringe should only be used for the treatment of a single eye. Only use the provided injection filter needle for the administration. Syringe must be stored under refrigeration and away from light. Syringe must reach room temperature prior to administration. May be kept at room temperature for up to 24 hours.Indications:Exudative age-related macular degeneration of left eye with active choroidal neovascularization (HCC) Given 06/03/2024 2:36 PM EST 6 mg Eye Left Given 04/11/2024 3:00 PM EST 6 mg Ey e Left Given 02/27/2024 8:36 AM EST 6 mg Ey e Left ROPivacaine (Naropin) inj 1.5 mg 1.5 mg, Injection, PRN Other, Starting on Mon09/05/23 at 0856, Until Mon09/04/24 at 0855, For 365 daysIndications:Exudative age-related macular degeneration of left eye with active choroidal neovascularization (HCC),Intermediate stage 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 Given 06/03/2024 2:35 PM EST 1.5 mg Eye L eft Given 04/11/2024 3:00 PM EST 1.5 mg Ey e Left Given 02/27/2024 8:22 AM EST 1.5 mg Ey e Left documented in this encounter Advance Directives Documents on File Type Date Recorded Patient Library Specialist Expl anation Advance Directives and Living Will 06/15/2022 ADVANCE DIRECTIVE / LIVING WILL Power of Roofer Assistant 06/15/2022 POWER OF A TTORNEY Care Teams Women'S Garment Fitter Relationship Specialty Start Date End Date Mary Kenyon DO [address] [place] [address] PCP - General Family Medicine 11/27/17 documented as of this encounter
--- OUTSIDE RECORDS SUMMARY | 2024-07-15 20:41 | External Medical Summary | Summary of Care ---
Author Name Unknown Organization [facility] Address [address] [facility] [place] [address] Phone [phone] Care Team Providers Care Printing Press Machinist Name Role Phone Mary Kenyon DO Primary Care Provider Reason for Visit * Reason Comments Follow Up 6-8 week follow up * Precert (Within 10 days (routine)) - Authorized Specialty Diagnoses / Procedures Referred By Apollo sylvester Referred To Contact Ophthalmology Diagnoses Exudative age-related macular degeneration, left eye, with active choroidal neovascularization (HCC) Procedures CO INJECTION, FARICIMAB-SVOA, 0.1 MG CO INTRAVITREAL NJX PHARMACOLOGIC AGT SPX Dimitry Schneider DO Phone: tel: fax: Referral ID Status Reason Start Date Expiration Date V isits Requested Visits Authorized [id number] Authorized Precert 07/29/2022 04/16/2099 [id number] Encounter Details Date Type Department Care Team (Late st Contact Info) Description 02/27/2024 8:00 AM EST Office Visit Ophthalmology, [facility] [address] [facility] [place] [address] Dimitry Schneider DO [address] [place] [address] Exudative age-related macular degeneration of left eye with active choroidal neovascularization (HCC)* Allergies Active Allergy Reactions Criticality Noted Date Comments Amoxicillin 06/27/2023 Other Reaction(s): rash Penicillins Hives 04/26/2018 documented as of this encounter (statuses as of 02/27/2024) Medications Multiple Vitamins-Mineral s (MULTIVITAMIN ADULT) TABSIndications: [...] by mouth 2 times a day. Active LORazepam 0.5 MG Oral Tablet (Ativan)Indicati ons:Primary insomnia Take 0.5 Tablets (0.25 mg) by mouth daily as needed for Insomnia. 30 Tablet 1 2 Active Rosuvastatin Calcium 5 MG Oral Tablet (Crestor) Take 1 Tablet by mouth in the morning. 30 Tablet 11 4 Active Eszopiclone 2 MG Oral TabletIndication s:Primary [...] the morning. 90 Tablet 1 4 Active Hospital, Clinic, or Other Facility Administered [...] as of this encounter (statuses as of 02/27/2024) Active Problems Problem Noted Date Diagnosed Date [...] as of this encounter (statuses as of 02/27/2024) Resolved Problems Problem Noted Date Diagnosed Date Resolved Date Encounter for examination fo r normal comparison and control in clinical research program 03/12/2018 11/18/2019 Overview (08/03/2020): DO NOT DELETE [facility] DETECT Study: Project # [id number], Bracelet Form Coverer: Beltran Gann, PhD. SUMMARY: Goal: Establish test [...] contact study staff at ; after hours Bracelet Form Coverer via the [facility] hospital automatic shirring machine operator . Please contact study team before resolving/deleting from patients problem list. Study phone number: [phone]. Diagnosis changed due to Research Module. Go to Snapshot for study details. Encounter for examination fo r normal comparison and control in clinical research program 03/12/2018 12/16/2021 Overview (08/03/2020): DO NOT DELETE - [facility] DETECT Study: Project # [id number], Bracelet Form Coverer: Yonas Yates, MS, MPH. SUMMARY: Goal: Establish [...] contact study staff at ; after hours Bracelet Form Coverer via the [facility] hospital automatic shirring machine operator . - Please contact study team before resolving/deleting from patients problem list. Study phone number: [phone]. Diagnosis changed due to Research Module. Go to Snapshot for study details. documented as of this encounter (statuses as of 02/27/2024) Immunizations Name Administration Dates Next Due COVID-19 [...] y our heating, water, or electric bill? (Adult - for ages 18 years and over) Not on file 12/27/2023 Is your family able to pay t he heat, water, or electric bill? (Household - for ages 0-17 years) Not on file 12/27/2023 Does your family have access to good internet? (Household - for ages 0-17 years) Not on file 12/27/2023 Employment Status Answer Date Recorded Are you unemployed or without regular income? No 12/26/2022 Does the household have a re gular source of income? (Household - for ages 0-17 years) Not on file 12/26/2022 Social Connections Answer Date Recorded How often do you feel lonely or isolated from those around you? (Adult - for ages 18 years and over) Not on file 12/27/2023 Financial Resource Strain Answer Date R ecorded [...] Progress Notes * Dimitry Schneider, DO - 02/27/2024 8:00 AM EST [facility] [place] Nursing Notes: Luis Alberto Palmer LPN 02/27/24 0804 Signed Joyce Parker is a 73 year old year old female who presents for AMD. Last Office Visit: 01/08/2024 (in office), Visit date not found (telemedicine) Patient currently states no change in vision. Are you diabetic? No Do you drive? yes OCT image(s) of left eye acquired and filed/scanned into chart. Base Eye Exam Visual Acuity (Snellen - Linear) Right Left Dist sc 20/30 -1 20/20 +1 Tonometry (Tonopen, 8:03 AM) Right Left Pressure 14 13 Pupils Pupils APD Right PERRL None Left PERRL None Visual Brown (Counting fingers) Right Left Full Full Extraocular Movement Right Left Full, Ortho Full, Ortho Neuro/Psych Oriented x3: Yes Dilation Both eyes: 0.5% Proparacaine @ 8:03 AM Dilation #2 Left eye: 1.0% Mydriacyl, 2.5% Phenylephrine @ 8:03 AM Dilation Comments Patient cautioned that effects of [...] cme/srfluid--stable OS: drusen, +PED w/ trace trace fluid--STABLE, prior STABLE, prior no sig change, prior improved 33um prior mild worse, prior STABLE, prior no change, prior improved 38um prior worse 54um prior improved 119um, prior worse 94um, prior improved 131um A/P: 1. Age-Related Macular Degeneration OD: dry -recommend AREDS2 MVI as directed and Amsler grid qday OS: wet -Avastin OS (05/30/22, 04/20/22, 03/15/22) -4 weeks--worse at 5.5 weeks -can only go 4 weeks on Avastin -Eylea 06/27/22 -worse at 4 weeks -Avastin (07/26/22) -Vabysmo 01/08/24, 11/22/23, 10/11/23, 09/05/23, 08/07/13, 06/27/23, 05/23/23, 04/21/23, 03/14/23, 02/14/23, 01/05/23, 12/08/22, 11/09/22, 09/27/22, 08/23/2022 --mildly improved -7 weeks, trace persistent fluid 2. Glaucoma OU -on drop, followed by Dr. Tang 3. Pseudophakia OU -stable F/u 6-8 weeks dilate and OCT OS Dimitry Schneider DO CC: Schuyler Tang, OD CC: PCP: Mary Kenyon DO TIMEOUT PROCEDURE: correct patient identity-YES correct procedure [...] documented in this encounter Nursing Notes * Luis Alberto Palmer LPN - 02/27/2024 8:20 AM EST Joyce Parker to receive 16 Vabysmo 6mg Injection of the Left eye. Correct eye confirmed with patient and marked by Dimitry Schneider DO Vabysmo 6mg lot # [id number] Exp. Date: 06/2025 * Luis Alberto Palmer LPN - 02/27/2024 7:56 AM EST Joyce Parker is a 73 year old year old female who presents for AMD. Last Office Visit: 01/08/2024 (in office), Visit date not found (telemedicine) Patient currently states no change in vision. Are you diabetic? No Do you drive? yes OCT image(s) of left eye acquired and filed/scanned into chart. documented in this encounter Miscellaneous Notes * Addendum Note - Luis Alberto Palmer LPN - 02/27/2024 8:25 AM ESTAddended by: LUIS ALBERTO PALMER on: 02/27/2024 08:25 AM Modules accepted: Orders * Addendum Note - Dimitry Schneider DO - 02/27/2024 8:00 AM ESTAddended by: DIMITRY SCHNEIDER on: 02/27/2024 08:32 AM Modules accepted: Orders documented in this encounter Plan of Treatment Upcoming Encounters Date Type Department Care Team (Late st Contact Info) Description 05/03/2024 8:40 AM EST Office Visit Family Practice [facility] [address] [facility] [place] [address] Mary Kenyon DO [address] [facility] [place] [address] 06/19/2024 8:30 AM EST Imaging Radiology, [facility] [address] [facility] [place] [address] Scheduled Orders Name Type Priority Associated Diagnoses Orde r Schedule RETINA SCAN DIAGNOSTIC IMAGE, POSTERIOR Procedures Routine Exudative age-related macular degeneration of left eye with active choroidal neovascularization (HCC) Ordered: 02/27/2024 Scheduled Procedures Name Priority Associated Diagnoses Date/Ti [...] Depression Screening 01/04/2025 01/05/2024 Mammogram 02/06/2025 02/07/2024, 01/15, 02/01/2023, Additional history exists Lipid Panel 05/03/2028 05/03/2023, 04/17, 06/16/2020, Additional history exists DTap/Tdap Vaccines (2 - Td or Tdap) 06/13/2028 06/13/2018 Colonoscopy 07/14/2031 07/13/2021, 06/16, 04/05/2011 Colorectal Cancer Screening 07/14/2031 Pneumococcal Vaccine: 65+ Years Completed 06/13/2018, 02/23/2017 Zoster Vaccines Completed 09/17/2019, 04/24/2019 VITAMIN D LEVEL ONCE IN A LIFETIME-USE SMARTSET# [id number] Completed 12/24/2019, 04/27/2018 Influenza Vaccine (FLU shot) [...] this encounter Medical Devices Implanted Type Area General Office Dispatcher Device Identifier Shelf Expiration Date Model / Serial / Lot Clip Quick 2.8mm 230cm - [id number] Implanted:Qty: 2 on 07/13/2021 by Tr Kim MD at [facility]COPY [facility] [employer] [facility] 11/15/2023 [id number] / / Description:ascending colon [...] 6 mg, Intravitreal, PRN Other, Starting on Tu02/27/24 at 0832, Until Mon02/26/25 at 0831, For [...] eye with active choroidal neovascularization (HCC) Given 02/27/2024 8:36 AM EST 6 mg Eye Left ROPivacaine (Naropin) inj 1.5 mg 1.5 mg, Injection, PRN Other, Starting on Mon09/05/23 at 0856, Until Mon09/04/24 at 0855, For 365 daysIndications:Exudative age-related macular degeneration of left eye with active choroidal neovascularization (HCC),Intermediate stage 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 Given 02/27/2024 8:22 AM EST 1.5 mg Eye Left Given 01/08/2024 9:34 AM EDT 1.5 mg Ey e Left Given 11/22/2023 2:00 PM EDT 1.5 mg Ey e Left documented in this encounter Advance Directives Documents on File Type Date Recorded Patient Visitor Use Assistant Expl anation Advance Directives and Living Will 06/15/2022 ADVANCE DIRECTIVE / LIVING WILL Power of Habilitation Worker 06/15/2022 POWER OF A TTORNEY Care Teams Printing Press Machinist Relationship Specialty Start Date End Date Mary Kenyon DO [address] [place] [address] PCP - General Family Medicine 11/27/17 documented as of this encounter
--- OUTSIDE RECORDS SUMMARY | 2024-07-15 20:41 | External Medical Summary | Summary of Care ---
Author Name Unknown Organization [facility] Address [address] [place] [address] Phone [phone] Care Team Providers Care Online Program Coordinator Name Role Phone Mary Kenyon DO Primary Care Provider Reason for Visit * Reason Comments Follow Up 6-8 week follow up * Precert (Within 10 days (routine)) - Authorized Specialty Diagnoses / Procedures Referred By Apollo sylvester Referred To Contact Ophthalmology Diagnoses Exudative age-related macular degeneration, left eye, with active choroidal neovascularization (HCC) Procedures [place] INJECTION, FARICIMAB-SVOA, 0.1 MG [place] INTRAVITREAL NJX PHARMACOLOGIC AGT SPX Dimitry Schneider DO Phone: tel: fax: Referral ID Status Reason Start Date Expiration Date V isits Requested Visits Authorized [id number] Authorized Precert 07/29/2022 04/16/2099 [id number] Encounter Details Date Type Department Care Team (Late st Contact Info) Description 04/11/2024 2:30 PM EST Office Visit Ophthalmology, [facility] [address] [facility] [place] [address] Dimitry Schneider DO [address] [place] [address] Exudative age-related macular degeneration of left eye with active choroidal neovascularization (HCC)* Allergies Active Allergy Reactions Criticality Noted Date Comments Amoxicillin 06/27/2023 Other Reaction(s): rash Penicillins Hives 04/26/2018 documented as of this encounter (statuses as of 04/11/2024) Medications Multiple Vitamins-Mineral s (MULTIVITAMIN ADULT) TABSIndications: [...] as of this encounter (statuses as of 04/11/2024) Active Problems Problem Noted Date Diagnosed Date [...] as of this encounter (statuses as of 04/11/2024) Resolved Problems Problem Noted Date Diagnosed Date Resolved Date Encounter for examination fo r normal comparison and control in clinical research program 03/12/2018 11/18/2019 Overview (08/03/2020): DO NOT DELETE [facility] [place] Study: Project # [id number], Business Team Leader: Beltran Gann, PhD. SUMMARY: Goal: Establish test [...] contact study staff at ; after hours Business Team Leader via the [facility] hospital cross cut saw operator . Please contact study team before resolving/deleting from patients problem list. Study phone number: [phone]. Diagnosis changed due to Research Module. Go to Snapshot for study details. Encounter for examination fo r normal comparison and control in clinical research program 03/12/2018 12/16/2021 Overview (08/03/2020): DO NOT DELETE - [facility] DETECT Study: Project # [id number], Business Team Leader: Yonas Yates, MS, MPH. SUMMARY: Goal: Establish [...] contact study staff at ; after hours Business Team Leader via the [facility] hospital cross cut saw operator . - Please contact study team before resolving/deleting from patients problem list. Study phone number: [phone]. Diagnosis changed due to Research Module. Go to Snapshot for study details. documented as of this encounter (statuses as of 04/11/2024) Immunizations Name Administration Dates Next Due COVID-19 [...] Progress Notes * Dimitry Schneider, DO - 04/11/2024 2:30 PM EST [facility] [place] Nursing Notes: Adri Brunson LPN 04/11/24 1437 Signed Joyce Parker is a 73 year old year old female who presents for AMD. Last Office Visit: 02/27/2024 (in office), Visit date not found (telemedicine) Patient currently states "Last time I was here my pressure was good but I went to my adjunct sociology professor a week later and the pressure was up and that's when they changed medications" Are you diabetic? No Do you drive? yes OCT image(s) of left eye acquired and filed/scanned into chart. Base Eye Exam Visual Acuity (Snellen - Linear) Right Left Dist sc 20/15 -2 20/40 +2 Dist ph sc 20/30 -1 Tonometry (Tonopen, 2:36 PM) Right Left Pressure 14 19 Pupils Pupils APD Right PERRL None Left PERRL None Visual Brown (Counting fingers) Right Left Full Full Extraocular Movement Right Left Full, Ortho Full, Ortho Neuro/Psych Oriented x3: Yes Dilation Both eyes: 0.5% Proparacaine @ 2:36 PM Dilation #2 Left eye: 1.0% Mydriacyl, 2.5% Phenylephrine @ 2:36 PM Dilation Comments Patient cautioned that effects [...] -worse at 4 weeks -Avastin (07/26/22) -Vabysmo 02/27/24, 01/08/24, 11/22/23, 10/11/23, 09/05/23, 08/07/13, 06/27/23, 05/23/23, 04/21/23, 03/14/23, 02/14/23, 01/05/23, 12/08/22, 11/09/22, 09/27/22, 08/23/2022 --mildly improved -6 weeks, trace persistent fluid 2. Glaucoma OU -on drop, followed by Dr. Tang 3. Pseudophakia OU -stable F/u 6-8 weeks dilate and OCT OS (will follow up w/ [facility] due to Insurance changes) Dimitry Schneider DO CC: PARS CC: Schuyler [...] documented in this encounter Nursing Notes * Nasrin Rivera RN - 04/11/2024 2:59 PM EST Joyce Parker to receive 17 Vabysmo 6mg Injection of the Left eye. Correct eye confirmed with patient and marked by Dimitry Schneider DO Vabysmo 6mg lot # [id number] Exp. Date: 01/2025 * Adri Brunson LPN - 04/11/2024 2:27 PM EST Joyce Parker is a 73 year old year old female who presents for AMD. Last Office Visit: 02/27/2024 (in office), Visit date not found (telemedicine) Patient currently states "Last time I was here my pressure was good but I went to my adjunct sociology professor a week later and the pressure was up and that's when they changed medications" Are you diabetic? No Do you drive? yes OCT image(s) of left eye acquired and filed/scanned into chart. documented in this encounter Plan of Treatment Upcoming Encounters Date Type Department Care Team (Late st Contact Info) Description 06/19/2024 8:30 AM EST Imaging Radiology [facility] [address] [place] [id number] Scheduled Orders Name Type Priority Associated Diagnoses Orde r Schedule RETINA SCAN DIAGNOSTIC IMAGE, POSTERIOR Procedures Routine Exudative age-related macular degeneration of left eye with active choroidal neovascularization (HCC) Ordered: 04/11/2024 Scheduled Procedures Name Priority Associated Diagnoses Date/Ti [...] D LEVEL ONCE IN A LIFETIME-USE SMARTSET# 20989 Completed 12/24/2019, 04/27/2018 Influenza Vaccine (FLU shot) [...] this encounter Medical Devices Implanted Type Area Retail Loan Originator Device Identifier Shelf Expiration Date Model / Serial / Lot Clip Quick 2.8mm 230cm - [id number] Implanted:Qty: 2 on 07/13/2021 by Tr Kim MD at ENDOSCOPY [facility] [employer] [facility] 11/15/2023 [id number] / / Description:ascending colon [...] eye with active choroidal neovascularization (HCC) Given 04/11/2024 3:00 PM EST 6 mg Eye Left Given 02/27/2024 8:36 AM EST 6 mg Ey e Left ROPivacaine (Naropin) inj 1.5 mg 1.5 mg, Injection, PRN Other, Starting on Mon09/05/23 at 0856, Until Mon09/04/24 at 0855, For 365 daysIndications:Exudative age-related macular degeneration of left eye with active choroidal neovascularization (HCC),Intermediate stage 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 Given 04/11/2024 3:00 PM EST 1.5 mg Eye L eft Given 02/27/2024 8:22 AM EST 1.5 mg Ey e Left Given 01/08/2024 9:34 AM EDT 1.5 mg Ey e Left documented in this encounter Advance Directives Documents on File Type Date Recorded Patient Parking Worker Expl anation Advance Directives and Living Will 06/15/2022 ADVANCE DIRECTIVE / LIVING WILL Power of Handstitching Machine Armhole Feller 06/15/2022 POWER OF A TTORNEY Care Teams Online Program Coordinator Relationship Specialty Start Date End Date Mary Kenyon DO [address] [place] [address] PCP - General Family Medicine 11/27/17 documented as of this encounter
--- OUTSIDE RECORDS SUMMARY | 2024-07-15 20:41 | External Medical Summary | Summary of Care ---
Author Name Unknown Organization [facility] Address [address] [place] [address] Phone [phone] Care Team Providers Care Ear Nose Throat Surgeon Name Role Phone Harrison Kenyon DO Primary Care Provider Reason for Visit * Reason Comments eRx-Medication Refill Encounter Details Date Type Department Care Team (Late st Contact Info) Description 03/12/2024 Refill Family Practice [facility] [place] [address] [facility] [place] [address] Harrison Kenyon DO [address] [facility] [place] [address] Allergies Active Allergy Reactions Criticality Noted Date Comments Amoxicillin 06/27/2023 Other Reaction(s): rash Penicillins Hives 04/26/2018 documented as of this encounter (statuses as of 03/13/2024) Medications Multiple Vitamins-Minera ls (MULTIVITAMIN ADULT) TABSIndications :Postmenopausal status, age-related Take 1 Tab by mouth daily. Active Calcium Citrate-Vitamin D 315-250 MG-UNIT Oral TabletIndicatio ns:Postmenopaus al status, age-related Take 1 Tab by mouth daily. Active Estradiol 0.1 MG/GM vaginal creamIndication s:Vaginal dryness Administer 2 g into the vagina [...] a day. Active Eszopiclone 2 MG Oral TabletIndicatio ns:Primary insomnia Take 1 Tablet by mouth at bedtime as needed for Sleep. 30 Tablet 1 09/18/19 24 Active Alendronate Sodium 70 MG Oral Tablet (Fosamax)Indica tions:Age-relat ed osteoporosis without current pathological fracture TAKE 1 [...] outbreak. 20 Tablet 1 01/05/20 24 Active Lisinopril 10 MG Oral Tablet (Prinivil) Take 1 Tablet by mouth in the morning. 90 Tablet 1 01/13/20 24 Active LORazepam 0.5 MG Oral Tablet (Ativan)Indicat ions:Primary insomnia Take 0.5 Tablets by mouth daily as needed for Insomnia. 30 Tablet 1 03/06/20 24 Active Rosuvastatin Calcium 5 MG Oral Tablet (Crestor) TAKE 1 TABLET BY MOUTH EVERY DAY IN THE MORNING 30 Tablet 1 03/13/20 24 Active Rosuvastatin Calcium 5 MG Oral Tablet (Crestor) Take 1 Tablet by mouth in the morning. 30 Tablet 11 04/25/19 24 024 Discontinued Hospital, Clinic, or Other Facility Administered Medication [...] as of this encounter (statuses as of 03/13/2024) Active Problems Problem Noted Date Diagnosed Date [...] as of this encounter (statuses as of 03/13/2024) Resolved Problems Problem Noted Date Diagnosed Date Resolved Date Encounter for examination fo r normal comparison and control in clinical research program 03/12/2018 11/18/2019 Overview (08/03/2020): DO NOT DELETE [facility] DETECT Study: Project # [id number], Esl Instructional Assistant: Beltran Gann, PhD. SUMMARY: Goal: Establish test [...] contact study staff at ; after hours Esl Instructional Assistant via the [facility] hospital panel saw operator . Please contact study team before resolving/deleting from patients problem list. Study phone number: [phone]. Diagnosis changed due to Research Module. Go to Snapshot for study details. Encounter for examination fo r normal comparison and control in clinical research program 03/12/2018 12/16/2021 Overview (08/03/2020): DO NOT DELETE - [facility] Study: Project # [id number], Esl Instructional Assistant: Yonas Yates, MS, MPH. SUMMARY: Goal: Establish [...] contact study staff at ; after hours Esl Instructional Assistant via the [facility] panel saw operator . - Please contact study team before resolving/deleting from patients problem list. Study phone number: [phone]. Diagnosis changed due to Research Module. Go to [employer] for study details. documented as of this encounter (statuses as of 03/13/2024) Immunizations Name Administration Dates Next Due COVID-19 mRNA, LNP-s, No Pre serve, 2-Dose Series (Moderna) 01/06/2023 COVID-19 mRNA, LNP-s, No Pre serve, 2-Dose Series ([employer]illa [employer]ze) 01/09/2021,06/01/2020,05/08/2020 COVID-19, LNP-s, No Preserve , Sandro-sucrose, Ages 12+ ([employer]) 07/20/2021 COVID-19, MRNA-LNP, 24-25, P R, 30MCG/0.3ML, IM, 12YRS AND ABOVE ([facility]) 01/04/2024 COVID-19, MRNA-LNP, PF, 30 M CG/0.3 mL, 12 YRS AND ABOVE, IM ([facility]) 07/07/2023 COVID-19, mRNA, LNP-s, PF, B ooster, 100mcg/0.5mg ([employer]) 01/07/2023,12/24/2021 COVID-19, mRNA, LNR-S, Bival ent, PF, 10mcg/0.2 ml ([employer]) 6m to 5 years 12/24/2021 Pneumococcal Conjugate [...] encounter Miscellaneous Notes * Telephone Encounter - Marielle Miller RPh - 03/13/2024 6:58 AM ESTSigned Prescriptions: Disp Refills Rosuvastatin Calcium 5 MG Oral Tablet (Cre*30 Tab*1 Sig: TAKE 1 TABLET BY MOUTH EVERY DAY IN THE MORNINGAuthorizing Provider: HARRISON KENYONOrderdemond User: MARIELLE MILLER * Telephone Encounter - Marielle Miller RPh - 03/13/2024 6:56 AM EST RX initiated on 04/25. Lipid panel recheck done 1 week later. RX approved until 05/03/2024 when other routine labs are due. Thank you, Marielle Miller, PharmD Clinical Pharmacist [facility] [phone] 03/13/2024, 6:58 AM documented in this encounter Plan of Treatment Upcoming Encounters Date Type Department Care Team (Late st Contact Info) Description 04/11/2024 2:30 PM EST Office Visit Ophthalmology, [facility] [address] [place] [address] Dimitry Schneider DO [address] [place] [address] 05/03/2024 8:40 AM EST Office Visit Family [facility] [address] [place] [address] Harrison Kenyon DO [address] [place] [address] 06/19/2024 8:30 AM EST Imaging Radiology, [place] [address] [place] [address] Scheduled Procedures Name Priority Associated Diagnoses Date/Ti [...] D LEVEL ONCE IN A LIFETIME-USE SMARTSET# 18410 Completed 12/24/2019, 04/27/2018 Influenza Vaccine (FLU shot) [...] this encounter Medical Devices Implanted Type Area Wood Furniture Assembler Device Identifier Shelf Expiration Date Model / Serial / Lot Clip Quick 2.8mm 230cm - [id number] Implanted:Qty: 2 on 07/13/2021 by Tr Kim MD at [facility]COPY [facility] [employer] [facility] 11/15/2023 [id number] / / Description:ascending colon documented as of this encounter Advance Directives Documents on File Type Date Recorded Patient Marketing Operations Intern Expl anation Advance Directives and Living Will 06/15/2022 ADVANCE DIRECTIVE / LIVING WILL Power of Supervisor Blood 06/15/2022 POWER OF A TTORNEY Care Teams Ear Nose Throat Surgeon Relationship Specialty Start Date End Date Harrison Kenyon DO [address] [place] [address] PCP - General Family Medicine 11/27/17 documented as of this encounter
--- OUTSIDE RECORDS SUMMARY | 2024-07-15 20:41 | External Medical Summary | Summary of Care ---
Author Name Unknown Organization [facility] Address [address] [facility] [facility] [place] [address] Phone [phone] Care Team Providers Care Cesspool Cleaner Name Role Phone Mary Kenyon DO Primary Care Provider Reason for Visit * Reason Comments Follow Up 6-8 week follow up * Precert (Within 10 days (routine)) - Authorized Specialty Diagnoses / Procedures Referred By Apollo sylvester Referred To Contact Ophthalmology Diagnoses Exudative age-related macular degeneration, left eye, with active choroidal neovascularization (HCC) Procedures [place] INJECTION, FARICIMAB-SVOA, 0.1 MG [place] INTRAVITREAL NJX PHARMACOLOGIC AGT SPX Dimitry Schneider DO Phone: tel: fax: Referral ID Status Reason Start Date Expiration Date V isits Requested Visits Authorized [id number] Authorized Precert 07/29/2022 04/16/2099 [id number] Encounter Details Date Type Department Care Team (Late st Contact Info) Description 02/27/2024 8:00 AM EST Office Visit Ophthalmology, [facility] [address] [facility] [place] [address] Dimitry Schneider DO [address] [place] [address] Exudative age-related macular degeneration of left eye [...] DELETE [facility] DETECT Study: Project # [id number], Suit Maker: Beltran Gann, PhD. SUMMARY: Goal: Establish test [...] contact study staff at ; after hours Suit Maker via the [facility] hospital boat hoist operator . Please contact study team before resolving/deleting from patients problem list. Study phone number: [phone]. Diagnosis changed due to Research Module. Go to Snapshot for study details. Encounter for examination fo r normal comparison and control in clinical research program 03/12/2018 12/16/2021 Overview (08/03/2020): DO NOT DELETE - [facility] DETECT Study: Project # [id number], Suit Maker: Yonas Yates, MS, MPH. SUMMARY: Goal: Establish [...] contact study staff at ; after hours Suit Maker via the [facility] hospital boat hoist operator . - Please contact study team before resolving/deleting from patients problem list. Study phone number: [phone]. Diagnosis changed due to Research Module. Go [...] - 02/27/2024 8:00 AM EST [facility] [place] Nursing Notes: [...] Dimitry Schneider DO Vabysmo 6mg lot # [id number] Exp. Date: 06/2025 * Luis Alberto Palmer [...] 8:40 AM EST Office Visit Family Practice [facility] [address] [facility] [place] [address] Mary Kenyon DO [address] [facility] [place] [address] 06/19/2024 8:30 AM EST Imaging Radiology, [facility] [address] [facility] [place] [address] Scheduled Orders Name Type Priority Associated Diagnoses [...] D LEVEL ONCE IN A LIFETIME-USE SMARTSET# 33251 Completed 12/24/2019, 04/27/2018 Influenza Vaccine (FLU shot) [...] this encounter Medical Devices Implanted Type Area Heavy Cleaner Device Identifier Shelf Expiration Date Model / Serial / Lot Clip Quick 2.8mm 230cm - [id number] Implanted:Qty: 2 on 07/13/2021 by Tr Kim MD at [facility]COPY [facility] 11/15/2023 [id number] / / Description:ascending colon documented as of this encounter Visit Diagnoses Diagnosis Exudative age-related macular degeneration of left eye with active choroidal neovascularization (HCC)- Primary documented in this encounter Administered Medications Active Administered Medications - up to 3 most recent administrations Medication Order MAR Action Action Date Dose Rate Site ROPivacaine (Naropin) inj 1.5 mg 1.5 mg, [...] Documents on File Type Date Recorded Patient Solid Waste Facility Supervisor Expl anation Advance Directives and Living Will 06/15/2022 ADVANCE DIRECTIVE / LIVING WILL Power of Rn Cardiovascular Icu 06/15/2022 POWER OF A TTORNEY Care Teams Cesspool Cleaner Relationship Specialty Start Date End Date Mary Kenyon DO [address] [place] [address] PCP - General Family Medicine 11/27/17 documented as of this encounter
--- OUTSIDE RECORDS SUMMARY | 2024-07-15 20:41 | External Medical Summary | Summary of Care ---
Author Name Unknown Organization [facility] Address [address] [place] [facility] [place] [address] Phone [phone] Care Team Providers Care Project Administrative Assistant Name Role Phone Harrison Kenyon DO Primary Care Provider Reason for Visit * Reason Onset Date Comments Medication Refill 03/04/2024 Encounter Details Date Type Department Care Team (Late st Contact Info) Description 03/04/2024 Refill Family Practice [facility] [place] [address] [place] [address] Harrison Kenyon DO [address] [facility] [place] [address] Primary insomnia Allergies Active Allergy Reactions Criticality Noted Date Comments Amoxicillin 06/27/2023 Other Reaction(s): rash Penicillins Hives 04/26/2018 documented as of this encounter (statuses as of 03/06/2024) Medications Multiple Vitamins-Mineral s (MULTIVITAMIN ADULT) TABSIndications: [...] by mouth 2 times a day. Active Rosuvastatin Calcium 5 MG Oral Tablet (Crestor) Take 1 Tablet by mouth in the morning. 30 Tablet 11 04/25/19 24 Active Eszopiclone 2 MG Oral TabletIndication s:Primary [...] lesions as needed for outbreak 1.5 g 01/05/20 24 Active valACYclovir HCl 1 GM [...] Insomnia. 30 Tablet 1 03/06/20 24 Active LORazepam 0.5 MG Oral Tablet (Ativan)Indicati ons:Primary insomnia Take 0.5 Tablets (0.25 mg) by mouth daily as needed for Insomnia. 30 Tablet 1 02/23/20 22 024 Discontin ued(Refil l) Hospital, Clinic, or Other Facility Administered Medication [...] as of this encounter (statuses as of 03/06/2024) Active Problems Problem Noted Date Diagnosed Date [...] as of this encounter (statuses as of 03/06/2024) Resolved Problems Problem Noted Date Diagnosed Date Resolved Date Encounter for examination fo r normal comparison and control in clinical research program 03/12/2018 11/18/2019 Overview (08/03/2020): DO NOT DELETE [facility] DETECT Study: Project # [id number], Cab Worker: Beltran Gann, PhD. SUMMARY: Goal: Establish test [...] contact study staff at ; after hours Cab Worker via the [facility] hospital fleshing machine operator . Please contact study team before resolving/deleting from patients problem list. Study phone number: [phone]. Diagnosis changed due to Research Module. Go to Snapshot for study details. Encounter for examination fo r normal comparison and control in clinical research program 03/12/2018 12/16/2021 Overview (08/03/2020): DO NOT DELETE - [facility] Study: Project # [id number], Cab Worker: Yonas Yates, MS, MPH. SUMMARY: Goal: Establish [...] contact study staff at ; after hours Cab Worker via the [facility] hospital fleshing machine operator . - Please contact study team before resolving/deleting from patients problem list. Study phone number: [phone]. Diagnosis changed due to Research Module. Go to Snapshot for study details. documented as of this encounter (statuses as of 03/06/2024) Immunizations Name Administration Dates Next Due COVID-19 mRNA, LNP-s, No Pre serve, 2-Dose Series (Moderna) 01/06/2023 COVID-19 mRNA, LNP-s, No Pre serve, 2-Dose Series ([employer]) 01/09/2021,06/01/2020,05/08/2020 COVID-19, LNP-s, No Preserve , Sandro-sucrose, Ages 12+ ([employer]) 07/20/2021 COVID-19, MRNA-LNP, 24-25, P R, 30MCG/0.3ML, IM, 12YRS AND ABOVE ([facility]) 01/04/2024 COVID-19, MRNA-LNP, PF, 30 M CG/0.3 mL, 12 YRS AND ABOVE, IM ([facility]) 07/07/2023 COVID-19, mRNA, LNP-s, PF, B ooster, 100mcg/0.5mg (Split) 01/07/2023,12/24/2021 COVID-19, mRNA, LNR-S, Bival ent, PF, 10mcg/0.2 ml (Split) 6m to 5 years 12/24/2021 Pneumococcal Conjugate [...] encounter Miscellaneous Notes * Telephone Encounter - Harrison Kenyon DO - 03/06/2024 11:04 AM EST Signed Prescriptions: Disp Refills LORazepam 0.5 MG Oral Tablet (Ativan) 30 Tab*1 Sig: Take 0.5 Tablets by mouth daily as needed for Insomnia. Authorizing Provider: HARRISON KENYON * Telephone Encounter - Schuyler Etienne [facility] - 03/06/2024 10:37 AM ESTPending Prescriptions: Disp Refills LORazepam 0.5 MG Oral Tablet (Ativan) 30 Tab*1 Sig: Take 0.5 Tablets by mouth daily as needed for Insomnia. * Telephone Encounter - Schuyler Etienne [facility] - 03/06/2024 10:36 AM EST I have reviewed the patients controlled substance dispensing history in the Prescription Drug Monitoring Program in compliance with the [facility] regulations before prescribing a controlled substance. PDMP checked on 03/06/2024. Pending Prescriptions: Disp Refills LORazepam 0.5 MG Oral Tablet (Ativan) 30 Tab*1 Sig: Take 0.5 Tablets by mouth daily as needed for Insomnia. Last Visit: 04/25/2023 (in office), Visit date not found (telemedicine) Next Visit: 05/03/2024 Date medication was last filled: 02/22/22 Date medication is due for refill: 04/22/22 Pharmacy: [facility] [id number] Is this request for a controlled substance? Yes and Urine Drug Screen Not completed Toxicology results: No results found for this or any previous visit. Please approve if appropriate. Thank You, Schuyler Wray [facility] Clinical Pharmacist [facility] ([facility]) 03/06/2024, 10:36 AM documented in this encounter Plan of Treatment Upcoming Encounters Date Type Department Care Team (Late st Contact Info) Description 04/11/2024 2:30 PM EST Office Visit Ophthalmology, [facility] [address] [place] [address] Dimitry Schneider DO [address] [place] [address] 05/03/2024 8:40 AM EST Office Visit Family Practice [facility] [address] [facility] [place] [address] Harrison Kenyon DO [address] [facility] [place] [address] 06/19/2024 8:30 AM EST Imaging Radiology, [facility] [address] [facility] [place] [address] Scheduled Procedures Name Priority Associated Diagnoses Date/Ti [...] D LEVEL ONCE IN A LIFETIME-USE SMARTSET# [id number] Completed 12/24/2019, 04/27/2018 Influenza Vaccine (FLU shot) [...] this encounter Medical Devices Implanted Type Area Russian Rubber Device Identifier Shelf Expiration Date Model / Serial / Lot Clip Quick 2.8mm 230cm - [id number] Implanted:Qty: 2 on 07/13/2021 by Tr Kim MD at ENDOSCOPY [facility] [employer] 11/15/2023 [id number] / / Description:ascending colon documented as of this encounter Visit Diagnoses Diagnosis Primary insomnia Persistent disorder of initiating or maintaining sleep documented in this encounter Advance Directives Documents on File Type Date Recorded Patient Precision Lens Centerer And Edger Expl anation Advance Directives and Living Will 06/15/2022 ADVANCE DIRECTIVE / LIVING WILL Power of Golf Ball Inspector 06/15/2022 POWER OF A TTORNEY Care Teams Project Administrative Assistant Relationship Specialty Start Date End Date Harrison Kenyon DO [address] [place] [address] PCP - General Family Medicine 11/27/17 documented as of this encounter
--- OUTSIDE RECORDS SUMMARY | 2024-07-15 20:41 | External Medical Summary | Summary of Care ---
Author Name Unknown Organization [facility] Address [address] [place] [address] Phone [phone] Care Team Providers Care Burrer Hand Name Role Phone Mary Kenyon DO Primary Care Provider Reason for Visit * Reason Onset Date Comments Medication Administration 01/31/2024 Flu an d/or Pneumo Inj Encounter Details Date Type Department Care Team (Late st Contact Info) Description 01/31/2024 11:00 AM EDT Immunization Ancillary [facility] [address] [place] [address] Sp, [facility] [address] [place] [address] Need for prophylactic vaccination and inoculation against influenza* Allergies Active Allergy Reactions Criticality Noted Date Comments Amoxicillin 06/27/2023 Other Reaction(s): rash Penicillins Hives 04/26/2018 documented as of this encounter (statuses as of 01/31/2024) Medications Medication Sig Dispensed Refills Start Date End Date Status Multiple Vitamins-Minerals (MULTIVITAMIN ADULT) TABSIndications:Post menopausal status, age-related Take 1 Tab by mouth daily. Active Calcium Citrate-Vitamin D 315-250 MG-UNIT Oral TabletIndications:Po stmenopausal status, age-related Take 1 Tab by mouth daily. Active Estradiol 0.1 MG/GM vaginal creamIndications:Vag inal dryness Administer 2 g into the vagina as needed. Active fluconazole (DIFLUCAN) 150 MG Tablet Take 1 Tablet by mouth as needed for Other (yeast infection). Active ibuprofen (MOTRIN) 200 MG Tablet Take 1 Tablet by mouth every 4 hours as needed for Pain. Active Latanoprostene Bunod 0.024 % Ophthalmic Solution 1 Drop at bedtime . 1 drop both eyes 09/26/2018 Active Brimonidine Tartrate 0.15 % Ophthalmic Solution (Alphagan P) 1 Drop in the morning and 1 Drop at noon and 1 Drop before bedtime. R eye only. Active PreserVision AREDS 2+Multi Vit Oral Capsule Take 1 Capsule by mouth 2 times a day. Active LORazepam 0.5 MG Oral Tablet (Ativan)Indications: Primary insomnia Take 0.5 Tablets (0.25 mg) by mouth daily as needed for Insomnia. 30 Tablet 1 02/22/2022 Active Rosuvastatin Calcium 5 MG Oral Tablet (Crestor) Take 1 Tablet by mouth in the morning. 30 Tablet 11 04/25/2023 Active Eszopiclone 2 MG Oral TabletIndications:Pr imary insomnia Take 1 Tablet by mouth at bedtime as needed for Sleep. 30 Tablet 1 09/18/2023 Active Alendronate Sodium 70 MG Oral Tablet (Fosamax)Indications :Age-related osteoporosis without current pathological fracture TAKE 1 TABLET BY MOUTH ONCE WEEKLY FIRST THING IN THE MORNING ON AN EMPTY STOMACH WITH 8 OUNCES OF WATER WAIT 30 MINUTES BEFORE EATING, DRINKING OR TAKING OTHER MEDICATIONS 12 Tablet 2 10/23/2023 Active Penciclovir 1 % External Cream (Denavir) Apply 1 Application topically to affected area every 2 hours while awake. Apply to shingles lesions as needed for outbreak 1.5 g 1 01/05/2024 Active valACYclovir HCl 1 GM Oral Tablet (Valtrex) Take 0.5 Tablets by mouth in the morning and 0.5 Tablets before bedtime. For HSV outbreak. 20 Tablet 1 01/05/2024 Active Lisinopril 10 MG Oral Tablet (Prinivil) Take 1 Tablet by mouth in the morning. 90 Tablet 1 01/13/2024 Active Hospital, Clinic, or Other Facility Administered [...] 1.5 mg IJ PRN 09/05/2023 09/04/2024 Active documented as of this encounter (statuses as of 01/31/2024) Active Problems Problem Noted Date Diagnosed Date [...] as of this encounter (statuses as of 01/31/2024) Resolved Problems Problem Noted Date Diagnosed Date Resolved Date Encounter for examination fo r normal comparison and control in clinical research program 03/12/2018 11/18/2019 Overview: DO NOT DELETE [facility] DETECT Study: Project # [id number], Furnace Process Plant Operator: Beltran Gann, PhD. SUMMARY: Goal: Establish [...] contact study staff at ; after hours Furnace Process Plant Operator via the [facility] compugraph operator . Please contact study team before resolving/deleting from patients problem list. Study phone number: [phone]. Diagnosis changed due to Research Module. Go to Snapshot for study details. Encounter for examination fo r normal comparison and control in clinical research program 03/12/2018 12/16/2021 Overview: DO NOT DELETE - [facility] [place] Study: Project # [id number], Furnace Process Plant Operator: Yonas Yates, MS, MPH. SUMMARY: Goal: [...] contact study staff at ; after hours Furnace Process Plant Operator via the [facility] compugraph operator . - Please contact study team before resolving/deleting from patients problem list. Study phone number: [phone]. Diagnosis changed due to Research Module. Go to Snapshot for study details. documented as of this encounter (statuses as of 01/31/2024) Immunizations Name Administration Dates Next Due COVID-19 mRNA, LNP-s, No Pre serve, 2-Dose Series (Moderna) 01/06/2023 COVID-19 mRNA, LNP-s, No Pre serve, 2-Dose Series (Pfizer) 01/09/2021,06/01/2020,05/08/2020 COVID-19, LNP-s, No Preserve , Sandro-sucrose, Ages 12+ ([employer]) 07/20/2021 COVID-19, MRNA-LNP, 23-24, P F, 30 MCG/0.3 mL, 12 YRS AND ABOVE, IM ([employer]Comirnat[employer]) 07/07/2023 COVID-19, MRNA-LNP, 24-25, P R, 30MCG/0.3ML, IM, 12YRS AND ABOVE ([employer]-Comirnaty) 01/04/2024 COVID-19, mRNA, LNP-s, PF, B ooster, 100mcg/0.5mg [...] ages 0-17 years) Not on file 12/26/2022 Sex and Gender Information Value Date Recorded Sex Assigned at Female 01/04/2021 3:18 AM EDT Gender Identity Female 01/04/2021 3:18 AM EDT Sexual Orientation Straight 01/04/2021 3: 18 AM EDT Job Start Date Occupation Industry Not on file Not on file Not on file documented as of this encounter Patient Instructions * Patient Instructions* Yecenia Astudillo CMA - 01/31/2024 11:03 AM EDT ~~PATIENT INSTRUCTIONS FOR FLU SHOT~~ Possible side effects of influenza vaccine, (flu shot), are usually mild and include: 1. Soreness or redness at injection site 2. Low grade fever 3. Body aches You may use Tylenol/Acetaminophen as needed for these symptoms. LET YOUR DOCTOR KNOW IMMEDIATELY IF YOU HAVE DIFFICULTY BREATHING OR SWALLOWING, EXPERIENCE ITCHINGOF FEET OR HANDS, HAVE SWELLING OF EYES, FACE OR INSIDE OF NOSE. documented in this encounter Progress Notes * Yecenia Astudillo CMA - 01/31/2024 11:03 AM EDT PRE - ADMINISTRATION DOCUMENTATION Are you experiencing any cold symptoms or fever? No Have you had Guillain-Conroe Syndrome (an illness that causes paralysis) within the last 6 weeks? No Have you had the flu shot in the past? YES Have you ever had a reaction to the flu shot? No Yecenia Astudillo CMA, 01/31/2024 11:02 AM Immunization Administration Documentation Time Out Procedure Performed: Yes Patient Identified (Ask Name/Date of ): Yes Does the patient have a fever greater than 101 degrees today? No Patient allergic to latex? No VFC Stock: No Immunization(s) verified: Yes, Immunization Name: Flu, VIS Sheet(s) given: Yes Verified Side and Site: Yes Verified Shot(s) with Parent(s)/Patient: Yes documented in this encounter Plan of Treatment Upcoming Encounters Date Type Department Care Team (Late st Contact Info) Description 02/07/2024 7:45 AM EDT Imaging Radiology [facility] [address] [place] [address] 02/27/2024 8:00 AM EST Office Visit Ophthalmology, [facility] [address] [place] [address] Dimitry Schneider DO [address] [place] [address] 05/03/2024 8:40 AM EST Office Visit Family [facility] [address] [place] [address] Mary Kenyon, [address] [facility] [place] [address] 06/19/2024 8:30 AM EST Imaging Radiology, [facility] [address] [facility] [place] [address] Scheduled Procedures Name Priority Associated Diagnoses Date/Ti me COLONOSCOPY FLEXIBLE PROXIMAL DIAGNOSTIC Recall History of colon polyps Health Maintenance Due Date Last Done Comments Cologuard 09/09/1996 Fecal Occult Blood Test 09/09/1996 Sigmoidoscopy 09/09/1996 DXA Scan 12/28/2023 12/27/2021, 12/16, 05/01/2019 Mammogram 02/02/2024 02/01/2023, 01/15, 01/31/2022, Additional history exists Adult Wellness Visit 01/04/2025 01/05/2024, 01/02/2023, 11/24/2020 Depression Screening 01/04/2025 01/05/2024 Lipid Panel 05/03/2028 05/03/2023, 04/17, 06/16/2020, Additional history exists DTap/Tdap Vaccines (2 - Td or Tdap) 06/13/2028 06/13/2018 Colonoscopy 07/14/2031 07/13/2021, 06/16, 04/05/2011 Colorectal Cancer Screening 07/14/2031 Pneumococcal Vaccine: 65+ Years Completed 06/13/2018, 02/23/2017 Zoster Vaccines Completed 09/17/2019, 04/24/2019 VITAMIN D LEVEL ONCE IN A LIFETIME-USE SMARTSET# [id number] Completed 12/24/2019, 04/27/2018 COVID-19 Vaccine Completed 01/04/2024, , 01/07/2023, Additional history exists Influenza Vaccine (FLU shot) Completed , 01/02/2023, [...] this encounter Medical Devices Implanted Type Area Community Educator Device Identifier Shelf Expiration Date Model / Serial / Lot Clip Quick 2.8mm 230cm - [id number] Implanted:Qty: 2 on 07/13/2021 by Tr Kim MD at ENDOSCOPY [facility] [employer] [facility] 11/15/2023 [id number] / / Description:ascending colon documented as of this encounter Visit Diagnoses Diagnosis Need for prophylactic vaccination and inoculation against influenza- Primary documented in this encounter Advance Directives Documents on File Type Date Recorded Patient Crumb Packer Expl anation Advance Directives and Living Will 06/15/2022 ADVANCE DIRECTIVE / LIVING WILL Power of Customer Technical Services Manager 06/15/2022 POWER OF A TTORNEY Care Teams Burrer Hand Relationship Specialty Start Date End Date Mary Kenyon DO [address] [place] [address] PCP - General Family Medicine 11/27/17 documented as of this encounter
--- OUTSIDE RECORDS SUMMARY | 2024-07-15 20:41 | External Medical Summary | Summary of Care ---
Author Name Unknown Organization [facility] Address [address] [facility] [place] [address] Phone [phone] Care Team Providers Care Adjunct Political Science Instructor Name Role Phone Mary Kenyon DO Primary Care Provider Reason for Visit * Reason Comments Follow Up 6-8 week follow up * Precert (Within 10 days (routine)) - Authorized Specialty Diagnoses / Procedures Referred By Apollo sylvester Referred To Contact Ophthalmology Diagnoses Exudative age-related macular degeneration, left eye, with active choroidal neovascularization (HCC) Procedures MS INJECTION, FARICIMAB-SVOA, 0.1 MG MS INTRAVITREAL NJX PHARMACOLOGIC AGT SPX Dimitry Schneider DO Phone: tel: fax: Referral ID Status Reason Start Date Expiration Date V isits Requested Visits Authorized [id number] Authorized Precert 07/29/2022 04/16/2099 [id number] Encounter Details Date Type Department Care Team (Late st Contact Info) Description 02/27/2024 8:00 AM EST Office Visit Ophthalmology, [facility] [address] [facility] [place] [address] Dimitry Schneider DO [address] [place] [address] Exudative age-related macular degeneration of left eye [...] DELETE [facility] DETECT Study: Project # [id number], Validation Technician: Beltran Gann, PhD. SUMMARY: Goal: Establish [...] contact study staff at ; after hours Validation Technician via the [facility] hospital lead furnace operator . Please contact study team before resolving/deleting from patients problem list. Study phone number: [phone]. Diagnosis changed due to Research Module. Go to Snapshot for study details. Encounter for examination fo r normal comparison and control in clinical research program 03/12/2018 12/16/2021 Overview (08/03/2020): DO NOT DELETE - [facility] DETECT Study: Project # [id number], Validation Technician: Yonas Yates, MS, MPH. SUMMARY: Goal: [...] contact study staff at ; after hours Validation Technician via the [facility] lead furnace operator . - Please contact study team before resolving/deleting from patients problem list. Study phone number: [phone]. Diagnosis changed due to Research Module. Go [...] - 02/27/2024 8:00 AM EST [facility] [place] Nursing Notes: [...] Dimitry Schneider DO Vabysmo 6mg lot # [id number] Exp. Date: 06/2025 * Luis Alberto Palmer [...] 8:40 AM EST Office Visit Family Practice [facility] [address] [facility] [place] [address] Mary Kenyon DO [address] [facility] [place] [address] 06/19/2024 8:30 AM EST Imaging Radiology, [facility] [address] [facility] [place] [address] Scheduled Orders Name Type Priority Associated Diagnoses [...] D LEVEL ONCE IN A LIFETIME-USE SMARTSET# [id number] Completed 12/24/2019, 04/27/2018 Influenza Vaccine (FLU shot) [...] this encounter Medical Devices Implanted Type Area Bike Assembler Device Identifier Shelf Expiration Date Model / Serial / Lot Clip Quick 2.8mm 230cm - [id number] Implanted:Qty: 2 on 07/13/2021 by Tr Kim MD at ENDOSCOPY [facility] [employer] [facility] 11/15/2023 [id number] / / Description:ascending colon [...] Documents on File Type Date Recorded Patient Production Engineer Expl anation Advance Directives and Living Will 06/15/2022 ADVANCE DIRECTIVE / LIVING WILL Power of Safety Professional 06/15/2022 POWER OF A TTORNEY Care Teams Adjunct Political Science Instructor Relationship Specialty Start Date End Date Mary Kenyon DO [address] [place] [address] PCP - General Family Medicine 11/27/17 documented as of this encounter
--- OUTSIDE RECORDS SUMMARY | 2024-07-15 20:41 | External Medical Summary | Summary of Care ---
Author Name Unknown Organization [facility] Address [address] [address] Phone [phone] Care Team Providers Care Top Dyeing Machine Loader Name Role Phone Mary Kenyon DO Primary Care Provider Reason for Visit * Reason Comments Follow Up 6-8 week follow up * Precert (Within 10 days (routine)) - Authorized Specialty Diagnoses / Procedures Referred By Apollo sylvester Referred To Contact Ophthalmology Diagnoses Exudative age-related macular degeneration, left eye, with active choroidal neovascularization (HCC) Procedures [place] INJECTION, FARICIMAB-SVOA, 0.1 MG [place] INTRAVITREAL NJX PHARMACOLOGIC AGT SPX Dimitry Schneider DO Phone: tel: fax: Referral ID Status Reason Start Date Expiration Date V isits Requested Visits Authorized [id number] Authorized Precert 07/29/2022 04/16/2099 [id number] Encounter Details Date Type Department Care Team (Late st Contact Info) Description 02/27/2024 8:00 AM EST Office Visit Ophthalmology, [facility] [address] [facility] [place] [address] Dimitry Schneider DO [address] [place] [address] Exudative age-related macular degeneration of left eye [...] [facility] DETECT Study: Project # [id number], Curb Setter: Beltran Gann, PhD. SUMMARY: Goal: Establish test [...] contact study staff at ; after hours Curb Setter via the [facility] narrow gauge operator . Please contact study team before resolving/deleting from patients problem list. Study phone number: [phone]. Diagnosis changed due to Research Module. Go to Snapshot for study details. Encounter for examination fo r normal comparison and control in clinical research program 03/12/2018 12/16/2021 Overview (08/03/2020): DO NOT DELETE - [facility] Study: Project # [id number], Curb Setter: Yonas Yates, MS, MPH. SUMMARY: Goal: Establish [...] contact study staff at ; after hours Curb Setter via the [facility] narrow gauge operator . - Please contact study team before resolving/deleting from patients problem list. Study phone number: [phone]. Diagnosis changed due to Research Module. Go to Snapshot for study details. documented as of this encounter (statuses as of 02/27/2024) Immunizations Name Administration Dates Next Due COVID-19 mRNA, LNP-s, No Pre serve, 2-Dose Series (Moderna) 01/06/2023 COVID-19 mRNA, LNP-s, No Pre serve, 2-Dose Series (Pfizer) 01/09/2021,06/01/2020,05/08/2020 COVID-19, LNP-s, No Preserve , Sandro-sucrose, Ages 12+ ([employer]) 07/20/2021 COVID-19, MRNA-LNP, 24-25, P R, 30MCG/0.3ML, IM, 12YRS AND ABOVE ([employer]) 01/04/2024 COVID-19, MRNA-LNP, PF, 30 M CG/0.3 mL, 12 YRS AND ABOVE, IM ([facility] [employer]) 07/07/2023 COVID-19, mRNA, LNP-s, PF, B ooster, 100mcg/0.5mg (Moderna) 01/07/2023,12/24/2021 COVID-19, mRNA, LNR-S, Bival ent, PF, 10mcg/0.2 ml ([employer]) 6m to 5 years 12/24/2021 Pneumococcal Conjugate [...] - 02/27/2024 8:00 AM EST [facility] [place] Nursing Notes: Luis Alberto Palmer LPN 02/27/24 [...] Dimitry Schneider DO Vabysmo 6mg lot # [id number] Exp. Date: 06/2025 * Luis Alberto Palmer [...] on: 02/27/2024 08:25 AM Modules accepted: Orders documented in this encounter Plan of Treatment Upcoming Encounters Date Type Department Care Team (Late st Contact Info) Description 05/03/2024 8:40 AM EST Office Visit Family Practice [facility] [address] [facility] [place] [address] Mary Kenyon, [address] [facility] [address] [place] [address] 06/19/2024 8:30 AM EST Imaging Radiology, [facility] [address] [facility] [place] [address] Scheduled Orders Name Type Priority Associated Diagnoses [...] D LEVEL ONCE IN A LIFETIME-USE SMARTSET# [id number] Completed 12/24/2019, 04/27/2018 Influenza Vaccine (FLU shot) [...] this encounter Medical Devices Implanted Type Area Instrument Worker Device Identifier Shelf Expiration Date Model / Serial / Lot Clip Quick 2.8mm 230cm - [id number] Implanted:Qty: 2 on 07/13/2021 by Tr Kim MD at [facility]COPY [facility] [employer] [facility] 11/15/2023 [id number] / / Description:ascending [...] Documents on File Type Date Recorded Patient Umbrella Supervisor Expl anation Advance Directives and Living Will 06/15/2022 ADVANCE DIRECTIVE / LIVING WILL Power of Compounder [employer] 06/15/2022 POWER OF A TTORNEY Care Teams Top Dyeing Machine Loader Relationship Specialty Start Date End Date Mary Kenyon DO [address] [place] [address] PCP - General Family Medicine 11/27/17 documented as of this encounter
--- OUTSIDE RECORDS SUMMARY | 2024-07-15 20:41 | External Medical Summary | Summary of Care ---
Author Name Unknown Organization [facility] Address [address] [facility] [place] [address] Phone [phone] Care Team Providers Care Track Man Name Role Phone Mary Kenyon DO Primary Care Provider Reason for Visit * Reason Comments Follow Up 6-8 week follow up * Precert (Within 10 days (routine)) - Authorized Specialty Diagnoses / Procedures Referred By Apollo sylvester Referred To Contact Ophthalmology Diagnoses Exudative age-related macular degeneration, left eye, with active choroidal neovascularization (HCC) Procedures CT INJECTION, FARICIMAB-SVOA, 0.[address] INTRAVITREAL NJX PHARMACOLOGIC AGT SPX Dimitry Schneider DO Phone: tel: fax: Referral ID Status Reason Start Date Expiration Date V isits Requested Visits Authorized [id number] Authorized Precert 07/29/2022 04/16/2099 [id number] Encounter Details Date Type Department Care Team (Late st Contact Info) Description 02/27/2024 8:00 AM EST Office Visit Ophthalmology, [facility] [address] [facility] [place] [address] Dimitry Schneider DO [address] [place] [address] Exudative age-related macular degeneration of left eye [...] 11/18/2019 Overview (08/03/2020): DO NOT DELETE [facility] DETECT Study: Project # [id number], Spectrograph Operator: Beltran Gann, PhD. SUMMARY: Goal: Establish [...] contact study staff at ; after hours Spectrograph Operator via the [facility] fountain operator . Please contact study team before resolving/deleting from patients problem list. Study phone number: [phone]. Diagnosis changed due to Research Module. Go to Snapshot for study details. Encounter for examination fo r normal comparison and control in clinical research program 03/12/2018 12/16/2021 Overview (08/03/2020): DO NOT DELETE - [facility] Study: Project # [id number], Spectrograph Operator: Yonas Yates, MS, MPH. SUMMARY: Goal: [...] contact study staff at ; after hours Spectrograph Operator via the [facility] fountain operator . - Please contact study team before resolving/deleting from patients problem list. Study phone number: [phone]. Diagnosis changed due to Research Module. Go to Snapshot for study details. documented as of this encounter (statuses as of 02/27/2024) Immunizations Name Administration Dates Next Due COVID-19 mRNA, LNP-s, No Pre serve, 2-Dose Series (Moderna) 01/06/2023 COVID-19 mRNA, LNP-s, No Pre serve, 2-Dose Series (Pfizer) 01/09/2021,06/01/2020,05/08/2020 COVID-19, LNP-s, No Preserve , Sandro-sucrose, Ages 12+ ([employer]) 07/20/2021 COVID-19, MRNA-LNP, 24-25, P R, 30MCG/0.3ML, IM, 12YRS AND ABOVE ([employer]) 01/04/2024 COVID-19, MRNA-LNP, PF, 30 M CG/0.3 mL, 12 YRS AND ABOVE, IM ([facility]) 07/07/2023 COVID-19, mRNA, LNP-s, PF, B ooster, 100mcg/0.5mg (Moderna) 01/07/2023,12/24/2021 COVID-19, mRNA, LNR-S, Bival ent, PF, 10mcg/0.2 ml ([employer]) 6m to 5 years 12/24/2021 Pneumococcal Conjugate [...] - 02/27/2024 8:00 AM EST [facility] [place] Nursing Notes: [...] Dimitry Schneider DO Vabysmo 6mg lot # [id number] Exp. Date: 06/2025 * Luis Alberto Palmer [...] 8:40 AM EST Office Visit Family Practice [facility] [address] [facility] [place] [address] Mary Kenyon, [address] [facility] [place] [address] 06/19/2024 8:30 AM EST Imaging Radiology, [facility] [address] [facility] [place] [address] Scheduled Orders Name Type Priority Associated Diagnoses [...] D LEVEL ONCE IN A LIFETIME-USE SMARTSET# [id number] Completed 12/24/2019, 04/27/2018 Influenza Vaccine (FLU shot) [...] this encounter Medical Devices Implanted Type Area Resident Medical Officer Device Identifier Shelf Expiration Date Model / Serial / Lot Clip Quick 2.8mm 230cm - [id number] Implanted:Qty: 2 on 07/13/2021 by Tr Kim MD at [facility]COPY [facility] [employer] [facility] 11/15/2023 [id number]-202UR.[id number] / / Description:ascending colon [...] Documents on File Type Date Recorded Patient Implementation Architect Expl anation Advance Directives and Living Will 06/15/2022 ADVANCE DIRECTIVE / LIVING WILL Power of Horse Racing Analyst 06/15/2022 POWER OF A TTORNEY Care Teams Track Man Relationship Specialty Start Date End Date Mary Kenyon DO [address] [place] [address] PCP - General Family Medicine 11/27/17 documented as of this encounter
--- OUTSIDE RECORDS SUMMARY | 2024-07-15 20:41 | External Medical Summary | Summary of Care ---
Author Name Unknown Organization [facility] Address [address] [place] [address] Phone [phone] Care Team Providers Care Supervisor Policy Change Clerks Name Role Phone Mary Kenyon DO Primary Care Provider Reason for Visit * Reason Onset Date Comments Advice 01/05/2024 Encounter Details Date Type Department Care Team (Late st Contact Info) Description 01/05/2024 Telephone Family Practice [facility] [place] [address] [facility] [place] [address] Mary Kenyon DO [address] [facility] [place] [address] Advice Allergies Active Allergy Reactions Criticality Noted Date Comments Amoxicillin 06/27/2023 Other Reaction(s): rash Penicillins Hives 04/26/2018 documented as of this encounter (statuses as of 01/25/2024) Medications Medication Sig Dispensed Refills Start Date End Date Status Multiple Vitamins-Minerals (MULTIVITAMIN ADULT) TABSIndications:Po stmenopausal status, age-related Take 1 Tab by mouth daily. Active Calcium Citrate-Vitamin D 315-250 MG-UNIT Oral TabletIndications: Postmenopausal status, age-related Take 1 Tab by mouth daily. Active Estradiol 0.1 MG/GM vaginal creamIndications:V aginal dryness Administer 2 g into the vagina [...] day. Active LORazepam 0.5 MG Oral Tablet (Ativan)Indication s:Primary insomnia Take 0.5 Tablets (0.25 mg) by mouth daily as needed for Insomnia. 30 Tablet 1 02/22/2022 Active Rosuvastatin Calcium 5 MG Oral Tablet (Crestor) Take 1 Tablet by mouth in the morning. 30 Tablet 11 04/25/2023 Active Eszopiclone 2 MG Oral TabletIndications: Primary insomnia Take 1 Tablet by mouth at bedtime as needed for Sleep. 30 Tablet 1 09/18/2023 Active Alendronate Sodium 70 MG Oral Tablet (Fosamax)Indicatio ns:Age-related osteoporosis without current pathological fracture TAKE 1 TABLET BY MOUTH ONCE WEEKLY FIRST THING IN THE MORNING ON AN EMPTY STOMACH WITH 8 OUNCES OF WATER WAIT 30 MINUTES BEFORE EATING, DRINKING OR TAKING OTHER MEDICATIONS 12 Tablet 2 10/23/2023 Active Lisinopril 10 MG Oral Tablet (Prinivil) Take 1 Tablet by mouth in the morning. 30 Tablet 5 08/03/2023 4 Discontinue d(Refill) Hospital, Clinic, or Other Facility Administered Medication [...] as of this encounter (statuses as of 01/25/2024) Active Problems Problem Noted Date Diagnosed Date [...] as of this encounter (statuses as of 01/25/2024) Resolved Problems Problem Noted Date Diagnosed Date Resolved Date Encounter for examination fo r normal comparison and control in clinical research program 03/12/2018 11/18/2019 Overview: DO NOT DELETE [employer] [facility] Study: Project # [id number], Steward/Stewardess Tourist Class: Beltran Gann, PhD. SUMMARY: Goal: Establish test [...] contact study staff at ; after hours Steward/Stewardess Tourist Class via the [facility] hospital steam conditioning operator . Please contact study team before resolving/deleting from patients problem list. Study phone number: [phone]. Diagnosis changed due to Research Module. Go to Snapshot for study details. Encounter for examination fo r normal comparison and control in clinical research program 03/12/2018 12/16/2021 Overview: DO NOT DELETE - [employer] DETECT Study: Project # [id number], Steward/Stewardess Tourist Class: Yonas Yates, MS, MPH. SUMMARY: Goal: Establish [...] contact study staff at ; after hours Steward/Stewardess Tourist Class via the [facility] hospital steam conditioning operator . - Please contact study team before resolving/deleting from patients problem list. Study phone number: [phone]. Diagnosis changed due to Research Module. Go to Snapshot for study details. documented as of this encounter (statuses as of 01/25/2024) Immunizations Name Administration Dates Next Due COVID-19 mRNA, LNP-s, No Pre serve, 2-Dose Series (Moderna) 01/06/2023 COVID-19 mRNA, LNP-s, No Pre serve, 2-Dose Series (Pfizer) 01/09/2021,06/01/2020,05/08/2020 COVID-19, LNP-s, No Preserve , Sandro-sucrose, Ages 12+ (Pfizer) 07/20/2021 COVID-19, MRNA-LNP, 23-24, P F, 30 MCG/0.3 mL, 12 YRS AND ABOVE, IM ([employer]-Comirnaty) 07/07/2023 COVID-19, MRNA-LNP, 24-25, P R, 30MCG/0.3ML, IM, 12YRS AND ABOVE (Pfizer-Comirnaty) 01/04/2024 COVID-19, mRNA, LNP-s, PF, B ooster, 100mcg/0.5mg (Moderna) 01/07/2023,12/24/2021 COVID-19, mRNA, LNR-S, Bival ent, PF, 10mcg/0.2 ml (Moderna) 6m to 5 years 12/24/2021 Pneumococcal Conjugate Vacc, 13 Valent (Prevnar) 02/23/2017 Pneumococcal Polysaccharide PPV23 (Pneumovax) 06/13/2018 Season Influenza, Quad, PF, Adjuvanted, 65+ Yrs, IM (FLUAD) 01/07/2020 Seasonal Influenza, PF, 6 M & above, [...] 12/26/2022 Does the household have a re lar [...] on file documented as of this encounter Miscellaneous Notes * Telephone Encounter - Kimber Urban, MANASA - 01/05/2024 10:07 AM EDT Patient was in for her AWV today. She reports since starting lisinopril a few months ago her blood pressures are on the lower side. She is checking daily in the morning on her home cuff, she has systolic readings in the 90's - low 100's. Diastolic usually lower 60's. Pulse is consistently in the 60's. She does not feel lightheaded,does feel fatigued sometimes, but states she is okay and "not overly concerned" but wanted to run this past her PCP. Is not reporting a cough. She is wondering if these numbers are okay, or should the medication be decreased? Today in the office her reading was 102/62. Dr. Keiter, Any concerns with her blood pressure numbers? Any adjustments to lisinopril at this time? Thank you! Provider to address: above Reason for Call: Advice Contact: In Clinic Contact Type: Advice Provider In-Basket: No Outcome: see above Face to face time spent with Patient (minutes): 10 Total Time including non face to face (minutes): 10 documented in this encounter Plan of Treatment Upcoming Encounters Date Type Department Care Team (Late st Contact Info) Description 02/07/2024 7:45 AM EDT [facility] [address] [facility] [place] [address] 02/27/2024 8:00 AM EST Office Visit Ophthalmology, [facility] [address] [facility] [place] [address] Dimitry Schneider DO [address] [facility] [place] [address] 05/03/2024 8:40 AM EST Office Visit Family Practice [facility] [address] [facility] [place] [address] Mary Kenyon, [address] [facility] [place] [address] 06/19/2024 8:30 AM EST Imaging Radiology, [facility] [address] [facility] [place] [address] Scheduled Procedures Name Priority Associated Diagnoses Date/Ti me COLONOSCOPY FLEXIBLE PROXIMAL DIAGNOSTIC Recall History of colon polyps Health Maintenance Due Date Last Done Comments Cologuard 09/09/1996 Fecal Occult Blood Test 09/09/1996 Sigmoidoscopy 09/09/1996 Influenza Vaccine (FLU shot) (#1) 2023 01/02/2023, 01/24/2022, 01/04/2021, Additional history exists DXA Scan 12/28/2023 12/27/2021, 12/16, 05/01/2019 Mammogram [...] D LEVEL ONCE IN A LIFETIME-USE SMARTSET# [id number] Completed 12/24/2019, 04/27/2018 COVID-19 Vaccine Completed 01/04/2024, , 01/07/2023, Additional history exists HPV (Gardasil) Vaccine Aged Out No lo nger eligible based on patient's age to complete this topic Hepatitis B Vaccine Aged Out No longe r eligible based on patient's age to complete this topic MENINGOCOCCAL (MENACTRA/MENVEO) Aged Out No longer eligible based on patient's age to complete this topic documented as of this encounter Medical Devices Implanted Type Area Farm Or Ranch Animal Caretaker Device Identifier Shelf Expiration Date Model / Serial / Lot Clip Quick 2.8mm 230cm - [id number] Implanted:Qty: 2 on 07/13/2021 by Tr Kim MD at [facility]COPY [facility] [employer] 11/15/2023 [id number]-202UR.[id number] / / Description:ascending colon documented as of this encounter Advance Directives Documents on File Type Date Recorded Patient Help Desk Assistant Expl anation Advance Directives and Living Will 06/15/2022 ADVANCE DIRECTIVE / LIVING WILL Power of Superior Court Justice 06/15/2022 POWER OF A TTORNEY Care Teams Supervisor Policy Change Clerks Relationship Specialty Start Date End Date Mary Kenyon DO [address] [place] [address] PCP - General Family Medicine 11/27/17 documented as of this encounter
[2024-07-15] MEDS ORDERED: METOPROLOL TARTRATE 25 MG TAB PO SCH (21:00)
[2024-07-15] MEDS ORDERED: APIXABAN 5 MG TABLET PO SCH (21:00)
--- NOTE | 2024-07-16 07:58 | Electrocardiogram Report ---
Test Reason : Blood Pressure : */* mmHG Vent. Rate : 69 BPM Atrial Rate : 69 BPM P-R Int : 158 ms QRS Dur : 86 ms QT Int : 436 ms P-R-T Axes : 69 86 72 degrees QTcB Int : 467 ms Normal sinus rhythm Normal ECG When compared with ECG of 15-Jul-2024 12:36, Sinus rhythm has replaced Atrial fibrillation Vent. rate has decreased by 54 bpm Confirmed by Gaudencio Leach ([id number]) on 07/16/2024 7:58:28 AM Referred By: REFERRED SELF Confirmed By: Gaudencio Leach
== END 2024-07-15 18:53 | disposition home or self-care (01) ==
LOC: EDINP 12:23 → ED 12:23 → EDINP 18:13